=== PATIENT | male | born 1945 | race Caucasian/White ===

== ENCOUNTER 2016-12-20 14:06 | Inpatient (IN) | payer OTHER ==
[2016-12-20] MEDS ORDERED: NS 1000 ML 500 ML IV ONE (14:56)
[2016-12-20] MEDS ORDERED: LEVAQUIN PREMIX IV 750 MG 750 MG/150 ML BAG IV SCH (15:00)
[2016-12-20 15:20] VITALS: BMI 27.1
[2016-12-20] MEDS ORDERED: NS 1000 ML 1,000 ML ONE (15:37)
[2016-12-20 15:47] LABS: BASOPHILS # (AUTO) 0.1 X10^3/uL (0.0-0.1); BASOPHILS % (AUTO) 1.2 % (0.2-1.0); EOSINOPHILS # (AUTO) 0.4 x10^3/uL (0.0-0.2); EOSINOPHILS % (AUTO) 3.5 % (0.9-2.9); HEMATOCRIT 37.4 % (42.0-54.0); LYMPHOCYTES % (AUTO) 9.3 % (21.0-51.0); MEAN CORPUSCULAR HEMOGLOBIN 31.6 pg (27.0-34.0); MEAN CORPUSCULAR HGB CONC 34.8 g/dL (33.0-35.0); MEAN CORPUSCULAR VOLUME 90.6 fL (80.0-100.0); MEAN PLATELET VOLUME 9.1 fL (7.4-11.0); MONOCYTES # (AUTO) 1.1 x10^3/uL (0.3-0.8); MONOCYTES % (AUTO) 10.3 % (0.0-13.0); NEUTROPHILS # (AUTO) 7.8 x10^3/uL (2.2-4.8); NEUTROPHILS % (AUTO) 75.7 % (42.0-75.0); PLATELET COUNT 239 X10^3/uL (150.0-450.0); RED BLOOD COUNT 4.12 X10^6/uL (4.7-6.0); RED CELL DISTRIBUTION WIDTH 14.6 % (11.6-16.5); WHITE BLOOD COUNT 10.3 X10^3/uL (3.6-10.0)
[2016-12-20] MEDS: ROBITUSSIN DM PO SCH ×3 (15:47→21:38)
[2016-12-20 16:06] LABS: ALANINE AMINOTRANSFERASE 19 Units/L (12-78); ALBUMIN 3.4 g/dL (3.4-5.0); ALKALINE PHOSPHATASE 93 Units/L (46-116); ASPARTATE AMINO TRANSFERASE 15 Units/L (15-37); BLOOD UREA NITROGEN 22 mg/dL (7-18); CALCIUM 9.6 mg/dL (8.5-10.1); CARBON DIOXIDE 28.9 mmol/L (21-32); CHLORIDE 101 mmol/L (98-107); COR NA(FOR HYPERGLY) 139 mmol/L (136-145); CREATININE 1.86 mg/dL (0.70-1.30); DIGOXIN 1.02 ng/mL (0.9-2); SODIUM 139 mmol/L (136-145); eGFR BLACK RACES 47 (>60); eGFR NON BLACK RACES 38 (>60)
[2016-12-20 16:08] LABS: LACTIC ACID 1.5 mmol/L (0.4-2.0)
[2016-12-20] MEDS: DUONEB 0.5 MG/3 MG NEB SCH ×5 (16:10→21:31)
[2016-12-20] MEDS ORDERED: SALINE 3% 15 ML NEB TX ONE (16:17)
[2016-12-20] MEDS ORDERED: SALINE 3% 15 ML NEB TX NEB ONE (16:18)
--- NOTE | 2016-12-20 17:21 | RAD ---
HISTORY: Sepsis, fever Study: PA and lateral views of the chest Comparison: 11/08/2013 Findings: There is a rounded opacity measuring 3 cm in the left upper lobe. No effusion or pneumothorax identif ied. There is suggestion of additional opacities in lung bases on the lateral view. The cardiac and m ediastinal contours are within normal limits. The soft tissues are unremarkable. IMPRESSION: 1. 3 cm rounded opacity in the right upper lobe. Differential considerations would include infection versus mass. Additional opacity is suggested at the lung bases on the lateral view. CT of the chest w ith contrast is recommended for further evaluation. Reported By:
[2016-12-20] MEDS: ZOSYN VIAL 4.5 GM 4.5 GM in NS 100 ML IV + SPIKE MINIBAG* 100 ML IV SCH ×2 (17:33→22:34)
[2016-12-20] MEDS: NS 1000 ML 1,000 ML IV SCH ×2 (20:14→22:34)
[2016-12-20] MEDS: RESTORIL CAP 15 MG PO PRN (21:37)
[2016-12-20 21:53] LABS: BILIRUBIN,URINE NEGATIVE (NEGATIVE); BLOOD/HEMOGLOBIN,URINE 1+ (NEGATIVE); GLUCOSE, URINE NEGATIVE (NEGATIVE); KETONES,URINE NEGATIVE (NEGATIVE); LEUKOCYTE ESTERASE ,URINE 1+ (NEGATIVE); NITRITES,URINE NEGATIVE (NEGATIVE); PROTEIN,URINE 2+ (NEGATIVE); UROBILINOGEN,URINE NORMAL (NORMAL)
[2016-12-20 22:05] LABS: APPEARANCE,URINE CLEAR (CLEAR); BACTERIA,URINE 1+ /HPF (NEGATIVE); COLOR,URINE YELLOW (YELLOW); MUCUS,URINE FEW /HPF (NEGATIVE); RBC,URINE 0-3 /HPF (NEGATIVE); SQUAMOUS EPITHELIAL CELL,UR RARE /HPF (NEGATIVE)
[2016-12-21] MEDS: ULTRAM PO PRN ×2 (04:50→09:06)
[2016-12-21] MEDS: ZOSYN VIAL 4.5 GM 4.5 GM in NS 100 ML IV + SPIKE MINIBAG* 100 ML IV SCH ×3 (05:00→21:20)
[2016-12-21] MEDS: NS 1000 ML 1,000 ML IV SCH ×3 (05:01→21:16)
[2016-12-21 05:47] LABS: ALANINE AMINOTRANSFERASE 15 Units/L (12-78); ALBUMIN 2.5 g/dL (3.4-5.0); ALKALINE PHOSPHATASE 76 Units/L (46-116); ASPARTATE AMINO TRANSFERASE 17 Units/L (15-37); BLOOD UREA NITROGEN 20 mg/dL (7-18); CALCIUM 8.8 mg/dL (8.5-10.1); CARBON DIOXIDE 26.8 mmol/L (21-32); CHLORIDE 107 mmol/L (98-107); CREATININE 1.25 mg/dL (0.70-1.30); SODIUM 141 mmol/L (136-145); TOTAL PROTEIN 6.4 g/dL (6.4-8.2); eGFR BLACK RACES > 60 (>60); eGFR NON BLACK RACES > 60 (>60)
[2016-12-21 05:48] LABS: BASOPHILS # (AUTO) 0.1 X10^3/uL (0.0-0.1); BASOPHILS % (AUTO) 0.8 % (0.2-1.0); EOSINOPHILS # (AUTO) 0.4 x10^3/uL (0.0-0.2); EOSINOPHILS % (AUTO) 4.3 % (0.9-2.9); HEMATOCRIT 33.8 % (42.0-54.0); HEMOGLOBIN 11.6 g/dL (13.5-18.0); LYMPHOCYTES # (AUTO) 1.8 X10^3/uL (1.3-2.9); LYMPHOCYTES % (AUTO) 17.7 % (21.0-51.0); MEAN CORPUSCULAR HEMOGLOBIN 31.1 pg (27.0-34.0); MEAN CORPUSCULAR HGB CONC 34.3 g/dL (33.0-35.0); MEAN CORPUSCULAR VOLUME 90.7 fL (80.0-100.0); MEAN PLATELET VOLUME 9.3 fL (7.4-11.0); MONOCYTES % (AUTO) 9.9 % (0.0-13.0); NEUTROPHILS # (AUTO) 6.9 x10^3/uL (2.2-4.8); NEUTROPHILS % (AUTO) 67.3 % (42.0-75.0); PLATELET COUNT 187 X10^3/uL (150.0-450.0); RED BLOOD COUNT 3.72 X10^6/uL (4.7-6.0); RED CELL DISTRIBUTION WIDTH 14.5 % (11.6-16.5); WHITE BLOOD COUNT 10.2 X10^3/uL (3.6-10.0)
[2016-12-21] MEDS ORDERED: NS 100 ML IV 100 ML IV ONE (06:34)
[2016-12-21] MEDS: ROBITUSSIN DM PO SCH ×4 (09:05→21:18)
[2016-12-21] MEDS: LEVAQUIN PREMIX IV 750 MG 750 MG/150 ML BAG IV SCH (09:05)
[2016-12-21] MEDS: DUONEB 0.5 MG/3 MG NEB SCH ×4 (09:29→20:50)
[2016-12-21] MEDS ORDERED: PATIENT'S HOME MEDICATION (Meclizine Hcl [Meclizine Hcl] 12.5 MG) PO PRN (10:09)
[2016-12-21] MEDS ORDERED: NORCO 5/325 MG TAB PO PRN (10:12)
[2016-12-21] MEDS ORDERED: DHA PO SCH (10:15)
[2016-12-21] MEDS ORDERED: FISH OIL PO SCH (10:15)
[2016-12-21] MEDS ORDERED: FLECAINIDE ACETATE 100 MG PO SCH (10:15)
[2016-12-21] MEDS ORDERED: OMEGA PO SCH (10:15)
[2016-12-21] MEDS ORDERED: EPA PO SCH (10:15)
--- NOTE | 2016-12-21 10:19 | CT ---
CT CHEST WITH IV CONTRAST HISTORY: Septic shock with fever and pneumonia Comparison: Chest x-ray 12/20/2016 Technique: Multiple axial images of the chest were obtained from the thoracic inlet to the upper abdo men after the administration of IV contrast.Dose reduction techniques including Automated Exposure Co ntrol (AEC) and adjustment of mA and kV were utlized. Findings: The heart is normal in size. No pericardial effusion. multiple mediastinal and hilar lymph nodes. Fo r example AP window node measuring 1.5 cm on series 4, image 23, left posterior hilar node measuring 2.4 cm on series 4, image 28, right hilar node measuring 2.2 cm on series 4, image 27. Prevascular no de measuring 2.9 cm on series 4, image 16. Although not optimized to detect pulmonary embolism, no la rge central pulmonary emboli are seen. Spiculated mass in the right upper lobe measuring 3.5 x 3.3 cm on series 4, image 17. Moderate emphys irvin trace atelectasis at the right lung base. No suspicious pulmonary nodules or masses. Limited images of the upper abdomen are unremarkable. No aggressive osseous lesions. IMPRESSION: 1. Spiculated right upper lobe lung mass. While this may represent focal infection, malignancy cert ainly can not be excluded especially in the presence of multiple prominent mediastinal lymph nodes. R ecommend reimaging upon resolution of acute symptoms if patient is truly septic and has symptoms of p neumonia. Reported By:
[2016-12-21] MEDS ORDERED: ANTIVERT TAB 25 MG PO PRN (10:22)
--- NOTE | 2016-12-21 10:55 | DR.UPDATE ---
H&P Update History and Physical Update: PATIENT WAS SEEN IN THE OFFICE ON 12/20/16. A H&P WAS COMPLETED PRIOR TO ADMISSION. PATIENT HAS BEEN SEEN AND EXAMINED WITH NO CHANGES NOTED TO H&P. Changes noted: NO Yes with the following:
[2016-12-21] MEDS: NEURONTIN CAP 400 MG PO SCH ×3 (10:58→21:19)
[2016-12-21] MEDS: LANOXIN PO SCH (10:58)
[2016-12-21] MEDS: FERROUS SULFATE PO SCH ×2 (10:58→21:19)
[2016-12-21] MEDS: ZESTRIL TAB 40 MG PO SCH (10:58)
[2016-12-21] MEDS: NORVASC TAB 10 MG PO SCH (10:58)
[2016-12-21] MEDS: TAB-A-VITE PO SCH (10:58)
[2016-12-21] MEDS: ASPIRIN EC 81 MG PO SCH (10:59)
[2016-12-21] MEDS: LASIX PO SCH ×2 (11:00→21:19)
[2016-12-21] MEDS: COREG TAB 12.5 MG PO SCH ×2 (11:00→21:19)
[2016-12-21] MEDS ORDERED: POTASSIUM CHLORIDE PO SCH (17:00)
[2016-12-21] MEDS: K-DUR TAB 20 MEQ PO SCH (17:20)
[2016-12-21] MEDS: LIPITOR TAB 40 MG PO SCH (21:18)
[2016-12-21] MEDS: TUSSIONEX PENNKINETIC SUSP PO PRN (21:18)
[2016-12-21] MEDS: RESTORIL CAP 15 MG PO PRN (21:19)
[2016-12-21] MEDS: TAMBOCOR PO SCH (21:20)
[2016-12-22] MEDS: NS 1000 ML 1,000 ML IV SCH ×4 (05:19→22:25)
[2016-12-22] MEDS: ZOSYN VIAL 4.5 GM 4.5 GM in NS 100 ML IV + SPIKE MINIBAG* 100 ML IV SCH ×3 (05:19→21:21)
[2016-12-22] MEDS: NEURONTIN CAP 400 MG PO SCH ×3 (05:19→21:23)
[2016-12-22 06:06] LABS: BASOPHILS # (AUTO) 0.1 X10^3/uL (0.0-0.1); BASOPHILS % (AUTO) 1.4 % (0.2-1.0); EOSINOPHILS # (AUTO) 0.3 x10^3/uL (0.0-0.2); EOSINOPHILS % (AUTO) 3.8 % (0.9-2.9); HEMATOCRIT 33.2 % (42.0-54.0); HEMOGLOBIN 11.5 g/dL (13.5-18.0); LYMPHOCYTES # (AUTO) 1.5 X10^3/uL (1.3-2.9); LYMPHOCYTES % (AUTO) 18.2 % (21.0-51.0); MEAN CORPUSCULAR HEMOGLOBIN 30.7 pg (27.0-34.0); MEAN CORPUSCULAR HGB CONC 34.7 g/dL (33.0-35.0); MEAN CORPUSCULAR VOLUME 88.5 fL (80.0-100.0); MEAN PLATELET VOLUME 8.9 fL (7.4-11.0); MONOCYTES # (AUTO) 0.9 x10^3/uL (0.3-0.8); MONOCYTES % (AUTO) 10.4 % (0.0-13.0); NEUTROPHILS # (AUTO) 5.5 x10^3/uL (2.2-4.8); NEUTROPHILS % (AUTO) 66.2 % (42.0-75.0); PLATELET COUNT 205 X10^3/uL (150.0-450.0); RED BLOOD COUNT 3.76 X10^6/uL (4.7-6.0); RED CELL DISTRIBUTION WIDTH 14.4 % (11.6-16.5); WHITE BLOOD COUNT 8.3 X10^3/uL (3.6-10.0)
[2016-12-22 06:22] LABS: ALANINE AMINOTRANSFERASE 17 Units/L (12-78); ALBUMIN 2.6 g/dL (3.4-5.0); ALKALINE PHOSPHATASE 81 Units/L (46-116); ASPARTATE AMINO TRANSFERASE 18 Units/L (15-37); BLOOD UREA NITROGEN 10 mg/dL (7-18); CALCIUM 8.8 mg/dL (8.5-10.1); CARBON DIOXIDE 29.1 mmol/L (21-32); CHLORIDE 105 mmol/L (98-107); COR CA(FOR HYPOALB) 9.9 mg/dL (8.5-10.1); COR NA(FOR HYPERGLY) 142 mmol/L (136-145); CREATININE 0.89 mg/dL (0.70-1.30); SODIUM 142 mmol/L (136-145); TOTAL PROTEIN 6.7 g/dL (6.4-8.2); eGFR BLACK RACES > 60 (>60); eGFR NON BLACK RACES > 60 (>60)
--- NOTE | 2016-12-22 06:36 | RAD ---
HISTORY: Shortness of breath Study: Chest AP portable Comparison: CT chest December 21, 2016, chest x-ray December 20, 2016 Findings: The patient is status post median sternotomy. The heart is within normal limits in size. The sobia are normal. The lungs are free of acute alveolar infiltrates. Once again noted is a 3.37 centimeter righ t upper lobe nodule . Although this could represent a rounded pneumonia primary lung neoplasm is also a distinct possibility. If this does not resolve with treatment or if the patient does not have pneu monia clinically PET-CT is recommended for further evaluation. No pleural effusions are identified. T he bony thorax is unremarkable. IMPRESSION: 3.37 centimeter rounded density in the right upper lobe. See discussion and recommendations as above Reported By:
--- NOTE | 2016-12-22 08:12 | PCM.PROG ---
Progress Note - Progress Note for Day of Date: 12/21/16 - Subjective Subjective: WAS ADMITTED FOR SEPTIC SHOCK, FEVER, AND PNEUMONIA. TODAY , HE IS ALERT AND ORIENTED, LYING IN BED ON MORNING ROUNDS. PATIENT'S AND DAUGHTER ARE AT BEDSIDE. HE IS NOTED WITH COMPLAINTS OF SHORTNESS OF BREATH, COUGH, AND RIGHT UPPER CHEST PAIN. ON EXAMINATION, LUNGS ARE NOTED WITH DIFFUSE WHEEZING AND RHONCHI TO AUSCULTATION. ABDOMEN IS SOFT, ROUND, AND NON-TENDER WITH NORMAL BOWEL SOUNDS NOTED IN ALL QUADRANTS. HE IS NOTED ON NASAL CANNULA WITH OXYGEN AT 2LPM. HE IS ON TELEMETRY WITH SINUS RHYTHM, HR 84 NOTED. HIS VITAL SIGNS THIS MORNING ARE 99.1-84-22-94%-141/65. BLOOD PRESSURE HAS IMPROVED. IT WAS 77/37 IN THE OFFICE. A CBC AND CMP WERE OBTAINED THIS MORNING. ABNORMAL LAB VALUES INCLUDE THE FOLLOWING: WBC 10.2, RBC 3.72, HGB 11.6, HCT 33.8, BUN 20, GLUCOSE 101, ALBUMIN 2.5. FLU SWAB WAS OBTAINED YESTERDAY AND IS NEGATIVE. CHEST XRAY FROM ADMISSION RECOMMENDED A CHEST CT TO EVALUATE A SUSPICIOUS OPACITY. A CT WAS OBTAINED YESTERDAY AFTERNOON. RESULTS ARE STILL PENDING THIS MORNING. TODAY, WE WILL CONTINUE WITH CURRENT PLAN OF CARE. WE PLAN TO FOLLOW UP WITH AM LABS AND CONTNUE TO MONITOR PATIENT. - Past Medical Family Social History Past Med/Fam/Surg Hx: No changes since H&P Allergies: Allergies warfarin [From Coumadin] Allergy (Verified 12/20/16 14:56) - Review of Systems ROS: No change since H&P - Vital Signs and I&O's Vital Signs: Temperature 99.1 F Pulse Rate [Apical] 74 Pulse Rate 89 Respiratory Rate 20 Blood Pressure [Left Arm] 142/67 Blood Pressure [Right Arm] 136/65 Blood Pressure 127/63 O2 Sat by Pulse Oximetry 93 Intake and Output: Intake & Output 12/19/16 12/20/16 12/21/16 12/22/16 11:59 11:59 11:59 11:59 Intake Total 2141 4502 Output Total 200 4750 Balance 1941 -248 - Physical Exam Oriented: Normal Eyes: Normal Ear: Normal Nose: Normal Throat: Normal Respiratory: Generalized, Wheezes Cardiovascular: Normal : Normal Auscultation: Bowel Sounds: Normal Palpation: Normal Tenderness: Normal Skin: Normal Musculoskeletal: Normal Psychiatric: Normal Mood Description: Calm Affect: Normal Speech Pattern: Clear, Appropriate - Laboratory and Diagnostics Result Diagrams: 12/22/16 05:22 12/22/16 05:22 Labs: 12/20/16 15:35 Blood Blood Culture - Preliminary 12/20/16 15:17 Blood Blood Culture - Preliminary 12/20/16 17:10 Sputum - Expectorated Sputum Sputum Culture - Preliminary 12/20/16 17:10 Sputum - Expectorated Sputum - Final 12/20/16 21:40 Urine,Clean Catch Urine Culture - Preliminary Laboratory WBC 8.3 X10^3/uL (3.6-10.0) 12/22/16 05:22 RBC 3.76 X10^6/uL (4.7-6.0) L 12/22/16 05:22 Hgb 11.5 g/dL (13.5-18.0) L 12/22/16 05:22 Hct 33.2 % (42.0-54.0) L 12/22/16 05:22 MCV 88.5 fL (80.0-100.0) 12/22/16 05:22 MCH 30.7 pg (27.0-34.0) 12/22/16 05:22 MCHC 34.7 g/dL (33.0-35.0) 12/22/16 05:22 RDW 14.4 % (11.6-16.5) 12/22/16 05:22 Plt Count 205 X10^3/uL (150.0-450.0) 12/22/16 05:22 MPV 8.9 fL (7.4-11.0) 12/22/16 05:22 Neut % 66.2 % (42.0-75.0) 12/22/16 05:22 Lymph % 18.2 % (21.0-51.0) L 12/22/16 05:22 [place] % 10.4 % (0.0-13.0) 12/22/16 05:22 Eos % 3.8 % (0.9-2.9) H 12/22/16 05:22 Baso % 1.4 % (0.2-1.0) H 12/22/16 05:22 Neut # 5.5 x10^3/uL (2.2-4.8) H 12/22/16 05:22 Lymph # 1.5 X10^3/uL (1.3-2.9) 12/22/16 05:22 [place] # 0.9 x10^3/uL (0.3-0.8) H 12/22/16 05:22 Eos # 0.3 x10^3/uL (0.0-0.2) H 12/22/16 05:22 Baso # 0.1 X10^3/uL (0.0-0.1) 12/22/16 05:22 Absolute Nucleated RBC 0.0 /100WBC 12/22/16 05:22 Sodium 142 mmol/L (136-145) 12/22/16 05:22 Corrected Sodium 142 mmol/L (136-145) 12/22/16 05:22 Potassium 3.6 mmol/L (3.5-5.1) 12/22/16 05:22 Chloride 105 mmol/L (98-107) 12/22/16 05:22 Carbon Dioxide 29.1 mmol/L (21-32) 12/22/16 05:22 BUN 10 mg/dL (7-18) 12/22/16 05:22 Creatinine 0.89 mg/dL (0.70-1.30) 12/22/16 05:22 Est GFR (MDRD) Af Amer > 60 (>60) 12/22/16 05:22 Est GFR (MDRD) Non-Af > 60 (>60) 12/22/16 05:22 Glucose 113 mg/dL (65-99) H 12/22/16 05:22 Lactic Acid 1.5 mmol/L (0.4-2.0) 12/20/16 15:17 Calcium 8.8 mg/dL (8.5-10.1) 12/22/16 05:22 Corrected Calcium 9.9 mg/dL (8.5-10.1) 12/22/16 05:22 Total Bilirubin 0.20 mg/dL (0.2-1.0) 12/22/16 05:22 AST 18 Units/L (15-37) 12/22/16 05:22 ALT 17 Units/L (12-78) 12/22/16 05:22 Alkaline Phosphatase 81 Units/L (46-116) 12/22/16 05:22 Total Protein 6.7 g/dL (6.4-8.2) 12/22/16 05:22 Albumin 2.6 g/dL (3.4-5.0) L 12/22/16 05:22 Globulin 4.1 g/dL (2.5-4.5) 12/22/16 05:22 Albumin/Globulin Ratio 0.6 Ratio (1.1-2.1) L 12/22/16 05:22 Specimen Type Clean catch urine 12/20/16 21:40 Urine Color Yellow (YELLOW) 12/20/16 21:40 Urine Appearance Clear (CLEAR) 12/20/16 21:40 Urine pH 5.0 (5.0 - 8.0) 12/20/16 21:40 Ur Specific [place] 1.015 (1.000-1.030) 12/20/16 21:40 Urine Protein 2+ (NEGATIVE) 12/20/16 21:40 Urine Glucose (UA) Negative (NEGATIVE) 12/20/16 21:40 Urine Ketones Negative (NEGATIVE) 12/20/16 21:40 Urine Occult Blood 1+ (NEGATIVE) 12/20/16 21:40 Urine Nitrite Negative (NEGATIVE) 12/20/16 21:40 Urine Bilirubin Negative (NEGATIVE) 12/20/16 21:40 Urine Urobilinogen Normal (NORMAL) 12/20/16 21:40 Ur Leukocyte Esterase 1+ (NEGATIVE) 12/20/16 21:40 Urine RBC 0-3 /HPF (NEGATIVE) 12/20/16 21:40 Urine WBC 3-5 /HPF (NEGATIVE) 12/20/16 21:40 Ur Squamous Epith Cells Rare /HPF (NEGATIVE) 12/20/16 21:40 Urine Bacteria 1+ /HPF (NEGATIVE) 12/20/16 21:40 Urine Mucus Few /HPF (NEGATIVE) 12/20/16 21:40 Ur Culture Indicated? Yes/culture set up 12/20/16 21:40 Digoxin 1.02 ng/mL (0.9-2) 12/20/16 15:17 Influenza A (H1N1) PCR Not detected (NOT DETECT) 12/20/16 16:48 Influenza Type A (PCR) Negative (NEGATIVE) 12/20/16 16:48 Influenza Type B (PCR) Negative (NEGATIVE) 12/20/16 16:48 - Plan (1) Pneumonia Status: Acute Qualifiers: Pneumonia type: due to unspecified organism Laterality: right Lung location: upper lobe of lung Qualified Code(s): J18.1 - Lobar pneumonia, unspecified organism Plan: LEVAQUIN 750MG IV DAILY, ZOSYN 4.5GM IV TID, DUONEB QID, SUPPLEMENTAL OXYGEN, CHEST CT TO EVALUATE OPACITY, CONTINUE TO MONITOR
[2016-12-22] MEDS: LEVAQUIN PREMIX IV 750 MG 750 MG/150 ML BAG IV SCH (08:31)
[2016-12-22] MEDS: K-DUR TAB 20 MEQ PO SCH ×2 (08:32→17:29)
[2016-12-22] MEDS: ZESTRIL TAB 40 MG PO SCH (08:32)
[2016-12-22] MEDS: TAMBOCOR PO SCH ×2 (08:32→21:22)
[2016-12-22] MEDS: PriLOSEC PO SCH (08:32)
[2016-12-22] MEDS: LANOXIN PO SCH (08:33)
[2016-12-22] MEDS: ASPIRIN EC 81 MG PO SCH (08:33)
[2016-12-22] MEDS: LOVAZA PO SCH (08:33)
[2016-12-22] MEDS: TAB-A-VITE PO SCH (08:33)
[2016-12-22] MEDS: FERROUS SULFATE PO SCH ×2 (08:33→21:23)
[2016-12-22] MEDS: ROBITUSSIN DM PO SCH ×4 (08:34→21:22)
[2016-12-22] MEDS: LASIX PO SCH ×2 (08:34→21:23)
[2016-12-22] MEDS: COREG TAB 12.5 MG PO SCH ×2 (08:34→21:23)
[2016-12-22] MEDS: NORVASC TAB 10 MG PO SCH (08:34)
[2016-12-22] MEDS: DUONEB 0.5 MG/3 MG NEB SCH ×4 (09:00→20:53)
[2016-12-22] MEDS ORDERED: XANAX PO PRN (10:35)
--- NOTE | 2016-12-22 11:42 | PCM.PROG ---
Progress Note - Progress Note for Day of Date: 12/22/16 - Subjective Subjective: WAS ADMITTED FOR SEPTIC SHOCK, FEVER, AND PNEUMONIA. TODAY , HE IS ALERT AND ORIENTED, LYING IN BED ON MORNING ROUNDS. PATIENT'S IS AT BEDSIDE. HE CONTINUES WITH COMPLAINTS OF COUGH AND RIGHT UPPER CHEST PAIN. ON EXAMINATION, LUNGS CONTINUE WITH DIFFUSE WHEEZING AND RHONCHI TO AUSCULTATION. ABDOMEN IS SOFT, ROUND, AND NON-TENDER WITH NORMAL BOWEL SOUNDS NOTED IN ALL QUADRANTS. HE IS NOTED ON NASAL CANNULA WITH OXYGEN AT 2LPM. HE IS ON TELEMETRY WITH SINUS RHYTHM, HR 74 NOTED. HIS VITAL SIGNS THIS MORNING ARE 99.1-74-20-93%-142/67. BLOOD PRESSURE HAS IMPROVED. A CBc, CMP, AND CHEST XRAY WERE OBTAINED THIS MORNING. ABNORMAL LAB VALUES INCLUDE THE FOLLOWING: RBC 3.76 , HGB 11.5, HCT 33.2, GLUCOSE 113, ALBUMIN 2.6. CHEST CT RESULTS WERE BACK AND REPORTED SPICULATED RIGHT UPPER LOBE LUNG MASS, MULTIPLE MEDIASTINAL AND HILAR LYMPH NODES, MODERATE EMPHYSEMA TRACE ATELECTASIS AT THE RIGHT LLUNG BASE. CHEST XRAY FROM THIS MORNING REPORTED THE SAME MASS, WITH NO PLEURAL EFFUSIONS NOTED. TODAY, WE WILL CONTINUE TO TREAT FOR PNEUMONIA. CASE MANAGEMENT WILL OBTAIN AN APPOINTMENT FOR PATIENT WITH , CARDIOTHORACIS SURGEON IN [place], [place]. OTHERWISE, WE WILL FOLLOW UP WITH AM LABS AND CONTNUE TO MONITOR PATIENT. - Past Medical Family Social History Past Med/Fam/Surg Hx: No changes since H&P Allergies: Allergies warfarin [From Coumadin] Allergy (Verified 12/20/16 14:56) - Review of Systems ROS: No change since H&P - Vital Signs and I&O's Vital Signs: Temperature 99.2 F Pulse Rate [Apical] 83 Pulse Rate 77 Respiratory Rate 20 Blood Pressure [Left Arm] 126/59 Blood Pressure [Right Arm] 136/65 Blood Pressure 127/63 O2 Sat by Pulse Oximetry 95 Intake and Output: Intake & Output 12/19/16 12/20/16 12/21/16 12/22/16 11:59 11:59 11:59 11:59 Intake Total 2141 4502 Output Total 200 4750 Balance 1941 -248 - Physical Exam Oriented: Normal Eyes: Normal Ear: Normal Nose: Normal Throat: Normal Respiratory: Generalized, Wheezes Cardiovascular: Normal : Normal Auscultation: Bowel Sounds: Normal Palpation: Normal Tenderness: Normal Skin: Normal Musculoskeletal: Normal Psychiatric: Normal Mood Description: Calm Affect: Normal Speech Pattern: Clear, Appropriate - Laboratory and Diagnostics Result Diagrams: 12/22/16 05:22 12/22/16 05:22 Labs: 12/20/16 17:10 Sputum - Expectorated Sputum Sputum Culture - Preliminary 12/20/16 17:10 Sputum - Expectorated Sputum - Final 12/20/16 21:40 Urine,Clean Catch Urine Culture - Final 12/20/16 15:35 Blood Blood Culture - Preliminary 12/20/16 15:17 Blood Blood Culture - Preliminary Laboratory WBC 8.3 X10^3/uL (3.6-10.0) 12/22/16 05:22 RBC 3.76 X10^6/uL (4.7-6.0) L 12/22/16 05:22 Hgb 11.5 g/dL (13.5-18.0) L 12/22/16 05:22 Hct 33.2 % (42.0-54.0) L 12/22/16 05:22 MCV 88.5 fL (80.0-100.0) 12/22/16 05:22 MCH 30.7 pg (27.0-34.0) 12/22/16 05:22 MCHC 34.7 g/dL (33.0-35.0) 12/22/16 05:22 RDW 14.4 % (11.6-16.5) 12/22/16 05:22 Plt Count 205 X10^3/uL (150.0-450.0) 12/22/16 05:22 MPV 8.9 fL (7.4-11.0) 12/22/16 05:22 Neut % 66.2 % (42.0-75.0) 12/22/16 05:22 Lymph % 18.2 % (21.0-51.0) L 12/22/16 05:22 [place] % 10.4 % (0.0-13.0) 12/22/16 05:22 Eos % 3.8 % (0.9-2.9) H 12/22/16 05:22 Baso % 1.4 % (0.2-1.0) H 12/22/16 05:22 Neut # 5.5 x10^3/uL (2.2-4.8) H 12/22/16 05:22 Lymph # 1.5 X10^3/uL (1.3-2.9) 12/22/16 05:22 [place] # 0.9 x10^3/uL (0.3-0.8) H 12/22/16 05:22 Eos # 0.3 x10^3/uL (0.0-0.2) H 12/22/16 05:22 Baso # 0.1 X10^3/uL (0.0-0.1) 12/22/16 05:22 Absolute Nucleated RBC 0.0 /100WBC 12/22/16 05:22 Sodium 142 mmol/L (136-145) 12/22/16 05:22 Corrected Sodium 142 mmol/L (136-145) 12/22/16 05:22 Potassium 3.6 mmol/L (3.5-5.1) 12/22/16 05:22 Chloride 105 mmol/L (98-107) 12/22/16 05:22 Carbon Dioxide 29.1 mmol/L (21-32) 12/22/16 05:22 BUN 10 mg/dL (7-18) 12/22/16 05:22 Creatinine 0.89 mg/dL (0.70-1.30) 12/22/16 05:22 Est GFR (MDRD) Af Amer > 60 (>60) 12/22/16 05:22 Est GFR (MDRD) Non-Af > 60 (>60) 12/22/16 05:22 Glucose 113 mg/dL (65-99) H 12/22/16 05:22 Lactic Acid 1.5 mmol/L (0.4-2.0) 12/20/16 15:17 Calcium 8.8 mg/dL (8.5-10.1) 12/22/16 05:22 Corrected Calcium 9.9 mg/dL (8.5-10.1) 12/22/16 05:22 Total Bilirubin 0.20 mg/dL (0.2-1.0) 12/22/16 05:22 AST 18 Units/L (15-37) 12/22/16 05:22 ALT 17 Units/L (12-78) 12/22/16 05:22 Alkaline Phosphatase 81 Units/L (46-116) 12/22/16 05:22 Total Protein 6.7 g/dL (6.4-8.2) 12/22/16 05:22 Albumin 2.6 g/dL (3.4-5.0) L 12/22/16 05:22 Globulin 4.1 g/dL (2.5-4.5) 12/22/16 05:22 Albumin/Globulin Ratio 0.6 Ratio (1.1-2.1) L 12/22/16 05:22 Specimen Type Clean catch urine 12/20/16 21:40 Urine Color Yellow (YELLOW) 12/20/16 21:40 Urine Appearance Clear (CLEAR) 12/20/16 21:40 Urine pH 5.0 (5.0 - 8.0) 12/20/16 21:40 Ur Specific [place] 1.015 (1.000-1.030) 12/20/16 21:40 Urine Protein 2+ (NEGATIVE) 12/20/16 21:40 Urine Glucose (UA) Negative (NEGATIVE) 12/20/16 21:40 Urine Ketones Negative (NEGATIVE) 12/20/16 21:40 Urine Occult Blood 1+ (NEGATIVE) 12/20/16 21:40 Urine Nitrite Negative (NEGATIVE) 12/20/16 21:40 Urine Bilirubin Negative (NEGATIVE) 12/20/16 21:40 Urine Urobilinogen Normal (NORMAL) 12/20/16 21:40 Ur Leukocyte Esterase 1+ (NEGATIVE) 12/20/16 21:40 Urine RBC 0-3 /HPF (NEGATIVE) 12/20/16 21:40 Urine WBC 3-5 /HPF (NEGATIVE) 12/20/16 21:40 Ur Squamous Epith Cells Rare /HPF (NEGATIVE) 12/20/16 21:40 Urine Bacteria 1+ /HPF (NEGATIVE) 12/20/16 21:40 Urine Mucus Few /HPF (NEGATIVE) 12/20/16 21:40 Ur Culture Indicated? Yes/culture set up 12/20/16 21:40 Digoxin 1.02 ng/mL (0.9-2) 12/20/16 15:17 Influenza A (H1N1) PCR Not detected (NOT DETECT) 12/20/16 16:48 Influenza Type A (PCR) Negative (NEGATIVE) 12/20/16 16:48 Influenza Type B (PCR) Negative (NEGATIVE) 12/20/16 16:48 - Plan (1) Pneumonia Status: Acute Qualifiers: Pneumonia type: due to unspecified organism Laterality: right Lung location: upper lobe of lung Qualified Code(s): J18.1 - Lobar pneumonia, unspecified organism Plan: LEVAQUIN 750MG IV DAILY, ZOSYN 4.5GM IV TID, DUONEB QID, SUPPLEMENTAL OXYGEN, CHEST CT TO EVALUATE OPACITY, CONTINUE TO MONITOR (2) Anxiety Status: Acute Plan: XANAX 0.25MG PO BID, CONTINUE TO MONITOR (3) Hypertension Status: Chronic Qualifiers: Hypertension type: essential hypertension Qualified Code(s): I10 - Essential (primary) hypertension Plan: CONTINUE NORVASC 10MG PO DAILY, CONTINUE COREG 12.5MG PO BID, CONTINUE LISINOPRIL 40MG PO DAILY, CONTINUE TO MONITOR (4) Hyperlipidemia Status: Acute Qualifiers: Hyperlipidemia type: mixed hyperlipidemia Qualified Code(s): E78.2 - Mixed hyperlipidemia Plan: CONTINUE LIPITOR, CONTINUE TO MONITOR (5) Irregular heart rhythm Status: Chronic Plan: CONTINUE TAMBOCOR, CONTINUE DIGOXIN, CONTINUE TO MONITOR (6) Insomnia Status: Acute Qualifiers: Insomnia type: unspecified Qualified Code(s): G47.00 - Insomnia, unspecified Plan: CONTINUE RESTORIL 15MG PO HS PRN, CONTINUE TO MONITOR (7) Congestive heart failure Status: Chronic Qualifiers: Congestive heart failure type: unspecified congestive heart failure type Congestive heart failure chronicity: chronic Qualified Code(s): I50.9 - Heart failure, unspecified Plan: CONTINUE LASIX 40MG PO BID, CONTINUE COREG 12.5MG PO BID, CONTINUE TO MONITOR (8) Vertigo Status: Chronic Plan: CONTINUE MECLIZINE, CONTINUE TO MONITOR (9) GERD (gastroesophageal reflux disease) Status: Chronic Qualifiers: Esophagitis presence: esophagitis presence not specified Qualified Code(s) : K21.9 - Gastro-esophageal reflux disease without esophagitis Plan: CONTINUE PRILOSEC, CONTINUE TO MONITOR
[2016-12-22] MEDS: LIPITOR TAB 40 MG PO SCH (21:22)
[2016-12-22] MEDS: TUSSIONEX PENNKINETIC SUSP PO PRN (21:22)
[2016-12-22] MEDS: RESTORIL CAP 15 MG PO PRN (21:23)
[2016-12-23 06:13] LABS: BASOPHILS # (AUTO) 0.1 X10^3/uL (0.0-0.1); BASOPHILS % (AUTO) 1.1 % (0.2-1.0); EOSINOPHILS # (AUTO) 0.4 x10^3/uL (0.0-0.2); EOSINOPHILS % (AUTO) 5.2 % (0.9-2.9); HEMATOCRIT 33.7 % (42.0-54.0); HEMOGLOBIN 11.8 g/dL (13.5-18.0); LYMPHOCYTES # (AUTO) 1.6 X10^3/uL (1.3-2.9); LYMPHOCYTES % (AUTO) 19.6 % (21.0-51.0); MEAN CORPUSCULAR HEMOGLOBIN 30.7 pg (27.0-34.0); MEAN CORPUSCULAR VOLUME 87.8 fL (80.0-100.0); MONOCYTES # (AUTO) 0.7 x10^3/uL (0.3-0.8); MONOCYTES % (AUTO) 9.3 % (0.0-13.0); NEUTROPHILS # (AUTO) 5.2 x10^3/uL (2.2-4.8); NEUTROPHILS % (AUTO) 64.8 % (42.0-75.0); PLATELET COUNT 227 X10^3/uL (150.0-450.0); RED BLOOD COUNT 3.84 X10^6/uL (4.7-6.0); RED CELL DISTRIBUTION WIDTH 14.4 % (11.6-16.5)
[2016-12-23] MEDS: NEURONTIN CAP 400 MG PO SCH (06:16)
[2016-12-23] MEDS: ZOSYN VIAL 4.5 GM 4.5 GM in NS 100 ML IV + SPIKE MINIBAG* 100 ML IV SCH (06:16)
[2016-12-23] MEDS: K-DUR TAB 20 MEQ PO SCH (06:17)
[2016-12-23 06:26] LABS: ALANINE AMINOTRANSFERASE 16 Units/L (12-78); ALBUMIN 2.6 g/dL (3.4-5.0); ALKALINE PHOSPHATASE 78 Units/L (46-116); ASPARTATE AMINO TRANSFERASE 15 Units/L (15-37); BLOOD UREA NITROGEN 9 mg/dL (7-18); CARBON DIOXIDE 28.4 mmol/L (21-32); CHLORIDE 106 mmol/L (98-107); COR CA(FOR HYPOALB) 10.1 mg/dL (8.5-10.1); COR NA(FOR HYPERGLY) 143 mmol/L (136-145); CREATININE 0.92 mg/dL (0.70-1.30); SODIUM 142 mmol/L (136-145); TOTAL PROTEIN 6.7 g/dL (6.4-8.2); eGFR BLACK RACES > 60 (>60); eGFR NON BLACK RACES > 60 (>60)
--- NOTE | 2016-12-23 06:39 | RAD ---
Chest, one view Indication: Shortness of breath Comparison: December 22, 2016 Findings: Heart size is normal with prior median sternotomy again noted. Given differences in techniq ue, the right upper lobe nodular opacity appears grossly unchanged. No focal consolidation, effusion or pneumothorax is identified. Osseous thorax is unremarkable. Impression: Stable rounded opacity within the right upper lobe. Again, further characterization with PET-CT shoul d be considered, if clinically warranted. Reported By:
[2016-12-23] MEDS: DUONEB 0.5 MG/3 MG NEB SCH (09:28)
[2016-12-23] MEDS: LEVAQUIN PREMIX IV 750 MG 750 MG/150 ML BAG IV SCH (09:39)
[2016-12-23] MEDS: ROBITUSSIN DM PO SCH (09:39)
[2016-12-23] MEDS: COREG TAB 12.5 MG PO SCH (09:40)
[2016-12-23] MEDS: PriLOSEC PO SCH (09:40)
[2016-12-23] MEDS: LANOXIN PO SCH (09:41)
[2016-12-23] MEDS: FERROUS SULFATE PO SCH (09:41)
[2016-12-23] MEDS: ZESTRIL TAB 40 MG PO SCH (09:41)
[2016-12-23] MEDS: LOVAZA PO SCH (09:41)
[2016-12-23] MEDS: LASIX PO SCH (09:41)
[2016-12-23] MEDS: NORVASC TAB 10 MG PO SCH (09:41)
[2016-12-23] MEDS: ASPIRIN EC 81 MG PO SCH (09:42)
[2016-12-23] MEDS: TAB-A-VITE PO SCH (09:42)
[2016-12-23] MEDS: TAMBOCOR PO SCH (09:42)
[2016-12-23] MEDS ORDERED: K-DUR TAB 20 MEQ PO PRN (11:52)
[2016-12-23] MEDS ORDERED: K-RIDER 10 MEQ/NS 100 ML 10 MEQ/100 ML BAG IV PRN (11:52)
[2016-12-23] MEDS ORDERED: K-LYTE EFFERVESCENT PO PRN (11:52)
[2016-12-23] MEDS ORDERED: POTASSIUM CHLORIDE LIQ 20 MEQ UDC PO PRN (11:52)
[2016-12-23 14:08] VITALS: BP 149/74
== END 2016-12-23 12:00 | disposition home or self-care (01) | DRG 871 ==
LOC: ICU 14:06 → UNDOADMIN 14:06 → ICU 14:40
PROVIDERS: ADMIT Internal Medicine; ATTEND Internal Medicine
DX: A41.89 Other specified sepsis (principal); J15.0 Pneumonia due to Klebsiella pneumoniae; I95.89 Other hypotension; R91.8 Other nonspecific abnormal finding of lung field; F41.8 Other specified anxiety disorders; I10 Essential (primary) hypertension; E78.2 Mixed hyperlipidemia; G47.00 Insomnia, unspecified; I50.9 Heart failure, unspecified; K21.9 Gastro-esophageal reflux disease without esophagitis; R42 Dizziness and giddiness; I49.8 Other specified cardiac arrhythmias
CPT/HCPCS: 36415; 71010; 71020; 71260; 80053; 80162; 81001; 83605; 85025; 87040; 87070; 87077; 87086; 87186; 87205; 87502; 87503; 93005; 94640; A4222; J1956; J2543; J7620

== ENCOUNTER 2017-01-18 00:09 | Emergency (ER) | payer OTHER ==
[2017-01-18 00:27] VITALS: BP 175/70; BMI 27.5
--- NOTE | 2017-01-18 00:32 | DR.GENAD ---
HPI - HPI Comment HPI Comment: HOME MED DID NOT HELP. NEGATIVE TRAUMA. HISTORY LOW BACK PAIN WITH SCIATICA. - Complaint/Symptoms Chief Complaint Doctors Comments: LOWER BACK PAIN RADIATING TO RIGHT LEG WORSE TONIGHT. Chief Complaint:: PT STATES THAT HE "HAS A BAD NERVE" IN HIS RT LEG. C/O PAIN CONSTANTLY SHOOTING FROM HIS LOWER BACK TO HIS RT HIP DOWN HIS LEG. Self Treatment fo Chief Complaint: PT STATES HE TOO 2 OXYCODONE ABOUT 1.5 HOURS AGO AND HAS GOTTEN NO RELIEF - Nurses notes reviewed Nurses Notes Review: Yes - Source History Provided: Patient - Mode of Arrival Mode of Arrival: Ambulatory - Timing Onset of Chief Complaint: 10/13/16 Came on: Suddenly - Duration Duration: Constant Duration: Days - Severity Severity: Moderate PMH - PMH Past Medical History: Yes Past Medical History: Hypertension Past Surgical History: Yes Surgical History: Appendectomy, CABG/Valve Surgery, Ortho Surgery - Family History History of Family Medical Conditions: Yes Family Medical History: Diabetes Mellitus, Cancer, [place], Sudden Cardiac , Hypertension - Social History Do you use any recreational Drugs:: No - infectious screening Have you traveled outside the country in the last 6 months?: No ROS - Review of Systems Constitutional: No Symptoms Reported Eyes: No Symptoms Reported ENTM: No Symptoms Reported Respiratoy: No Symptoms Reported Cardiovascular: No Symptoms Reported Gastrointestinal/Abdominal: No Symptoms Reported Genitourinary: No Symptoms Reported Neurological: No Symptoms Reported Musculoskeletal: Back Pain, Muscle Pain, Back Integumentary: No Symptoms Reported Hematologic/Lymphatic: No Symptoms Reported Endocrine: No Symptoms Reported All Other Systems: Reviewed and Negative PE - Vital Signs Vitals: Temperature 97.4 F Pulse Rate 73 Respiratory Rate 18 Blood Pressure [Left Arm] 149/74 Blood Pressure [Right Arm] 136/65 Blood Pressure 175/70 O2 Sat by Pulse Oximetry 98 - General Limitations: No Limitations General Appearance: Alert - Head Head Exam: Normal Inspection - Eyes Eye exam: Normal Appearance - ENT ENT Exam: Normal External Ear Exam External Ear Exam: Normal External Inspection TM/Canal Exam: Bilateral Normal Nose Exam: Normal Nose Exam Mouth Exam: Normal Inspection Throat Exam: Normal Inspection - Neck Neck Exam: Trachea Midline - Chest Chest Inspection: Symmetric Chest Wall Rise - Respiratory Respiratory Exam: Normal Lung Sounds Bilat Respiratory Exam: Bilateral Clear to Auscultation - Cardiovascular Cardiovascular Exam: Regular Rate, Normal Rhythm, Normal Heart Sounds - Abdominal Exam Abdominal Exam: Normal Bowel Sounds, Soft. negative: Tenderness - Back Back Exam: Paraspinal Tenderness - Neurologic Neurological Exam: Alert, Oriented X3 - Psychiatric Psychiatric Exam: Normal Affect, Normal Mood - Skin Skin Exam: Normal Color [facility] - Additional Information Additional Information Obtained From: Family - Differential Diagnosis Differential Diagnosis: BACK PAIN, SCIATICA Course - Treatment Treatment: SEE ORDERS. IM PAIN MED IN ED. - Education/Counseling Education/Counseling: Patient, Family, Education Educated On: Diagnosis, Needs for Follow Up - Diagnosis Discharge Problem: Back pain Qualifiers: Back pain location: low back pain Chronicity: acute Back pain laterality: right Sciatica presence: with sciatica Sciatica laterality: sciatica of right side Qualified Code(s): M54.41 - Lumbago with sciatica, right side - Discharge Plan Disposition: 01 HOME, SELF-CARE Condition: Stable Prescriptions: Cyclobenzaprine HCl [FLEXERIL 10 MG *] 10 mg PO BID PRN #10 tab PRN Reason: Ibuprofen [MOTRIN TAB 600 MG *] 600 mg PO TID PRN #20 tab PRN Reason: Pain/Inflammation - Follow ups/Referrals Follow ups/Referrals: Tc Abdi [Primary Care Provider] - 3 days - Instructions Instructions: Back Pain, Adult, [id number] Additional Instructions: RETURB TO ED IF WORSE.
[2017-01-18] MEDS ORDERED: NORFLEX INJ IM ONE (00:44)
[2017-01-18] MEDS ORDERED: TORADOL 60 MG VIAL ONE (00:44)
[2017-01-18] MEDS ORDERED: NORFLEX INJ ONE (00:44)
[2017-01-18] MEDS ORDERED: TORADOL 60 MG VIAL IM ONE (00:44)
== END 2017-01-18 01:53 | disposition home or self-care (01) ==
LOC: ER 00:09
DX: M54.41 Lumbago with sciatica, right side (principal)
CPT/HCPCS: 96372; 99282; J1885; J2360

== ENCOUNTER 2024-02-06 22:11 | Inpatient (IN) ==
--- NOTE | 2024-02-06 22:23 | DR.SOBA ---
HPI Time Seen Time Seen by Provider: 02/06/24 22:22 HPI Comment HPI Comment: 78 y/o with hx cad s/p stent x 1, avr followed by tavr and afib in with at least several days of worsening sob and le edema; he says it started a couple of days ago and his says it started a week ago; he is weak and "can hardly get out of bed"; he uses oxygen at 2lpm / but doesn't feel he's getting enough air; he denies cough, fever, chills, cp, abd pain, n/v/d. PMH PMH Past Medical History: Arthritis, Hypertension and Sleep Apnea Past Surgical History: Yes Surgical History: Angioplasty/Stents, Appendectomy and Ortho Surgery Family History Family Medical History: Diabetes Mellitus and Cancer Social History Do you use any recreational Drugs:: No ROS Review of Systems Constitutional: No Symptoms Reported Eyes: No Symptoms Reported ENTM: No Symptoms Reported Respiratoy: See HPI Cardiovascular: No Symptoms Reported Gastrointestinal/Abdominal: No Symptoms Reported Genitourinary: No Symptoms Reported Neurological: No Symptoms Reported Integumentary: No Symptoms Reported Hematologic/Lymphatic: No Symptoms Reported Endocrine: No Symptoms Reported Psychiatric: No Symptoms Reported PE Vital Signs Vitals: Vital Signs Temperature 97.9 F Pulse Rate 142 Pulse Rate 147 Pulse Rate 146 Pulse Rate 148 Pulse Rate 153 Pulse Rate 151 Pulse Rate 153 Pulse Rate 147 Pulse Rate 145 Pulse Rate 143 Pulse Rate 149 Pulse Rate 141 Pulse Rate 136 Pulse Rate 122 Respiratory Rate 28 Respiratory Rate 28 Respiratory Rate 27 Respiratory Rate 32 Respiratory Rate 32 Respiratory Rate 33 Respiratory Rate 30 Respiratory Rate 31 Respiratory Rate 32 Respiratory Rate 33 Respiratory Rate 29 Respiratory Rate 26 Blood Pressure 152/74 Blood Pressure 148/78 Blood Pressure 130/84 Blood Pressure 139/94 Blood Pressure 140/65 Blood Pressure 135/97 O2 Sat by Pulse Oximetry 99 O2 Sat by Pulse Oximetry 100 O2 Sat by Pulse Oximetry 100 O2 Sat by Pulse Oximetry 100 O2 Sat by Pulse Oximetry 99 O2 Sat by Pulse Oximetry 98 O2 Sat by Pulse Oximetry 97 O2 Sat by Pulse Oximetry 98 O2 Sat by Pulse Oximetry 99 O2 Sat by Pulse Oximetry 98 O2 Sat by Pulse Oximetry 99 O2 Sat by Pulse Oximetry 99 O2 Sat by Pulse Oximetry 96 General Limitations: No Limitations General Appearance: Alert and In No Apparent Distress Head Head Exam: Normal Inspection Eyes Eye exam: Normal Appearance ENT ENT Exam: Normal Exam Neck Neck Exam: Normal Inspection Chest Chest Inspection: Normal Inspection Respiratory Respiratory Exam: Normal Lung Sounds Bilat Respiratory Exam: Bilateral: Clear to Auscultation Cardiovascular Cardiovascular Exam: Regular Rate and Normal Rhythm Abdominal Exam Abdominal Exam: Normal Inspection, Normal Bowel Sounds and Soft Extremities Extremities Exam: Normal Inspection Back Back Exam: Normal Inspection Neurologic Neurological Exam: Alert and Oriented X3 Psychiatric Psychiatric Exam: Normal Affect and Normal Mood Skin Skin Exam: Warm, Dry, Intact and Normal Color Other Exam Other Exam: 3+ pedal edema bilaterally COURSE Reevaluation 1st: Improved Consultation Call Returned: 01:20 Consultation Comments: Dr Mcclure accepts admission. ROR Labs Reviewed Laboratory Results Reviewed?: Yes 02/06/24 22:34 02/06/24 22:34 Laboratory: WBC 8.8 X10^3/uL (3.6-10.0) 02/06/24 22:34 RBC 3.06 X10^6/uL (4.7-6.0) L 02/06/24 22:34 Hgb 9.2 g/dL (13.5-18.0) L 02/06/24 22:34 Hct 26.8 % (42.0-54.0) L 02/06/24 22:34 MCV 87.4 fL (80.0-100.0) 02/06/24 22:34 MCH 30.2 pg (27.0-34.0) 02/06/24 22:34 MCHC 34.6 g/dL (33.0-35.0) 02/06/24 22:34 RDW 17.0 % (11.6-16.5) H 02/06/24 22:34 Plt Count 135 X10^3/uL (150.0-450.0) L 02/06/24 22:34 MPV 8.8 fL (7.4-11.0) 02/06/24 22:34 Neut % (Auto) 77.4 % (42.0-75.0) H 02/06/24 22:34 Lymph % (Auto) 10.5 % (21.0-51.0) L 02/06/24 22:34 [place] % (Auto) 7.4 % (0.0-13.0) 02/06/24 22:34 Eos % (Auto) 4.0 % (0.9-2.9) H 02/06/24 22:34 Baso % (Auto) 0.7 % (0.2-1.0) 02/06/24 22:34 Neut # (Auto) 6.8 x10^3/uL (2.2-4.8) H 02/06/24 22:34 Lymph # (Auto) 0.9 X10^3/uL (1.3-2.9) L 02/06/24 22:34 [place] # (Auto) 0.7 x10^3/uL (0.3-0.8) 02/06/24 22:34 Eos # (Auto) 0.4 x10^3/uL (0.0-0.2) H 02/06/24 22:34 Baso # (Auto) 0.1 X10^3/uL (0.0-0.1) 02/06/24 22:34 Absolute Nucleated RBC 0.0 /100WBC 02/06/24 22:34 PT 15.3 SECONDS (11.8-14.3) 02/06/24 22:34 INR Target Range - 02/06/24 22:34 INR 1.23 (0.8-1.3) 02/06/24 22:34 APTT 32.5 SECONDS (22.9-36.5) 02/06/24 22:34 PTT Comment - 02/06/24 22:34 D-Dimer 1.25 ug/ml (0.0-0.57) H 02/06/24 22:34 Sample Site R bra 02/07/24 00:18 ABG pH 7.450 (7.35-7.45) 02/07/24 00:18 ABG pCO2 59.0 mmHg (35.0-45.0) H* 02/07/24 00:18 ABG pO2 52.0 mmHg (80.0-100.0) L 02/07/24 00:18 ABG HCO3 41.0 mmol/L (22-26) H* 02/07/24 00:18 ABG O2 Saturation 88.0 % (90-100) L 02/07/24 00:18 ABG Base Excess 14.4 mmol/L (-2.0-2.0) H 02/07/24 00:18 Rodriguez Test N/a 02/07/24 00:18 A-a Gradient 102.0 mmHg 02/07/24 00:18 FiO2 32.0 02/07/24 00:18 Blood 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 02/07/24 00:18 Sodium 149 mmol/L (136-145) H 02/06/24 22:34 Corrected Sodium TNP 02/06/24 22:34 Potassium 3.8 mmol/L (3.5-5.1) 02/06/24 22:34 Chloride 107 mmol/L (98-107) 02/06/24 22:34 Carbon Dioxide 39.1 mmol/L (21-32) H 02/06/24 22:34 BUN 22 mg/dL (7-18) H 02/06/24 22:34 Creatinine 0.94 mg/dL (0.70-1.30) 02/06/24 22:34 Est GFR (MDRD) Af Amer > 60 (>60) 02/06/24 22:34 Est GFR (MDRD) Non-Af > 60 (>60) 02/06/24 22:34 Glucose 91 mg/dL (65-99) 02/06/24 22:34 Calcium 7.6 mg/dL (8.5-10.1) L 02/06/24 22:34 Corrected Calcium TNP 02/06/24 22:34 Total Bilirubin 0.50 mg/dL (0.2-1.0) 02/06/24 22:34 AST 24 Units/L (15-37) 02/06/24 22:34 ALT 33 Units/L (12-78) 02/06/24 22:34 Alkaline Phosphatase 111 Units/L (46-116) 02/06/24 22:34 Creatine Kinase 67 Units/L (39-308) 02/06/24 22:34 Troponin I High Sens 17.3 ng/L (4.0-60.0) 02/06/24 22:34 B-Natriuretic Peptide 798 pg/mL (0-79) H 02/06/24 22:34 Total Protein 7.4 g/dL (6.4-8.2) 02/06/24 22:34 Albumin 3.4 g/dL (3.4-5.0) 02/06/24 22:34 Globulin 4.0 g/dL (2.5-4.5) 02/06/24 22:34 Albumin/Globulin Ratio 0.9 Ratio (1.1-2.1) L 02/06/24 22:34 Digoxin 0.48 ng/mL (0.9-2) L 02/06/24 22:34 SARS CoV-2 RNA Rapid SANAM Negative (NEGATIVE) 02/06/24 22:34 XRAY XRAY Interpreted by: Radiologist X-ray Results: CTA: 1. THERE IS A 31 X 51 X 49 MM SOFT TISSUE MASS ALONG THE SUBPLEURAL SURFACE OF THE RIGHT LOWER LOBE THAT IS HIGHLY WORRISOME FOR MALIGNANCY. THERE IS SCAR- LIKE FORMATION AND RETRACTION OF THE RIGHT LOWER LOBE. THE MASS APPEARS TO EXTE ND BEYOND THE FISSURE AND INTO THE REGION OF THE RIGHT MIDDLE LOBE ALTHOUGH THIS IS NOT DEFINITIVELY CLEAR. 2. THERE ARE NO FILLING DEFECTS SEEN IN THE VISUALIZED PULMONARY ARTERIES TO SUGGEST A PULMONARY EMBOLISM. 3. THERE APPEARS TO BE AN AORTIC VALVE STENT IN THE PROXIMAL ASCENDING AORTA ALTHOUGH THIS ISN'T DEFINITIVELY CLEAR. PLEASE CORRELATE WITH PATIENT'S PAST SURGICAL HISTORY. 4. THERE IS FUSIFORM ANEURYSMAL DILATION OF THE ASCENDING AORTA MEASURING 42 X 42 MM. 5. THERE IS MEDIASTINAL LYMPHADENOPATHY WITH THE LARGEST LYMPH NODES IN THE SUBCARINAL REGION MEASURING 26 MM IN SHORT AXIS. 6. THE TRACHEA AND MAINSTEM BRONCHI ARE PATENT. HOWEVER THERE IS IRREGULARITY INVOLVING THE RIGHT MAINSTEM BRONCHUS AND DISTAL AIRWAYS. THE 3RD ORDER VESSELS AND BRONCHI ARE NOT CLEARLY DISCERNIBLE IN THE RIGHT LOWER LOBE. THIS COULD BE DUE TO ASSOCIATED MASS. 7. THERE IS A 31 X 51 X 49 MM SOFT TISSUE MASS ALONG THE SUBPLEURAL SURFACE OF THE RIGHT LOWER LOBE THAT IS HIGHLY WORRISOME FOR MALIGNANCY. 8. THERE IS A MODERATE SIZE RIGHT-SIDED PLEURAL EFFUSION. Opioid Opioid Risk Tool Age (Noel box if 16-45): No History of Preadolescent Sexual Abuse: No Total: 0 Total Score Risk Category: Low Risk Copyright: [facility] predicting aberrant behaviors Discharge Plan Diagnosis Discharge Problem: Congestive heart failure, Right lower lobe lung mass, Pleural effusion, right, AAA (abdominal aortic aneurysm), Atrial fibrillation with RVR Discharge Plan Patient Disposition: 09 ADMITTED INPATIENT Condition: Stable Prescriptions: No Action albuterol sulfate 90 mcg/actuation HFA aerosol inhaler 1 inh inhalation ONCE PRN (Reason: shortness of breath or wheezing) Qty: 6.7 0RF amlodipine 10 mg tablet 10 mg PO QDAY 30 Days Qty: 30 0RF aspirin 81 mg tablet,delayed release (DR/EC) 81 mg PO QDAY 30 Days Qty: 30 0RF calcium carbonate [Calcium 600] 600 mg calcium (1,500 mg) tablet 600 mg PO QDAY 30 Days Qty: 30 0RF Artificial Tears (cmc) 1 % drops 1 drp ophthalmic (eye) QID PRN (Reason: dry eye(s)) Qty: 15 0RF carvedilol 12.5 mg tablet 12.5 mg PO Q12H 30 Days Qty: 60 0RF Rx Instructions: must administer with a meal/food cholecalciferol (vitamin D3) 50 mcg (2,000 unit) capsule 50 mcg PO QDAY 30 Days Qty: 30 0RF clopidogrel 75 mg tablet 75 mg PO QDAY 30 Days Qty: 30 0RF digoxin 125 mcg (0.125 mg) tablet 125 mcg PO QDAY 30 Days Qty: 30 0RF furosemide [Lasix] 40 mg tablet 40 mg PO QDAY 30 Days Qty: 30 0RF gabapentin 300 mg capsule 300 mg PO QDAY 30 Days Qty: 30 0RF lisinopril 40 mg tablet 40 mg PO QDAY 30 Days Qty: 30 0RF magnesium oxide 400 mg magnesium capsule 400 mg PO QDAY 30 Days Qty: 30 0RF meclizine 25 mg tablet 25 mg PO QDAY PRN (Reason: motion sickness) 30 Days Qty: 30 0RF multivitamin Tablet 1 tab PO QDAY 30 Days Qty: 30 0RF omeprazole 40 mg capsule,delayed release(DR/EC) 40 mg PO QDAY 30 Days Qty: 30 0RF potassium chloride 20 mEq tablet extended release 20 meq PO QDAY 30 Days Qty: 30 0RF Rx Instructions: 1/2 in the AM and 1/2 PM. rosuvastatin 40 mg tablet 40 mg PO QDAY 30 Days Qty: 30 0RF vitamin B complex [Vitamins B Complex] Capsule 1 cap PO QDAY 30 Days Qty: 30 0RF Stiolto Respimat 2.5-2.5 mcg/actuation mist 2 puff inhalation QDAY Qty: 4 0RF Health Concerns: Post Hospitalization: new medications and changes needed to prevent readmission or further decline. Pt educated and given instructions on all concerns. Plan of Treatment: Continue with present treatment and follow up plan. Pt is to keep follow up appointment as instructed and take medications as ordered. Follow ups/Referrals Follow ups/Referrals: ,Misc [Primary Care Provider] - 3 days
--- NOTE | 2024-02-06 22:38 | EKG ---
Test Reason : sob Blood Pressure : */* mmHG Vent. Rate : 127 BPM Atrial Rate : * BPM P-R Int : * ms QRS Dur : 108 ms QT Int : 274 ms P-R-T Axes : * -68 73 degrees QTc Int : 398 ms Atrial fibrillation with rapid ventricular response Left axis deviation Incomplete right bundle branch block Inferior infarct , age undetermined Anterior infarct , age undetermined Abnormal ECG No previous ECGs available Confirmed by Joshua Andujar MD ([id number]) on 02/07/2024 7:38:23 AM Referred By: Confirmed By: Joshua Andujar MD
[2024-02-06] MEDS: LASIX IVP ONE (22:47)
[2024-02-06 22:52] LABS: PLATELET COUNT 135 X10^3/uL (150.0-450.0)
[2024-02-06 23:01] LABS: ALANINE AMINOTRANSFERASE 33 Units/L (12-78); ALBUMIN 3.4 g/dL (3.4-5.0); ALKALINE PHOSPHATASE 111 Units/L (46-116); ASPARTATE AMINO TRANSFERASE 24 Units/L (15-37); BLOOD UREA NITROGEN 22 mg/dL (7-18); CALCIUM 7.6 mg/dL (8.5-10.1); CARBON DIOXIDE 39.1 mmol/L (21-32); CHLORIDE 107 mmol/L (98-107); CREATINE KINASE 67 Units/L (39-308); CREATININE 0.94 mg/dL (0.70-1.30); GLUCOSE 91 mg/dL (65-99); POTASSIUM 3.8 mmol/L (3.5-5.1); SODIUM 149 mmol/L (136-145); TOTAL PROTEIN 7.4 g/dL (6.4-8.2); eGFR NON BLACK RACES > 60 (>60)
[2024-02-06 23:05] LABS: BASOPHILS # (AUTO) 0.1 X10^3/uL (0.0-0.1); BASOPHILS % (AUTO) 0.7 % (0.2-1.0); EOSINOPHILS # (AUTO) 0.4 x10^3/uL (0.0-0.2); HEMATOCRIT 26.8 % (42.0-54.0); HEMOGLOBIN 9.2 g/dL (13.5-18.0); LYMPHOCYTES # (AUTO) 0.9 X10^3/uL (1.3-2.9); LYMPHOCYTES % (AUTO) 10.5 % (21.0-51.0); MEAN CORPUSCULAR HEMOGLOBIN 30.2 pg (27.0-34.0); MEAN CORPUSCULAR HGB CONC 34.6 g/dL (33.0-35.0); MEAN CORPUSCULAR VOLUME 87.4 fL (80.0-100.0); MEAN PLATELET VOLUME 8.8 fL (7.4-11.0); MONOCYTES # (AUTO) 0.7 x10^3/uL (0.3-0.8); MONOCYTES % (AUTO) 7.4 % (0.0-13.0); NEUTROPHILS # (AUTO) 6.8 x10^3/uL (2.2-4.8); NEUTROPHILS % (AUTO) 77.4 % (42.0-75.0); RED BLOOD COUNT 3.06 X10^6/uL (4.7-6.0); WHITE BLOOD COUNT 8.8 X10^3/uL (3.6-10.0)
[2024-02-06 23:08] LABS: INR 1.23 (0.8-1.3)
[2024-02-06] MEDS ORDERED: OMNIPAQUE 350 mg/mL 100 mL BTL 100 ML ONE (23:16)
[2024-02-06] MEDS ORDERED: NS 100 ML IV 100 ML ONE (23:16)
[2024-02-07] MEDS: LANOXIN INJ IVP STA (00:15)
[2024-02-07 00:24] LABS: ABG BASE EXCESS 14.4 mmol/L (-2.0-2.0)
--- NOTE | 2024-02-07 00:46 | CT ---
EXAM:CTA CHEST WITH CONTRASTHISTORY:Elevated D-dimerCOMPARISON:None.TECHNIQUE:Axial images were acquired of the chest with IV contrast for a CT angiogram. Coronal and sagittal images were provided. All images were reviewed in a variety of windows and levels. 3D 8 mm thick MIPS images were provided.RADIATION REDUCTION TECHNIQUE: Automated exposure control, Adjustment of the mA and/or kV according to patient size, or iterative reconstruction techniques were used. 8 mm thick axial MIPS images were provided.FINDINGS:CHEST:THYROID GLAND: The thyroid gland is unremarkable.HEART AND VESSELS: There appears to be an aortic valve stent in the proximal ascending aorta although this isn't definitively clear. Please correlate with patient's past surgical history. There is fusiform aneurysmal dilation of the ascending aorta measuring 42 x 42 mm. Heavy calcified plaque burden is noted. The heart size is within normal limits. There is no evidence of a pericardial effusion. The main pulmonary artery size is within normal limits. There are no filling defects seen in the visualized pulmonary arteries to suggest a pulmonary embolism.LYMPHNODES: There is mediastinal lymphadenopathy with the largest lymph nodes in the subcarinal region measuring 26 mm in short axis. There is no evidence of axillary lymphadenopathy. There is no evidence of left hilar lymphadenopathy. Prominent soft tissues in the region of the right hilum are seen which may be right hilar lymphadenopathy although this isn't definitively clear as the right hilum has irregular contour.AIRWAY: The trachea and mainstem bronchi are patent. However there is irregularity involving the right mainstem bronchus and distal airways. The 3rd order vessels and bronchi are not clearly discernible in the right lower lobe.LUNGS: There is a 31 x 51 x 49 mm soft tissue mass along the subpleural surface of the right lower lobe that is highly worrisome for malignancy. There is scar-like formation and retraction of the right lower lobe. The mass appears to extend beyond the fissure and into the region of the right middle lobe although this is not definitively clear. There is no left-sided pleural effusion. There is a moderate size right-sided pleural effusion. There is no evidence of pneumothorax.ESOPHAGUS: The esophagus is grossly unremarkable.BONES: The visualized bones demonstrate degenerative changes. There are no concerning lytic or blastic lesions identified.UPPER ABDOMINAL STRUCTURES: The visualized portions of the upper abdominal structures are unremarkable.IMPRESSION:1. THERE IS A 31 X 51 X 49 MM SOFT TISSUE MASS ALONG THE SUBPLEURAL SURFACE OF THE RIGHT LOWER LOBE THAT IS HIGHLY WORRISOME FOR MALIGNANCY. THERE IS SCAR-LIKE FORMATION AND RETRACTION OF THE RIGHT LOWER LOBE. THE MASS APPEARS TO EXTEND BEYOND THE FISSURE AND INTO THE REGION OF THE RIGHT MIDDLE LOBE ALTHOUGH THIS IS NOT DEFINITIVELY CLEAR.2. THERE ARE NO FILLING DEFECTS SEEN IN THE VISUALIZED PULMONARY ARTERIES TO SUGGEST A PULMONARY EMBOLISM.3. THERE APPEARS TO BE AN AORTIC VALVE STENT IN THE PROXIMAL ASCENDING AORTA ALTHOUGH THIS ISN'T DEFINITIVELY CLEAR. PLEASE CORRELATE WITH PATIENT'S PAST SURGICAL HISTORY.4. THERE IS FUSIFORM ANEURYSMAL DILATION OF THE ASCENDING AORTA MEASURING 42 X 42 MM.5. THERE IS MEDIASTINAL LYMPHADENOPATHY WITH THE LARGEST LYMPH NODES IN THE SUBCARINAL REGION MEASURING 26 MM IN SHORT AXIS.6. THE TRACHEA AND MAINSTEM BRONCHI ARE PATENT. HOWEVER THERE IS IRREGULARITY INVOLVING THE RIGHT MAINSTEM BRONCHUS AND DISTAL AIRWAYS. THE 3RD ORDER VESSELS AND BRONCHI ARE NOT CLEARLY DISCERNIBLE IN THE RIGHT LOWER LOBE. THIS COULD BE DUE TO ASSOCIATED MASS.7. THERE IS A 31 X 51 X 49 MM SOFT TISSUE MASS ALONG THE SUBPLEURAL SURFACE OF THE RIGHT LOWER LOBE THAT IS HIGHLY WORRISOME FOR MALIGNANCY.8. THERE IS A MODERATE SIZE RIGHT-SIDED PLEURAL EFFUSION.THIS IS AN ELECTRONICALLY VERIFIED FINAL [id number]/07/2024 12:42 AM - Electronically signed by Hernando Juarez MD
[2024-02-07] MEDS: LOPRESSOR INJ 5 MG AMP IVP ONE (01:15)
[2024-02-07] MEDS ORDERED: CONSULT PHARMACY - POTASSIUM & MAGNESIUM XX SCH ×2 (02:00→06:00)
[2024-02-07 04:36] LABS: BASOPHILS # (AUTO) 0.1 X10^3/uL (0.0-0.1); EOSINOPHILS # (AUTO) 0.3 x10^3/uL (0.0-0.2); EOSINOPHILS % (AUTO) 4.2 % (0.9-2.9); HEMATOCRIT 27.4 % (42.0-54.0); HEMOGLOBIN 9.5 g/dL (13.5-18.0); LYMPHOCYTES # (AUTO) 0.7 X10^3/uL (1.3-2.9); LYMPHOCYTES % (AUTO) 8.5 % (21.0-51.0); MEAN CORPUSCULAR HEMOGLOBIN 30.4 pg (27.0-34.0); MEAN CORPUSCULAR HGB CONC 34.5 g/dL (33.0-35.0); MEAN CORPUSCULAR VOLUME 88.1 fL (80.0-100.0); MEAN PLATELET VOLUME 8.5 fL (7.4-11.0); MONOCYTES # (AUTO) 0.6 x10^3/uL (0.3-0.8); MONOCYTES % (AUTO) 6.9 % (0.0-13.0); NEUTROPHILS # (AUTO) 6.4 x10^3/uL (2.2-4.8); NEUTROPHILS % (AUTO) 79.4 % (42.0-75.0); PLATELET COUNT 131 X10^3/uL (150.0-450.0); RED BLOOD COUNT 3.12 X10^6/uL (4.7-6.0); RED CELL DISTRIBUTION WIDTH 16.8 % (11.6-16.5); WHITE BLOOD COUNT 8.1 X10^3/uL (3.6-10.0)
[2024-02-07 04:42] LABS: ALANINE AMINOTRANSFERASE 32 Units/L (12-78); ALBUMIN 3.5 g/dL (3.4-5.0); ALKALINE PHOSPHATASE 109 Units/L (46-116); ASPARTATE AMINO TRANSFERASE 23 Units/L (15-37); BLOOD UREA NITROGEN 19 mg/dL (7-18); CALCIUM 7.7 mg/dL (8.5-10.1); CARBON DIOXIDE 40.7 mmol/L (21-32); CHLORIDE 104 mmol/L (98-107); CREATININE 0.91 mg/dL (0.70-1.30); GLUCOSE 109 mg/dL (65-99); POTASSIUM 3.6 mmol/L (3.5-5.1); SODIUM 148 mmol/L (136-145); TOTAL PROTEIN 7.6 g/dL (6.4-8.2); eGFR NON BLACK RACES > 60 (>60)
[2024-02-07] MEDS ORDERED: NS 250 ML IV 250 ML IV ONE (06:18)
[2024-02-07] MEDS: MAGNESIUM SULFATE 1 GRAM/100 mL PREMIX 1 G/100 ML BAG IV SCH (06:20)
[2024-02-07] MEDS: NS 250 ML IV 250 ML IV PRN (06:29)
--- NOTE | 2024-02-07 06:30 | RAD ---
EXAM:Two-view chestHISTORY:Shortness of breath, weaknessCOMPARISON:01/23/2024FINDINGS:Yonathan flowers is status post median sternotomy and valve replacement. Heart size is within normal limits. Janelle are normal. There is a right pleural effusion present along with some haziness in the right lung base which could represent infiltrate or fluid. Follow-up until complete resolution is recommended. Remainder of the lung bro are clear. No left pleural effusion identified. Bony thorax is unremarkable with the exception of bilateral glenohumeral joint degenerative joint disease.IMPRESSION:Small right pleural effusionHaziness at the right lung base could represent infiltrate or fluid. Follow-up until complete resolution is recommended.Remainder of the lung bro appear clearTHIS IS AN ELECTRONICALLY VERIFIED FINAL [id number]/07/2024 6:27 AM - Electronically signed by Zev Murray MD
[2024-02-07] MEDS: MAGNESIUM SULFATE 1 GRAM/100 mL PREMIX 1 G/100 ML BAG IV ONE ×2 (06:50→07:34)
[2024-02-07] MEDS: LANOXIN INJ IVP SCH (08:30)
[2024-02-07] MEDS: PULMICORT NEB TX 0.5 MG NEB SCH (08:59)
[2024-02-07] MEDS: XOPENEX 1.25 MG/3 ML NEBULE NEB SCH (08:59)
[2024-02-07] MEDS ORDERED: K-RIDER 10 MEQ/100 ML WATER 10 MEQ/100 ML BAG IV SCH (09:00)
[2024-02-07] MEDS: NS IV ONE (10:11)
[2024-02-07] MEDS: POTASSIUM CHLORIDE IV ONE (10:11)
[2024-02-07] MEDS: [UNRECOGNIZED DRUG - OTHER] IV ONE (10:11)
[2024-02-07] MEDS: MAG-OX TAB PO SCH (10:14)
[2024-02-07] MEDS: LASIX IVP SCH (10:14)
[2024-02-07] MEDS: LOVENOX INJ 40 MG SYR SC SCH (10:15)
[2024-02-07] MEDS: COREG TAB 12.5 MG PO SCH (10:15)
[2024-02-07] MEDS ORDERED: PATIENT'S HOME MEDICATION (Omeprazole 40 mg capsule,delayed release(DR/EC)) PO SCH (10:15)
--- NOTE | 2024-02-07 10:19 | DR.H&P ---
H&P History & Physical for Day of: H&P Date: 02/07/24 Chief Complaint Chief Complaint: sob, weakness History of Present Illness History of Present Illness: Mr Gage is a 78y/o male with a PMH of lung cancer s/p resection, HTN, CHF, CAD, Atrial fibrillation presented with worsening dyspnea. He does use 3L NC at home. He is currently being treated for lung cancer recurrence with radiation and chemo. He was supposed to start chemo treatment today. ER work up showed elevated HR concerning for Afib with RVR. He was given metoprolol IV. D-dimer and BNP were elevated, trop (-). CTA showed RLL lung mass, no PE. Moderate pleural effusion. He was given IV lasix and admitted to the ICU for further monitoring. He is currently on 3L NC. His HR has been between 100-120s. Labs/imaging reviewed: -WBC 8.1 Hgb 9.5 K 3.6 Mag 0.3 BUN/Cr 19/0.91 -AB.45/59/52/41 Plan: continue ICU monitoring and telemetry. Wean O2 as tolerated. Continue IV lasix, monitor I&Os, daily weight. Resume home medications. Consult cardiology. Replace Mag IV and PO. Repeat Mag level at 12 pm. Replace electrolytes as per protocol. Lovenox ppx. Continue nebs. Monitor AM labs/imaging. Past Medical History Past Medical History: Arthritis, Hypertension and Sleep Apnea Past Surgical History Surgical History: Angioplasty/Stents, Appendectomy, CABG/Valve Surgery, Ortho Surgery and Other Family History Family Medical History: Diabetes Mellitus, Cancer, Coronary Artery Disease and Hypertension Social History Does patient currently use any type of tobacco product: No Have you used tobacco products in the last 12 months: No Type of Tobacco Use: None Does any household member use tobacco: No Alcohol Use: None Drug Use: None Allergies Allergies Allergy/AdvReac Type Severity Reaction Status Date / Time warfarin [From Coumadin] AdvReac Intermediate gastric Verified 09/04/23 11:40 bleeding Labs 02/07/24 04:18 02/07/24 04:18 Labs: Laboratory WBC 8.1 X10^3/uL (3.6-10.0) 02/07/24 04:18 RBC 3.12 X10^6/uL (4.7-6.0) L 02/07/24 04:18 Hgb 9.5 g/dL (13.5-18.0) L 02/07/24 04:18 Hct 27.4 % (42.0-54.0) L 02/07/24 04:18 MCV 88.1 fL (80.0-100.0) 02/07/24 04:18 MCH 30.4 pg (27.0-34.0) 02/07/24 04:18 MCHC 34.5 g/dL (33.0-35.0) 02/07/24 04:18 RDW 16.8 % (11.6-16.5) H 02/07/24 04:18 Plt Count 131 X10^3/uL (150.0-450.0) L 02/07/24 04:18 MPV 8.5 fL (7.4-11.0) 02/07/24 04:18 Neut % (Auto) 79.4 % (42.0-75.0) H 02/07/24 04:18 Lymph % (Auto) 8.5 % (21.0-51.0) L 02/07/24 04:18 [place] % (Auto) 6.9 % (0.0-13.0) 02/07/24 04:18 Eos % (Auto) 4.2 % (0.9-2.9) H 02/07/24 04:18 Baso % (Auto) 1.0 % (0.2-1.0) 02/07/24 04:18 Neut # (Auto) 6.4 x10^3/uL (2.2-4.8) H 02/07/24 04:18 Lymph # (Auto) 0.7 X10^3/uL (1.3-2.9) L 02/07/24 04:18 [place] # (Auto) 0.6 x10^3/uL (0.3-0.8) 02/07/24 04:18 Eos # (Auto) 0.3 x10^3/uL (0.0-0.2) H 02/07/24 04:18 Baso # (Auto) 0.1 X10^3/uL (0.0-0.1) 02/07/24 04:18 Absolute Nucleated RBC 0.1 /100WBC 02/07/24 04:18 PT 15.3 SECONDS (11.8-14.3) 02/06/24 22:34 INR Target Range - 02/06/24 22:34 INR 1.23 (0.8-1.3) 02/06/24 22:34 APTT 32.5 SECONDS (22.9-36.5) 02/06/24 22:34 PTT Comment - 02/06/24 22:34 D-Dimer 1.25 ug/ml (0.0-0.57) H 02/06/24 22:34 Sample Site R bra 02/07/24 00:18 ABG pH 7.450 (7.35-7.45) 02/07/24 00:18 ABG pCO2 59.0 mmHg (35.0-45.0) H* 02/07/24 00:18 ABG pO2 52.0 mmHg (80.0-100.0) L 02/07/24 00:18 ABG HCO3 41.0 mmol/L (22-26) H* 02/07/24 00:18 ABG O2 Saturation 88.0 % (90-100) L 02/07/24 00:18 ABG Base Excess 14.4 mmol/L (-2.0-2.0) H 02/07/24 00:18 Rodriguez Test N/a 02/07/24 00:18 A-a Gradient 102.0 mmHg 02/07/24 00:18 FiO2 32.0 02/07/24 00:18 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 Sodium 148 mmol/L (136-145) H 02/07/24 04:18 Corrected Sodium TNP 02/07/24 04:18 Potassium 3.6 mmol/L (3.5-5.1) 02/07/24 04:18 Chloride 104 mmol/L (98-107) 02/07/24 04:18 Carbon Dioxide 40.7 mmol/L (21-32) H 02/07/24 04:18 BUN 19 mg/dL (7-18) H 02/07/24 04:18 Creatinine 0.91 mg/dL (0.70-1.30) 02/07/24 04:18 Est GFR (MDRD) Af Amer > 60 (>60) 02/07/24 04:18 Est GFR (MDRD) Non-Af > 60 (>60) 02/07/24 04:18 Glucose 109 mg/dL (65-99) H 02/07/24 04:18 Calcium 7.7 mg/dL (8.5-10.1) L 02/07/24 04:18 Corrected Calcium TNP 02/07/24 04:18 Magnesium 0.3 mg/dL (2.0-2.9) L 02/07/24 04:18 Total Bilirubin 0.50 mg/dL (0.2-1.0) 02/07/24 04:18 AST 23 Units/L (15-37) 02/07/24 04:18 ALT 32 Units/L (12-78) 02/07/24 04:18 Alkaline Phosphatase 109 Units/L (46-116) 02/07/24 04:18 Creatine Kinase 67 Units/L (39-308) 02/06/24 22:34 Troponin I High Sens 17.3 ng/L (4.0-60.0) 02/06/24 22:34 B-Natriuretic Peptide 798 pg/mL (0-79) H 02/06/24 22:34 Total Protein 7.6 g/dL (6.4-8.2) 02/07/24 04:18 Albumin 3.5 g/dL (3.4-5.0) 02/07/24 04:18 Globulin 4.1 g/dL (2.5-4.5) 02/07/24 04:18 Albumin/Globulin Ratio 0.9 Ratio (1.1-2.1) L 02/07/24 04:18 Digoxin 0.48 ng/mL (0.9-2) L 02/06/24 22:34 SARS CoV-2 RNA Rapid SANAM Negative (NEGATIVE) 02/06/24 22:34 Review of Systems Constitutional: Weakness Eyes: No Symptoms Reported ENT: No Symptoms Reported Respiratory: SOB with Excertion Cardiovascular: Palpitations and Edema Gastrointestinal: No Symptoms Reported Genitourinary: No Symptoms Reported Musculoskeletal: No Symptoms Reported Skin: No Symptoms Reported Neurological: No Symptoms Reported Physical Exam Vital Signs: Vital Signs Temperature 98.7 F Temperature 98.7 F Temperature 98.4 F Pulse Rate 99 Pulse Rate 94 Pulse Rate 136 Pulse Rate 94 Pulse Rate 102 Pulse Rate 108 Pulse Rate 106 Respiratory Rate 18 Respiratory Rate 24 Respiratory Rate 20 Respiratory Rate 22 Respiratory Rate 23 Respiratory Rate 23 Blood Pressure 102/57 Blood Pressure 160/59 Blood Pressure 134/76 Blood Pressure 133/79 Blood Pressure 146/77 Blood Pressure 146/85 O2 Sat by Pulse Oximetry 100 O2 Sat by Pulse Oximetry 100 O2 Sat by Pulse Oximetry 97 O2 Sat by Pulse Oximetry 100 O2 Sat by Pulse Oximetry 100 O2 Sat by Pulse Oximetry 100 O2 Sat by Pulse Oximetry 100 Oriented: Unable to test Eyes: Normal Nose: Normal Throat: Normal Respiratory: Diminished Throughout, RLL Rales and LLL Rales Cardiovascular: Tachycardia, Irregular and Edema Auscultation: Bowel Sounds: Normal Palpation: Normal Tenderness: Normal Skin: Normal Musculoskeletal: Leg Psychiatric: Normal Mood Description: Calm Affect: Normal Assessment/Plan (1) CHF exacerbation: Qualifiers: Heart failure type: unspecified Qualified Code(s): I50.9 - Heart failure, unspecified Status: Acute (2) Atrial fibrillation with RVR: Status: Acute (3) Pleural effusion, right: Status: Acute (4) Hypomagnesemia: Status: Acute (5) Hypokalemia: Status: Acute (6) Right lower lobe lung mass: Status: Chronic (7) CAD (coronary artery disease): Qualifiers: Associated angina: without angina Coronary Disease-Associated Artery/Lesion type: [place] artery [place] vs. transplanted heart: [place] heart Qualified Code(s): I25.10 - Atherosclerotic heart disease of [place] coronary artery without angina pectoris Status: Chronic (8) S/P TAVR (transcatheter aortic valve replacement): Status: Chronic (9) Chronic respiratory failure: Qualifiers: Respiratory failure complication: hypoxia Qualified Code(s): J96.11 - Chronic respiratory failure with hypoxia Status: Chronic Review H&P Reviewed: Yes Patient was examined?: Yes
[2024-02-07] MEDS: PLAVIX PO SCH (12:19)
[2024-02-07] MEDS: ASPIRIN EC 81 MG PO SCH (12:19)
--- NOTE | 2024-02-07 13:23 | DR.CONSULT ---
CONSULT Consultation for Day of: Date: 02/07/24 Chief Complaint Chief Complaint: sob/edema Allergies Allergies Allergy/AdvReac Type Severity Reaction Status Date / Time warfarin [From Coumadin] AdvReac Intermediate gastric Verified 09/04/23 11:40 bleeding History of Present Illness History of Present Illness: 78 yo male- just had third recurrence of small ceel lung cancer- ungergoing xrt- no chemo yet- been sob 2 weeks or so- unaware of fast hr- in er: felt to be in chf- rafib- cta negative for PE but lung mass noted- has cad w stents before tavr few years ago- recent echo: good lv, aoV good- original avr/maze 2009- no afib since until now- had issues with coumadin so cant use it Past Medical History Past Medical History: Arthritis, Hypertension and Sleep Apnea Past Surgical History Surgical History: Angioplasty/Stents, Appendectomy, CABG/Valve Surgery, Ortho Surgery and Other Family History Family Medical History: Diabetes Mellitus, Cancer, Coronary Artery Disease and Hypertension Social History Does patient currently use any type of tobacco product: No Have you used tobacco products in the last 12 months: No Type of Tobacco Use: None Does any household member use tobacco: No Alcohol Use: None Drug Use: None Medications Home Medications: warfarin [From Coumadin] Adverse Reaction (Intermediate, Verified 09/04/23 11:40) gastric bleeding CONTINUE taking the following medications aspirin 81 mg tablet 81 mg PO DAILY 02/07/24 [History] clonazepam 1 mg tablet 1 mg PO HS 02/07/24 [History] duloxetine 30 mg capsule,delayed release (Cymbalta) 30 mg PO DAILY 02/07/24 [History] hydroxychloroquine 200 mg tablet 200 mg PO BID 02/07/24 [History] meclizine 25 mg tablet 25 mg PO BID 02/07/24 [History] omeprazole 40 mg capsule,delayed release 40 mg PO BID 02/07/24 [History] Physical Exam Vital Signs: Vital Signs Temperature 98.7 F Temperature 98.7 F Pulse Rate 90 Pulse Rate 91 Pulse Rate 99 Pulse Rate 97 Pulse Rate 94 Pulse Rate 136 Pulse Rate 94 Respiratory Rate 20 Respiratory Rate 20 Respiratory Rate 20 Respiratory Rate 18 Respiratory Rate 24 Respiratory Rate 20 Blood Pressure 123/60 Blood Pressure 132/58 Blood Pressure 126/59 Blood Pressure 102/57 Blood Pressure 160/59 Blood Pressure 134/76 O2 Sat by Pulse Oximetry 100 O2 Sat by Pulse Oximetry 100 O2 Sat by Pulse Oximetry 100 O2 Sat by Pulse Oximetry 100 O2 Sat by Pulse Oximetry 100 O2 Sat by Pulse Oximetry 97 O2 Sat by Pulse Oximetry 100 alert ox3 irreg irreg osman decraesed bs bases mild edema Labs: wbc 8k, hct 27, plt 131 k 3.6 ddimer 1.25 but cta negative for PE cr 0.9 bun 19 alb 3.5 tsh 1.9 tele: afib Plan (1) CHF exacerbation: Status: Acute Qualifiers: Heart failure type: unspecified Qualified Code(s): I50.9 - Heart failure, unspecified Narrative Support Text: due to afib/rvr Plan: rate control/diuresis (2) Atrial fibrillation with RVR: Status: Acute Plan: eliquis ok to use w tavr valves- amio load - will do po- consider yolis/cv if not in nsr in several days/week (3) Pleural effusion, right: Status: Acute (4) Right lower lobe lung mass: Status: Chronic Narrative Support Text: metastatic lung cancer- small cell per family (5) CAD (coronary artery disease): Status: Chronic Qualifiers: Coronary Disease-Associated Artery/Lesion type: [place] artery [place] vs. transplanted heart: [place] heart Associated angina: without angina Qualified Code(s): I25.10 - Atherosclerotic heart disease of [place] coronary artery without angina pectoris Narrative Support Text: s/p stents before tavr (6) S/P TAVR (transcatheter aortic valve replacement): Status: Chronic
[2024-02-07] MEDS: ELIQUIS PO SCH (14:31)
[2024-02-07] MEDS: CORDARONE TAB 200 MG PO SCH (17:15)
[2024-02-07] MEDS: CRESTOR TAB 10 MG PO SCH (21:04)
[2024-02-08 04:58] LABS: BASOPHILS # (AUTO) 0.1 X10^3/uL (0.0-0.1); BASOPHILS % (AUTO) 0.8 % (0.2-1.0); EOSINOPHILS # (AUTO) 0.3 x10^3/uL (0.0-0.2); EOSINOPHILS % (AUTO) 3.5 % (0.9-2.9); HEMATOCRIT 26.7 % (42.0-54.0); HEMOGLOBIN 9.1 g/dL (13.5-18.0); LYMPHOCYTES # (AUTO) 0.6 X10^3/uL (1.3-2.9); LYMPHOCYTES % (AUTO) 8.2 % (21.0-51.0); MEAN CORPUSCULAR HEMOGLOBIN 30.1 pg (27.0-34.0); MEAN CORPUSCULAR HGB CONC 33.9 g/dL (33.0-35.0); MEAN CORPUSCULAR VOLUME 88.6 fL (80.0-100.0); MEAN PLATELET VOLUME 8.8 fL (7.4-11.0); MONOCYTES # (AUTO) 0.5 x10^3/uL (0.3-0.8); NEUTROPHILS # (AUTO) 5.9 x10^3/uL (2.2-4.8); NEUTROPHILS % (AUTO) 80.5 % (42.0-75.0); PLATELET COUNT 109 X10^3/uL (150.0-450.0); RED BLOOD COUNT 3.01 X10^6/uL (4.7-6.0); RED CELL DISTRIBUTION WIDTH 16.4 % (11.6-16.5); WHITE BLOOD COUNT 7.3 X10^3/uL (3.6-10.0)
[2024-02-08 05:07] LABS: ALANINE AMINOTRANSFERASE 34 Units/L (12-78); ALKALINE PHOSPHATASE 106 Units/L (46-116); ASPARTATE AMINO TRANSFERASE 28 Units/L (15-37); BLOOD UREA NITROGEN 17 mg/dL (7-18); CALCIUM 8.3 mg/dL (8.5-10.1); CARBON DIOXIDE 42.9 mmol/L (21-32); CHLORIDE 103 mmol/L (98-107); COR CA(FOR HYPOALB) 9.1 mg/dL (8.5-10.1); COR NA(FOR HYPERGLY) 146 mmol/L (136-145); CREATININE 0.87 mg/dL (0.70-1.30); GLUCOSE 111 mg/dL (65-99); MAGNESIUM 1.9 mg/dL (2.0-2.9); POTASSIUM 3.9 mmol/L (3.5-5.1); SODIUM 146 mmol/L (136-145); TOTAL PROTEIN 6.7 g/dL (6.4-8.2); eGFR NON BLACK RACES > 60 (>60)
[2024-02-08] MEDS ORDERED: CONSULT PHARMACY - POTASSIUM & MAGNESIUM XX SCH (06:00)
[2024-02-08 07:50] VITALS: BMI 24.4
[2024-02-08] MEDS ORDERED: MAG-OX TAB PO SCH (08:00)
--- NOTE | 2024-02-08 09:46 | PCM.PROG ---
Progress Note Progress Note for Day of Date of Exam: 02/08/24 Subjective Subjective: Mr Gage is a 78y/o male with a PMH of lung cancer s/p resection, HTN, CHF, CAD, Atrial fibrillation admitted for A-fib with RVR, CHF exacerbation right pleural effusion. This morning he is resting comfortably in bed. No acute events overnight. He does report that his breathing has significantly improved compared to yesterday. Labs/imaging: WBC 7.3, hemoglobin 9.1, platelets 109, sodium 146, potassium 3.9, creatinine 0.87, glucose 111, magnesium 1.9,. Chest x-ray ordered and is pending. Will continue with amiodarone and restart home digoxin. Heart rate appears to be better cont rolled. Continue IV Lasix 40 mg daily. Patient is currently on his home oxygen. Home medications have been resumed. Otherwise continue with current treatment plan. Continue closely monitor and follow-up labs/imaging. Time spent for clinical assessment, reviewing labs/imaging, physical exam, dec ision making and documentation greater than 45 mins. Past Medical Family Social History Allergies: Allergies warfarin [From Coumadin] Adverse Reaction (Intermediate, Verified 09/04/23 11:40) gastric bleeding Review of Systems ROS changes noted: see HPI Vital Signs and I&O's Vital Signs: Vital Signs Temperature 97.9 F Temperature 98.8 F Pulse Rate 96 Pulse Rate 92 Pulse Rate 91 Pulse Rate 118 Pulse Rate 112 Pulse Rate 102 Pulse Rate 87 Pulse Rate 86 Pulse Rate 84 Pulse Rate 82 Pulse Rate 83 Pulse Rate 87 Pulse Rate 87 Pulse Rate 85 Pulse Rate 84 Pulse Rate 86 Pulse Rate 86 Pulse Rate 121 Pulse Rate 87 Pulse Rate 86 Pulse Rate 91 Pulse Rate 86 Pulse Rate 88 Pulse Rate 85 Pulse Rate 85 Pulse Rate 83 Respiratory Rate 21 Respiratory Rate 23 Respiratory Rate 24 Respiratory Rate 29 Respiratory Rate 24 Respiratory Rate 26 Respiratory Rate 20 Respiratory Rate 19 Respiratory Rate 18 Respiratory Rate 18 Respiratory Rate 19 Respiratory Rate 20 Respiratory Rate 18 Respiratory Rate 18 Respiratory Rate 20 Respiratory Rate 20 Respiratory Rate 25 Respiratory Rate 25 Respiratory Rate 21 Respiratory Rate 24 Respiratory Rate 22 Respiratory Rate 21 Respiratory Rate 24 Respiratory Rate 22 Respiratory Rate 21 Respiratory Rate 20 Blood Pressure 132/65 Blood Pressure 117/62 Blood Pressure 157/65 Blood Pressure 144/62 Blood Pressure 127/64 Blood Pressure 136/62 Blood Pressure 130/70 O2 Sat by Pulse Oximetry 98 O2 Sat by Pulse Oximetry 98 O2 Sat by Pulse Oximetry 97 O2 Sat by Pulse Oximetry 95 O2 Sat by Pulse Oximetry 100 O2 Sat by Pulse Oximetry 99 O2 Sat by Pulse Oximetry 100 O2 Sat by Pulse Oximetry 99 O2 Sat by Pulse Oximetry 99 O2 Sat by Pulse Oximetry 98 O2 Sat by Pulse Oximetry 98 O2 Sat by Pulse Oximetry 99 O2 Sat by Pulse Oximetry 98 O2 Sat by Pulse Oximetry 99 O2 Sat by Pulse Oximetry 100 O2 Sat by Pulse Oximetry 100 O2 Sat by Pulse Oximetry 100 O2 Sat by Pulse Oximetry 98 O2 Sat by Pulse Oximetry 100 O2 Sat by Pulse Oximetry 99 O2 Sat by Pulse Oximetry 97 O2 Sat by Pulse Oximetry 99 O2 Sat by Pulse Oximetry 98 O2 Sat by Pulse Oximetry 100 O2 Sat by Pulse Oximetry 100 O2 Sat by Pulse Oximetry 100 Intake and Output: Intake & Output 02/05/24 02/06/24 02/07/24 02/08/24 23:59 23:59 23:59 23:59 Intake Total 543 / 543 558 / 558 Output Total 800 / 800 4050 / 4050 200 / 200 Balance -800 / -800 -3507 / -3507 358 / 358 Physical Exam Oriented: Normal Eyes: Normal Nose: Normal Throat: Normal Respiratory: Normal Cardiovascular: Irregular and Edema Auscultation: Bowel Sounds: Normal Tenderness: Normal Skin: Normal Musculoskeletal: Normal Psychiatric: Normal Mood Description: Calm Affect: Normal Speech Pattern: Clear and Appropriate Laboratory and Diagnostics 02/08/24 04:23 02/08/24 04:23 Labs: Laboratory WBC 7.3 X10^3/uL (3.6-10.0) 02/08/24 04:23 RBC 3.01 X10^6/uL (4.7-6.0) L 02/08/24 04:23 Hgb 9.1 g/dL (13.5-18.0) L 02/08/24 04:23 Hct 26.7 % (42.0-54.0) L 02/08/24 04:23 MCV 88.6 fL (80.0-100.0) 02/08/24 04:23 MCH 30.1 pg (27.0-34.0) 02/08/24 04:23 MCHC 33.9 g/dL (33.0-35.0) 02/08/24 04:23 RDW 16.4 % (11.6-16.5) 02/08/24 04:23 Plt Count 109 X10^3/uL (150.0-450.0) L 02/08/24 04:23 MPV 8.8 fL (7.4-11.0) 02/08/24 04:23 Neut % (Auto) 80.5 % (42.0-75.0) H 02/08/24 04:23 Lymph % (Auto) 8.2 % (21.0-51.0) L 02/08/24 04:23 [place] % (Auto) 7.0 % (0.0-13.0) 02/08/24 04:23 Eos % (Auto) 3.5 % (0.9-2.9) H 02/08/24 04:23 Baso % (Auto) 0.8 % (0.2-1.0) 02/08/24 04:23 Neut # (Auto) 5.9 x10^3/uL (2.2-4.8) H 02/08/24 04:23 Lymph # (Auto) 0.6 X10^3/uL (1.3-2.9) L 02/08/24 04:23 [place] # (Auto) 0.5 x10^3/uL (0.3-0.8) 02/08/24 04:23 Eos # (Auto) 0.3 x10^3/uL (0.0-0.2) H 02/08/24 04:23 Baso # (Auto) 0.1 X10^3/uL (0.0-0.1) 02/08/24 04:23 Absolute Nucleated RBC 0.0 /100WBC 02/08/24 04:23 PT 15.3 SECONDS (11.8-14.3) 02/06/24 22:34 INR Target Range - 02/06/24 22:34 INR 1.23 (0.8-1.3) 02/06/24 22:34 APTT 32.5 SECONDS (22.9-36.5) 02/06/24 22:34 PTT Comment - 02/06/24 22:34 D-Dimer 1.25 ug/ml (0.0-0.57) H 02/06/24 22:34 Sample Site R bra 02/07/24 00:18 ABG pH 7.450 (7.35-7.45) 02/07/24 00:18 ABG pCO2 59.0 mmHg (35.0-45.0) H* 02/07/24 00:18 ABG pO2 52.0 mmHg (80.0-100.0) L 02/07/24 00:18 ABG HCO3 41.0 mmol/L (22-26) H* 02/07/24 00:18 ABG O2 Saturation 88.0 % (90-100) L 02/07/24 00:18 ABG Base Excess 14.4 mmol/L (-2.0-2.0) H 02/07/24 00:18 [place] Test N/a 02/07/24 00:18 A-a Gradient 102.0 mmHg 02/07/24 00:18 FiO2 32.0 02/07/24 00:18 Blood Gas Comments Pt amairani well. prosecuting attorney 02/07/24 00:18 Sodium 146 mmol/L (136-145) H 02/08/24 04:23 Corrected Sodium 146 mmol/L (136-145) H 02/08/24 04:23 Potassium 3.9 mmol/L (3.5-5.1) 02/08/24 04:23 Chloride 103 mmol/L (98-107) 02/08/24 04:23 Carbon Dioxide 42.9 mmol/L (21-32) H 02/08/24 04:23 BUN 17 mg/dL (7-18) 02/08/24 04:23 Creatinine 0.87 mg/dL (0.70-1.30) 02/08/24 04:23 Est GFR (MDRD) Af Amer > 60 (>60) 02/08/24 04:23 Est GFR (MDRD) Non-Af > 60 (>60) 02/08/24 04:23 Glucose 111 mg/dL (65-99) H 02/08/24 04:23 Calcium 8.3 mg/dL (8.5-10.1) L 02/08/24 04:23 Corrected Calcium 9.1 mg/dL (8.5-10.1) 02/08/24 04:23 Magnesium 1.9 mg/dL (2.0-2.9) L 02/08/24 04:23 Total Bilirubin 0.50 mg/dL (0.2-1.0) 02/08/24 04:23 AST 28 Units/L (15-37) 02/08/24 04:23 ALT 34 Units/L (12-78) 02/08/24 04:23 Alkaline Phosphatase 106 Units/L (46-116) 02/08/24 04:23 Creatine Kinase 67 Units/L (39-308) 02/06/24 22:34 Troponin I High Sens 17.3 ng/L (4.0-60.0) 02/06/24 22:34 B-Natriuretic Peptide 798 pg/mL (0-79) H 02/06/24 22:34 Total Protein 6.7 g/dL (6.4-8.2) 02/08/24 04:23 Albumin 3.0 g/dL (3.4-5.0) L 02/08/24 04:23 Globulin 3.7 g/dL (2.5-4.5) 02/08/24 04:23 Albumin/Globulin Ratio 0.8 Ratio (1.1-2.1) L 02/08/24 04:23 TSH 3rd Generation 1.942 uIU/mL (0.358-3.74) 02/07/24 04:18 Digoxin 0.48 ng/mL (0.9-2) L 02/06/24 22:34 SARS CoV-2 RNA Rapid SANAM Negative (NEGATIVE) 02/06/24 22:34 Plan (1) CHF exacerbation: Status: Acute Qualifiers: Heart failure type: unspecified Qualified Code(s): I50.9 - Heart failure, unspecified (2) Atrial fibrillation with RVR: Status: Acute (3) Pleural effusion, right: Status: Acute (4) Right lower lobe lung mass: Status: Chronic (5) CAD (coronary artery disease): Status: Chronic Qualifiers: Coronary Disease-Associated Artery/Lesion type: [place] artery [place] vs. transplanted heart: [place] heart Associated angina: without angina Qualified Code(s): I25.10 - Atherosclerotic heart disease of [place] coronary artery without angina pectoris (6) S/P TAVR (transcatheter aortic valve replacement): Status: Chronic
[2024-02-08] MEDS: LANOXIN or DIGITEK PO SCH (10:35)
[2024-02-08] MEDS: MAG-OX TAB PO SCH (11:43)
--- NOTE | 2024-02-08 13:38 | NOTE.SOAP ---
Soap Note Note for Day of Date of Exam: 02/08/24 Subjective Data Subjective Data: sob better, edema better- doesnt feel his heart rate Objective Data Objective Data: tele: afib 90-100, bp 108-124 lungs : clear ant cor osman irreg irreg edema: minimal labs: hct 27 k 3.9 na 146 cr 0.87 echo:01/11 24: normal lv, aov good, mild ms 1.9 cm2- PA 80!!! Assessment Assessment: lung cancer, cad, valvular heart disease, afib, chf, pulm htn Plan Plan: dig added for short term to better rate control- on bb/amio load- on doac- needs few more days to let amio get in body- tentatively yolis/cv monday - must be very careful with sedation due to pulm htn-discussed w anesthesia
[2024-02-08] MEDS: RESTORIL CAP 15 MG PO PRN (21:31)
--- NOTE | 2024-02-08 21:58 | RAD ---
EXAM: CHEST X-RAYHISTORY: Follow-up evaluation. Right lung upper and middle lobectomy.TECHNIQUE: AP chest x-ray dated February 08, 2024 at 10:11 AM.COMPARISON: CXR dated February 06, 2024.FINDINGS:There is severe aortic atherosclerosis. The patient status post median sternotomy, presumably for CABG.There is evidence for cardiomegaly. The pulmonary vascularity and interstitial markings are diffusely prominent, consistent with mild CHF or volume overload in the appropriate clinical setting; differential diagnosis includes (but is not limited to) bronchitis and interstitial pneumonia in the appropriate clinical setting.There is significant interval progression of increased bronchopulmonary markings of the right lower lobe, with stable asymmetrical elevation of the right hemidiaphragm by approximately 6 cm, in keeping with postpneumonectomy volume loss and/or atelectatic change and/or acute right lower lobe bronchopneumonia in the appropriate clinical setting. Recommend clinical correlation and appropriate follow-up evaluation to complete clearance.There is no gross pleural effusion, or pneumothorax seen. Diffuse osteopenia is noted. There is severe osteoarthritis of the glenohumeral joints, left greater than right. The visualized bony structures are otherwise within normal limits.IMPRESSION:1. Significant interval progression of increased bronchopulmonary markings of the right lower lobe, with stable asymmetrical elevation of the right hemidiaphragm by approximately 6 cm, in keeping with postpneumonectomy volume loss and/or atelectatic change and/or acute right lower lobe bronchopneumonia in the appropriate clinical setting.2. Findings consistent with mild CHF or volume overload in the appropriate clinical setting (improved appearance); DDX includes (but is not limited to) bronchitis and interstitial pneumonia in the appropriate clinical setting.3. Recommend clinical correlation and appropriate follow-up CXR evaluation to ensure interval clearance as clinically warranted.4. Consider follow-up noncontrast chest CT for further characterization as clinically warranted.THIS IS AN ELECTRONICALLY VERIFIED FINAL [id number]/2024 9:55 PM - Electronically signed by Compa Mcdonnell MD
[2024-02-09 05:29] LABS: BASOPHILS # (AUTO) 0.1 X10^3/uL (0.0-0.1); BASOPHILS % (AUTO) 0.8 % (0.2-1.0); EOSINOPHILS # (AUTO) 0.4 x10^3/uL (0.0-0.2); EOSINOPHILS % (AUTO) 5.3 % (0.9-2.9); HEMATOCRIT 27.5 % (42.0-54.0); HEMOGLOBIN 9.4 g/dL (13.5-18.0); LYMPHOCYTES # (AUTO) 0.8 X10^3/uL (1.3-2.9); LYMPHOCYTES % (AUTO) 11.1 % (21.0-51.0); MEAN CORPUSCULAR HEMOGLOBIN 30.3 pg (27.0-34.0); MEAN CORPUSCULAR HGB CONC 34.2 g/dL (33.0-35.0); MEAN CORPUSCULAR VOLUME 88.4 fL (80.0-100.0); MEAN PLATELET VOLUME 8.9 fL (7.4-11.0); MONOCYTES # (AUTO) 0.5 x10^3/uL (0.3-0.8); NEUTROPHILS # (AUTO) 5.2 x10^3/uL (2.2-4.8); NEUTROPHILS % (AUTO) 75.8 % (42.0-75.0); PLATELET COUNT 125 X10^3/uL (150.0-450.0); RED BLOOD COUNT 3.11 X10^6/uL (4.7-6.0); RED CELL DISTRIBUTION WIDTH 16.4 % (11.6-16.5); WHITE BLOOD COUNT 6.8 X10^3/uL (3.6-10.0)
[2024-02-09 05:36] LABS: ALANINE AMINOTRANSFERASE 57 Units/L (12-78); ALBUMIN 3.2 g/dL (3.4-5.0); ALKALINE PHOSPHATASE 116 Units/L (46-116); ASPARTATE AMINO TRANSFERASE 50 Units/L (15-37); BLOOD UREA NITROGEN 14 mg/dL (7-18); CALCIUM 9.3 mg/dL (8.5-10.1); CHLORIDE 102 mmol/L (98-107); COR CA(FOR HYPOALB) 9.9 mg/dL (8.5-10.1); COR NA(FOR HYPERGLY) 144 mmol/L (136-145); CREATININE 0.92 mg/dL (0.70-1.30); GLUCOSE 112 mg/dL (65-99); MAGNESIUM 2.1 mg/dL (2.0-2.9); POTASSIUM 4.4 mmol/L (3.5-5.1); SODIUM 144 mmol/L (136-145); TOTAL PROTEIN 7.3 g/dL (6.4-8.2); eGFR NON BLACK RACES > 60 (>60)
--- NOTE | 2024-02-09 08:32 | NOTE.SOAP ---
Soap Note Note for Day of Date of Exam: 02/09/24 Subjective Data Subjective Data: sob/edema improved- sat in chair for few hours- walked alittle around the room Objective Data Objective Data: tele: afib rate 90-100 p 120-160 labs: hct 27 k 4.4 Assessment Assessment: lung mets,cad,tavr, afib/chf-better Plan Plan: yolis/cv monday after few more days to load amio
[2024-02-09] MEDS ORDERED: NS 250 ML IV 250 ML IV ONE (14:38)
[2024-02-09] MEDS: ROCEPHIN VIAL 1 GRAM 1 G in NS 100 ML IV 100 ML IV SCH (14:55)
[2024-02-09] MEDS: MAG-OX TAB PO SCH (21:00)
--- NOTE | 2024-02-09 21:13 | PCM.PROG ---
Progress Note Progress Note for Day of Date of Exam: 02/09/24 Subjective Subjective: Mr Gage is a 78y/o male with a PMH of lung cancer s/p resection, HTN, CHF, CAD, Atrial fibrillation admitted for A-fib with RVR, CHF exacerbation right pleural effusion. This morning he was examined at bedside. No acute events overnight. He reports feeling better compared to yesterday. Labs/imaging: WBC 6.8, Hemoglobin 9.4, platelets 125, sodium 144, potassium 4.4, creatinine 0.92, glucose 112, Chest x-ray ordered yesterday revealed significant interval progression of increased bronchopulmonary markings of the right lower lobe. Chest x-ray this morning pending. Oral prophylaxis Rocephin daily. Will continue with amiodarone and home digoxin. Continue IV Lasix 40 mg daily. Patient is currently on his home oxygen. Home medications have been resumed. Cardiology planning on loading amiodarone over the weekend and then performing a CIRILO/cardioversion on Monday. Otherwise continue with current treatment plan. Continue closely monitor and follow-up labs/imaging. Time spent for clinical assessment, reviewing labs/imaging, physical exam, decision making and documentation greater than 45 mins. Past Medical Family Social History Allergies: Allergies warfarin [From Coumadin] Adverse Reaction (Intermediate, Verified 09/04/23 11:40) gastric bleeding Review of Systems ROS changes noted: see HPI Vital Signs and I&O's Vital Signs: Vital Signs Temperature 98.2 F Temperature 98.2 F Pulse Rate 92 Pulse Rate 99 Pulse Rate 109 Pulse Rate 96 Pulse Rate 92 Pulse Rate 95 Respiratory Rate 28 Respiratory Rate 18 Respiratory Rate 24 Respiratory Rate 24 Respiratory Rate 19 Respiratory Rate 23 Blood Pressure 144/77 Blood Pressure 157/77 Blood Pressure 149/67 Blood Pressure 139/72 Blood Pressure 142/64 Blood Pressure 129/64 O2 Sat by Pulse Oximetry 99 O2 Sat by Pulse Oximetry 99 O2 Sat by Pulse Oximetry 100 O2 Sat by Pulse Oximetry 100 O2 Sat by Pulse Oximetry 95 O2 Sat by Pulse Oximetry 100 Intake and Output: Intake & Output 02/06/24 02/07/24 02/08/24 02/09/24 23:59 23:59 23:59 23:59 Intake Total 543 / 543 2128 / 2128 2250 / 2250 Output Total 800 / 800 4050 / 4050 1700 / 1700 1600 / 1600 Balance -800 / -800 -3507 / -3507 428 / 428 650 / 650 Physical Exam Oriented: Normal Eyes: Normal Nose: Normal Throat: Normal Respiratory: Normal Cardiovascular: Irregular and Edema Auscultation: Bowel Sounds: Normal Tenderness: Normal Skin: Normal Musculoskeletal: Normal Psychiatric: Normal Mood Description: Calm Affect: Normal Speech Pattern: Clear and Appropriate Laboratory and Diagnostics 02/09/24 04:49 02/09/24 04:49 Labs: Laboratory WBC 6.8 X10^3/uL (3.6-10.0) 02/09/24 04:49 RBC 3.11 X10^6/uL (4.7-6.0) L 02/09/24 04:49 Hgb 9.4 g/dL (13.5-18.0) L 02/09/24 04:49 Hct 27.5 % (42.0-54.0) L 02/09/24 04:49 MCV 88.4 fL (80.0-100.0) 02/09/24 04:49 MCH 30.3 pg (27.0-34.0) 02/09/24 04:49 MCHC 34.2 g/dL (33.0-35.0) 02/09/24 04:49 RDW 16.4 % (11.6-16.5) 02/09/24 04:49 Plt Count 125 X10^3/uL (150.0-450.0) L 02/09/24 04:49 MPV 8.9 fL (7.4-11.0) 02/09/24 04:49 Neut % (Auto) 75.8 % (42.0-75.0) H 02/09/24 04:49 Lymph % (Auto) 11.1 % (21.0-51.0) L 02/09/24 04:49 [place] % (Auto) 7.0 % (0.0-13.0) 02/09/24 04:49 Eos % (Auto) 5.3 % (0.9-2.9) H 02/09/24 04:49 Baso % (Auto) 0.8 % (0.2-1.0) 02/09/24 04:49 Neut # (Auto) 5.2 x10^3/uL (2.2-4.8) H 02/09/24 04:49 Lymph # (Auto) 0.8 X10^3/uL (1.3-2.9) L 02/09/24 04:49 [place] # (Auto) 0.5 x10^3/uL (0.3-0.8) 02/09/24 04:49 Eos # (Auto) 0.4 x10^3/uL (0.0-0.2) H 02/09/24 04:49 Baso # (Auto) 0.1 X10^3/uL (0.0-0.1) 02/09/24 04:49 Absolute Nucleated RBC 0.0 /100WBC 02/09/24 04:49 PT 15.3 SECONDS (11.8-14.3) 02/06/24 22:34 INR Target Range - 02/06/24 22:34 INR 1.23 (0.8-1.3) 02/06/24 22:34 APTT 32.5 SECONDS (22.9-36.5) 02/06/24 22:34 PTT Comment - 02/06/24 22:34 D-Dimer 1.25 ug/ml (0.0-0.57) H 02/06/24 22:34 Sample Site R bra 02/07/24 00:18 ABG pH 7.450 (7.35-7.45) 02/07/24 00:18 ABG pCO2 59.0 mmHg (35.0-45.0) H* 02/07/24 00:18 ABG pO2 52.0 mmHg (80.0-100.0) L 02/07/24 00:18 ABG HCO3 41.0 mmol/L (22-26) H* 02/07/24 00:18 ABG O2 Saturation 88.0 % (90-100) L 02/07/24 00:18 ABG Base Excess 14.4 mmol/L (-2.0-2.0) H 02/07/24 00:18 Rodriguez Test N/a 02/07/24 00:18 A-a Gradient 102.0 mmHg 02/07/24 00:18 FiO2 32.0 02/07/24 00:18 Blood 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 02/07/24 00:18 Sodium 144 mmol/L (136-145) 02/09/24 04:49 Corrected Sodium 144 mmol/L (136-145) 02/09/24 04:49 Potassium 4.4 mmol/L (3.5-5.1) 02/09/24 04:49 Chloride 102 mmol/L (98-107) 02/09/24 04:49 Carbon Dioxide 41.0 mmol/L (21-32) H 02/09/24 04:49 BUN 14 mg/dL (7-18) 02/09/24 04:49 Creatinine 0.92 mg/dL (0.70-1.30) 02/09/24 04:49 Est GFR (MDRD) Af Amer > 60 (>60) 02/09/24 04:49 Est GFR (MDRD) Non-Af > 60 (>60) 02/09/24 04:49 Glucose 112 mg/dL (65-99) H 02/09/24 04:49 Calcium 9.3 mg/dL (8.5-10.1) 02/09/24 04:49 Corrected Calcium 9.9 mg/dL (8.5-10.1) 02/09/24 04:49 Magnesium 2.1 mg/dL (2.0-2.9) 02/09/24 04:49 Total Bilirubin 0.50 mg/dL (0.2-1.0) 02/09/24 04:49 AST 50 Units/L (15-37) H 02/09/24 04:49 ALT 57 Units/L (12-78) 02/09/24 04:49 Alkaline Phosphatase 116 Units/L (46-116) 02/09/24 04:49 Creatine Kinase 67 Units/L (39-308) 02/06/24 22:34 Troponin I High Sens 17.3 ng/L (4.0-60.0) 02/06/24 22:34 B-Natriuretic Peptide 798 pg/mL (0-79) H 02/06/24 22:34 Total Protein 7.3 g/dL (6.4-8.2) 02/09/24 04:49 Albumin 3.2 g/dL (3.4-5.0) L 02/09/24 04:49 Globulin 4.1 g/dL (2.5-4.5) 02/09/24 04:49 Albumin/Globulin Ratio 0.8 Ratio (1.1-2.1) L 02/09/24 04:49 TSH 3rd Generation 1.942 uIU/mL (0.358-3.74) 02/07/24 04:18 Digoxin 0.48 ng/mL (0.9-2) L 02/06/24 22:34 SARS CoV-2 RNA Rapid SANAM Negative (NEGATIVE) 02/06/24 22:34 Plan (1) CHF exacerbation: Status: Acute Qualifiers: Heart failure type: unspecified Qualified Code(s): I50.9 - Heart failure, unspecified (2) Atrial fibrillation with RVR: Status: Acute (3) Pleural effusion, right: Status: Acute (4) Right lower lobe lung mass: Status: Chronic (5) CAD (coronary artery disease): Status: Chronic Qualifiers: Coronary Disease-Associated Artery/Lesion type: [place] artery [place] vs. transplanted heart: [place] heart Associated angina: without angina Qualified Code(s): I25.10 - Atherosclerotic heart disease of [place] coronary artery without angina pectoris (6) S/P TAVR (transcatheter aortic valve replacement): Status: Chronic
[2024-02-10] MEDS ORDERED: XOPENEX 1.25 MG/3 ML NEBULE NEB ONE (02:54)
[2024-02-10 05:40] LABS: BASOPHILS % (AUTO) 0.8 % (0.2-1.0); EOSINOPHILS # (AUTO) 0.4 x10^3/uL (0.0-0.2); EOSINOPHILS % (AUTO) 6.1 % (0.9-2.9); HEMATOCRIT 25.8 % (42.0-54.0); LYMPHOCYTES # (AUTO) 0.7 X10^3/uL (1.3-2.9); LYMPHOCYTES % (AUTO) 11.1 % (21.0-51.0); MEAN CORPUSCULAR HEMOGLOBIN 30.8 pg (27.0-34.0); MEAN CORPUSCULAR HGB CONC 35.1 g/dL (33.0-35.0); MEAN CORPUSCULAR VOLUME 87.8 fL (80.0-100.0); MEAN PLATELET VOLUME 8.4 fL (7.4-11.0); MONOCYTES # (AUTO) 0.5 x10^3/uL (0.3-0.8); MONOCYTES % (AUTO) 8.3 % (0.0-13.0); NEUTROPHILS # (AUTO) 4.8 x10^3/uL (2.2-4.8); NEUTROPHILS % (AUTO) 73.7 % (42.0-75.0); PLATELET COUNT 124 X10^3/uL (150.0-450.0); RED BLOOD COUNT 2.93 X10^6/uL (4.7-6.0); RED CELL DISTRIBUTION WIDTH 16.4 % (11.6-16.5); WHITE BLOOD COUNT 6.5 X10^3/uL (3.6-10.0)
[2024-02-10 05:56] LABS: ALANINE AMINOTRANSFERASE 69 Units/L (12-78); ALKALINE PHOSPHATASE 117 Units/L (46-116); ASPARTATE AMINO TRANSFERASE 53 Units/L (15-37); BLOOD UREA NITROGEN 13 mg/dL (7-18); CALCIUM 9.4 mg/dL (8.5-10.1); CARBON DIOXIDE 38.6 mmol/L (21-32); CHLORIDE 102 mmol/L (98-107); COR CA(FOR HYPOALB) 10.2 mg/dL (8.5-10.1); CREATININE 0.88 mg/dL (0.70-1.30); GLUCOSE 99 mg/dL (65-99); POTASSIUM 4.4 mmol/L (3.5-5.1); SODIUM 142 mmol/L (136-145); TOTAL PROTEIN 7.2 g/dL (6.4-8.2); eGFR NON BLACK RACES > 60 (>60)
--- NOTE | 2024-02-10 06:46 | RAD ---
EXAM: Portable AP chest HISTORY: CHF right pleural effusion COMPARISON: 02/08/2024 FINDINGS: Stable cardiomegaly. Persistent pleural-parenchymal opacity at the right base with elevated diaphra gm as before. The left lung remains clear. IMPRESSION: Similar extent and distribution of findings at the right base consistent with pleural effusion and i nflammatory infiltrate/atelectasis. THIS IS AN ELECTRONICALLY VERIFIED FINAL REPORT 02/10/2024 6:43 AM - Electronically signed by Sandro Wilder MD
[2024-02-10] MEDS: COREG TAB 12.5 MG PO SCH (08:14)
[2024-02-10] MEDS ORDERED: XOPENEX 1.25 MG/3 ML NEBULE NEB PRN (15:31)
[2024-02-10] MEDS ORDERED: XOPENEX 1.25 MG/3 ML NEBULE NEB SCH ×2 (17:00→18:00)
[2024-02-11 05:40] LABS: BASOPHILS # (AUTO) 0.1 X10^3/uL (0.0-0.1); BASOPHILS % (AUTO) 0.9 % (0.2-1.0); EOSINOPHILS # (AUTO) 0.4 x10^3/uL (0.0-0.2); EOSINOPHILS % (AUTO) 5.5 % (0.9-2.9); HEMATOCRIT 26.4 % (42.0-54.0); HEMOGLOBIN 9.1 g/dL (13.5-18.0); LYMPHOCYTES # (AUTO) 0.7 X10^3/uL (1.3-2.9); LYMPHOCYTES % (AUTO) 10.5 % (21.0-51.0); MEAN CORPUSCULAR HEMOGLOBIN 30.3 pg (27.0-34.0); MEAN CORPUSCULAR HGB CONC 34.4 g/dL (33.0-35.0); MEAN CORPUSCULAR VOLUME 87.9 fL (80.0-100.0); MEAN PLATELET VOLUME 8.7 fL (7.4-11.0); MONOCYTES # (AUTO) 0.7 x10^3/uL (0.3-0.8); MONOCYTES % (AUTO) 10.6 % (0.0-13.0); NEUTROPHILS # (AUTO) 4.7 x10^3/uL (2.2-4.8); NEUTROPHILS % (AUTO) 72.5 % (42.0-75.0); PLATELET COUNT 113 X10^3/uL (150.0-450.0); RED CELL DISTRIBUTION WIDTH 16.4 % (11.6-16.5); WHITE BLOOD COUNT 6.5 X10^3/uL (3.6-10.0)
[2024-02-11 05:43] LABS: ALANINE AMINOTRANSFERASE 73 Units/L (12-78); ALKALINE PHOSPHATASE 116 Units/L (46-116); ASPARTATE AMINO TRANSFERASE 56 Units/L (15-37); BLOOD UREA NITROGEN 15 mg/dL (7-18); CALCIUM 9.4 mg/dL (8.5-10.1); CARBON DIOXIDE 37.6 mmol/L (21-32); CHLORIDE 102 mmol/L (98-107); COR CA(FOR HYPOALB) 10.2 mg/dL (8.5-10.1); CREATININE 0.89 mg/dL (0.70-1.30); GLUCOSE 92 mg/dL (65-99); POTASSIUM 4.2 mmol/L (3.5-5.1); SODIUM 142 mmol/L (136-145); TOTAL PROTEIN 7.1 g/dL (6.4-8.2); eGFR NON BLACK RACES > 60 (>60)
[2024-02-11] MEDS: NS 250 ML IV 250 ML IV ONE (09:23)
[2024-02-12 04:13] VITALS: TEMP 98
[2024-02-12 04:58] LABS: BASOPHILS # (AUTO) 0.1 X10^3/uL (0.0-0.1); BASOPHILS % (AUTO) 0.9 % (0.2-1.0); EOSINOPHILS # (AUTO) 0.3 x10^3/uL (0.0-0.2); EOSINOPHILS % (AUTO) 5.5 % (0.9-2.9); HEMOGLOBIN 8.8 g/dL (13.5-18.0); LYMPHOCYTES # (AUTO) 0.8 X10^3/uL (1.3-2.9); LYMPHOCYTES % (AUTO) 13.1 % (21.0-51.0); MEAN CORPUSCULAR HEMOGLOBIN 30.4 pg (27.0-34.0); MEAN CORPUSCULAR HGB CONC 35.1 g/dL (33.0-35.0); MEAN CORPUSCULAR VOLUME 86.7 fL (80.0-100.0); MEAN PLATELET VOLUME 8.5 fL (7.4-11.0); MONOCYTES # (AUTO) 0.6 x10^3/uL (0.3-0.8); MONOCYTES % (AUTO) 10.6 % (0.0-13.0); NEUTROPHILS # (AUTO) 4.2 x10^3/uL (2.2-4.8); NEUTROPHILS % (AUTO) 69.9 % (42.0-75.0); PLATELET COUNT 111 X10^3/uL (150.0-450.0); RED BLOOD COUNT 2.89 X10^6/uL (4.7-6.0); RED CELL DISTRIBUTION WIDTH 16.5 % (11.6-16.5)
[2024-02-12 05:13] LABS: ALANINE AMINOTRANSFERASE 76 Units/L (12-78); ALBUMIN 2.9 g/dL (3.4-5.0); ALKALINE PHOSPHATASE 120 Units/L (46-116); ASPARTATE AMINO TRANSFERASE 52 Units/L (15-37); BLOOD UREA NITROGEN 17 mg/dL (7-18); CALCIUM 9.2 mg/dL (8.5-10.1); CARBON DIOXIDE 39.6 mmol/L (21-32); CHLORIDE 102 mmol/L (98-107); COR CA(FOR HYPOALB) 10.1 mg/dL (8.5-10.1); CREATININE 0.95 mg/dL (0.70-1.30); DIGOXIN 0.62 ng/mL (0.9-2); GLUCOSE 84 mg/dL (65-99); SODIUM 141 mmol/L (136-145); TOTAL PROTEIN 6.9 g/dL (6.4-8.2); eGFR NON BLACK RACES > 60 (>60)
[2024-02-12 05:23] VITALS: O2SAT 100
[2024-02-12] MEDS: BYFAVO INJ IVP ONE (08:32)
[2024-02-12 09:06] VITALS: PULSE 74
[2024-02-12] MEDS: CORDARONE TAB 200 MG PO SCH (09:55)
--- NOTE | 2024-02-12 10:08 | CARDIOVERT ---
Cardioversion Note Date of Procedure: Date: 02/12/24 Note Cardioversion note: precardioversion dx: atrial fib post cardioversion dx: nsr anesthesia: per anesthesia procedure: consent obtained. anesthesia per anesthesia. patient has been on amiodorone and Doac for 5 days now- atrial fib was no doubt contributing to chf thus we proceeded with cardioversion after CIRILO showed no contraindication. 300J of synchronous electricity wa sgiven converting to NSR. patient tolerated procedure well- talking , moving all 4 post. Impression: successful CV to nsr paaln: cont doac, amio load at 200 bid for 3 weeks then qd- stop digoxin as on amio- cont bb/change to po meghna Mckeon Md is his normal metals analyst to f/u with.
[2024-02-12] MEDS ORDERED: LASIX ONE (10:10)
[2024-02-12] MEDS: LASIX PO SCH (10:20)
[2024-02-12 12:33] VITALS: BP 131/57; RESP 23
== END 2024-02-12 13:25 | disposition home or self-care (01) | DRG 292 ==
LOC: ER 22:11 → ICU 02-07 01:07
PROVIDERS: ADMIT Family Medicine; ATTEND Family Medicine
DX: I50.9 Heart failure, unspecified; R79.1 Abnormal coagulation profile; R91.8 Other nonspecific abnormal finding of lung field; R53.1 Weakness; I48.91 Unspecified atrial fibrillation; E83.42 Hypomagnesemia; C79.89 Secondary malignant neoplasm of other specified sites; C34.90 Malignant neoplasm of unspecified part of unspecified bronchus or lung; R06.02 Shortness of breath; Z65.8 Other specified problems related to psychosocial circumstances; Z95.2 Presence of prosthetic heart valve; Z20.822 Contact with and (suspected) exposure to COVID-19; J90 Pleural effusion, not elsewhere classified; R26.89 Other abnormalities of gait and mobility; J96.11 Chronic respiratory failure with hypoxia; Z99.81 Dependence on supplemental oxygen; I25.10 Atherosclerotic heart disease of native coronary artery without angina pectoris; R94.31 Abnormal electrocardiogram [ECG] [EKG]; E87.6 Hypokalemia; E87.0 Hyperosmolality and hypernatremia; I11.0 Hypertensive heart disease with heart failure

== ENCOUNTER 2024-03-25 11:05 | Inpatient (IN) ==
[2024-03-25] MEDS: DUONEB 0.5 MG/3 MG (3 mL) NEB ONE (11:45)
[2024-03-25 11:49] LABS: ABG BASE EXCESS 19.7 mmol/L (-2.0-2.0)
[2024-03-25 11:50] LABS: ABG ALLEN TEST POS; ABG HCO3 49.7 mmol/L (22-26)
--- NOTE | 2024-03-25 11:50 | EKG ---
Test Reason : weakness, hypoxia Blood Pressure : */* mmHG Vent. Rate : 72 BPM Atrial Rate : * BPM P-R Int : * ms QRS Dur : 138 ms QT Int : 464 ms P-R-T Axes : * -62 56 degrees QTc Int : 508 ms Atrial fibrillation Right bundle branch block Left anterior fascicular block Bifascicular block Inferior infarct (cited on or before 06-FEB-2024) Abnormal ECG When compared with ECG of 10-MAR-2024 23:37, Left anterior fascicular block is now present Confirmed by Joshua Andujar MD ([id number]) on 03/25/2024 12:10:09 PM Referred By: Confirmed By: Joshua Andujar MD
[2024-03-25 12:04] LABS: BASOPHILS % (AUTO) 0.8 % (0.2-1.0); EOSINOPHILS % (AUTO) 0.1 % (0.9-2.9); HEMATOCRIT 23.1 % (42.0-54.0); HEMOGLOBIN 7.8 g/dL (13.5-18.0); LYMPHOCYTES # (AUTO) 0.1 X10^3/uL (1.3-2.9); LYMPHOCYTES % (AUTO) 2.2 % (21.0-51.0); MEAN CORPUSCULAR HEMOGLOBIN 30.7 pg (27.0-34.0); MEAN CORPUSCULAR HGB CONC 33.8 g/dL (33.0-35.0); MEAN CORPUSCULAR VOLUME 90.7 fL (80.0-100.0); MONOCYTES # (AUTO) 0.2 x10^3/uL (0.3-0.8); MONOCYTES % (AUTO) 3.2 % (0.0-13.0); NEUTROPHILS # (AUTO) 5.1 x10^3/uL (2.2-4.8); NEUTROPHILS % (AUTO) 93.7 % (42.0-75.0); PLATELET COUNT 149 X10^3/uL (150.0-450.0); RED BLOOD COUNT 2.54 X10^6/uL (4.7-6.0); RED CELL DISTRIBUTION WIDTH 15.9 % (11.6-16.5); WHITE BLOOD COUNT 5.4 X10^3/uL (3.6-10.0)
[2024-03-25 12:10] LABS: ALANINE AMINOTRANSFERASE 28 Units/L (12-78); ALKALINE PHOSPHATASE 105 Units/L (46-116); ASPARTATE AMINO TRANSFERASE 22 Units/L (15-37); BLOOD UREA NITROGEN 22 mg/dL (7-18); CALCIUM 9.2 mg/dL (8.5-10.1); CHLORIDE 100 mmol/L (98-107); COR NA(FOR HYPERGLY) 148 mmol/L (136-145); CREATININE 1.44 mg/dL (0.70-1.30); GLUCOSE 174 mg/dL (65-99); POTASSIUM 3.6 mmol/L (3.5-5.1); SODIUM 146 mmol/L (136-145); TOTAL PROTEIN 6.9 g/dL (6.4-8.2); eGFR NON BLACK RACES 51 (>60)
[2024-03-25 12:13] LABS: CARBON DIOXIDE > 45.0 mmol/L (21-32)
[2024-03-25 12:18] LABS: PLATELET MORPHOLOGY COMMENT NORMAL (NORMAL)
[2024-03-25 12:23] LABS: BILIRUBIN,URINE NEGATIVE (NEGATIVE); BLOOD/HEMOGLOBIN,URINE 2+ (NEGATIVE); GLUCOSE, URINE NEGATIVE (NEGATIVE); KETONES,URINE NEGATIVE (NEGATIVE); LEUKOCYTE ESTERASE ,URINE NEGATIVE (NEGATIVE); NITRITES,URINE NEGATIVE (NEGATIVE); PROTEIN,URINE 3+ (NEGATIVE); UROBILINOGEN,URINE 1+ (NORMAL)
[2024-03-25 12:33] LABS: APPEARANCE,URINE SLIGHTLY HAZY (CLEAR); COLOR,URINE YELLOW (YELLOW)
[2024-03-25 12:34] LABS: BACTERIA,URINE TRACE /HPF (NEGATIVE); HYALINE CASTS, URINE MANY /LPF (NEGATIVE); SQUAMOUS EPITHELIAL CELL,UR FEW /HPF (NEGATIVE); TRANSITIONAL EPI CELLS,URINE FEW /HPF (NEGATIVE)
--- NOTE | 2024-03-25 13:14 | RAD ---
EXAM: CHEST, 1 VIEW HISTORY: SOB; COMPARISON: 03/11/2024 FINDINGS: Elevated right hemidiaphragm is present. Abnormal opacity in the lower right lung correlates with th e abnormal findings on CTA chest 02/29/2024. There may be minimal opacity in the left lung which was not present previously. This could be pneumo nathaly Heart size is magnified because of technique. Atherosclerotic calcifications are present in the aorta . The bones are unremarkable. Median sternotomy fixation hardware is present. EKG leads are noted. IMPRESSION: 1. Possible new left lung pneumonia THIS IS AN ELECTRONICALLY VERIFIED FINAL REPORT 03/25/2024 1:11 PM - Electronically signed by Pepe Lawrence MD
[2024-03-25 13:26] LABS: ABG BASE EXCESS 23.4 mmol/L (-2.0-2.0)
[2024-03-25 13:27] LABS: ABG ALLEN TEST POS; ABG HCO3 52.4 mmol/L (22-26)
--- NOTE | 2024-03-25 15:30 | DR.UPM ---
HPI Time Seen Time Seen by Provider: 03/25/24 15:30 PCP Primary Care Physician: Jni HPI Comment HPI Comment: Patient with history of lung cancer, CHF, coronary disease recent GI bleed and pneumonia few weeks ago comes into the ER with worsening shortness of breath for the last couple of days. Complaint Chief Complaint:: states that for the past couple of days the patient has been short of breath and states that he is unable to void. She states that when he does go that it is very little. Patient is on home o2 and usually wears 3 liters. In triage he is on 4 liters and his oxygen saturation is 77%. states that the patient has been weak and out of energy since . He was seen in this ER around that time and discharged. She states that he has just gotten worse since then. also reports that the patient has had some congestion and has been coughing. She denies any fever. COVID-19 Coronavirus risk:travel/contact w/high risk person: No Has patient experienced Coronavirus symptoms: No Coronavirus symptoms experienced: Shortness of Breath Source History Provided: Patient Mode of Arrival Mode of Arrival: Wheelchair Timing Onset of Chief Complaint: 03/22/24 PMH PMH Past Medical History: Yes Past Medical History: Diabetes, Hypertension and Cancer Past Medical History Comment: Lung cancer Past Surgical History: Yes Surgical History: AAA Repair, Angioplasty/Stents, Appendectomy and CABG/Valve Surgery Family History History of Family Medical Conditions: Yes Family Medical History: Diabetes Mellitus and Cancer Social History Does patient currently use any type of tobacco product: No Have you used tobacco products in the last 12 months: No Type of Tobacco Use: None Does any household member use tobacco: No Alcohol Use: None Do you use any recreational Drugs:: No Lives With: Family Lives Where: Home Travel Risk Coronavirus risk:travel/contact w/high risk person: No Has patient experienced Coronavirus symptoms: No Coronavirus symptoms experienced: Shortness of Breath Infectious screening In the last 2 months have you had wt loss of >10#?: NO Have you had fever, night sweats or hemotysis?: No Have you traveled outside the country in the last 6 months?: No Isolation: Standard ROS Review of Systems Constitutional: See HPI, Weakness and Fatigue Eyes: No Symptoms Reported ENTM: No Symptoms Reported Respiratoy: See HPI, Non-Productive Cough and Short of Breath Cardiovascular: No Symptoms Reported Gastrointestinal/Abdominal: No Symptoms Reported Genitourinary: No Symptoms Reported Neurological: No Symptoms Reported Musculoskeletal: No Symptoms Reported Integumentary: No Symptoms Reported Hematologic/Lymphatic: No Symptoms Reported Endocrine: No Symptoms Reported Psychiatric: No Symptoms Reported All Other Systems: Reviewed and Negative PE Vital Signs Vitals: Vital Signs Temperature 95.5 F Pulse Rate 82 Pulse Rate 88 Pulse Rate 87 Pulse Rate 75 Pulse Rate 78 Pulse Rate 81 Pulse Rate 76 Pulse Rate 86 Pulse Rate 75 Pulse Rate 76 Pulse Rate 69 Pulse Rate 76 Pulse Rate 75 Pulse Rate 77 Pulse Rate 67 Pulse Rate 70 Pulse Rate 72 Pulse Rate 92 Pulse Rate 102 Pulse Rate 97 Pulse Rate 60 Respiratory Rate 32 Respiratory Rate 29 Respiratory Rate 27 Respiratory Rate 38 Respiratory Rate 20 Respiratory Rate 18 Respiratory Rate 19 Respiratory Rate 21 Respiratory Rate 21 Respiratory Rate 19 Respiratory Rate 20 Respiratory Rate 20 Respiratory Rate 22 Respiratory Rate 17 Respiratory Rate 20 Respiratory Rate 25 Respiratory Rate 26 Respiratory Rate 30 Respiratory Rate 32 Respiratory Rate 23 Blood Pressure 103/54 Blood Pressure 99/60 Blood Pressure 107/58 O2 Sat by Pulse Oximetry 99 O2 Sat by Pulse Oximetry 99 O2 Sat by Pulse Oximetry 99 O2 Sat by Pulse Oximetry 100 O2 Sat by Pulse Oximetry 99 O2 Sat by Pulse Oximetry 100 O2 Sat by Pulse Oximetry 100 O2 Sat by Pulse Oximetry 99 O2 Sat by Pulse Oximetry 99 O2 Sat by Pulse Oximetry 100 O2 Sat by Pulse Oximetry 100 O2 Sat by Pulse Oximetry 100 O2 Sat by Pulse Oximetry 100 O2 Sat by Pulse Oximetry 100 O2 Sat by Pulse Oximetry 100 O2 Sat by Pulse Oximetry 100 O2 Sat by Pulse Oximetry 97 O2 Sat by Pulse Oximetry 94 O2 Sat by Pulse Oximetry 96 O2 Sat by Pulse Oximetry 77 General Limitations: No Limitations General Appearance: Lethargic Head Head Exam: Normal Inspection Eyes Eye exam: Normal Appearance ENT ENT Exam: Normal Exam Neck Neck Exam: Normal Inspection Chest Chest Inspection: Normal Inspection Respiratory Respiratory Exam: Other (Diminished breath sounds in the bases.) Respiratory Exam: Bilateral: Wheezing, Bilateral: Crackles and Bilateral: Decreased Breath Sounds Cardiovascular Cardiovascular Exam: Regular Rate and Normal Rhythm Abdominal Exam Abdominal Exam: Normal Inspection, Normal Bowel Sounds and Soft Rectal Rectal Exam: Deferred Genitourinary Exam: Male: Deferred Extremities Extremities Exam: Normal Inspection Back Back Exam: Normal Inspection Neurologic Neurological Exam: Alert and Oriented X3 Psychiatric Psychiatric Exam: Normal Affect and Normal Mood Skin Skin Exam: Warm, Dry, Intact and Normal Color COURSE Treatment Treatment: Had extensive discussion with patient and family regarding patient's condition, labs and imaging finding. Patient has a little confused and lethargic, however him and family are agreeable to make patient DNR since his prognosis is not very good at this time given his condition and advanced age. They state they will discuss with hospitalist or primary care different options for possible hospice. The patient's son states that oncology is not very opti mistic and may not continue treatment for lung cancer at this point. Consultation Called: 16:35 Consultation Comments: Discussed case with Dr. Ramsay. She is agreeable to admission. Discussed labs and imaging findings. [facility] Labs Reviewed 03/25/24 11:40 03/25/24 11:40 Laboratory: WBC 5.4 X10^3/uL (3.6-10.0) 03/25/24 11:40 RBC 2.54 X10^6/uL (4.7-6.0) L 03/25/24 11:40 Hgb 7.8 g/dL (13.5-18.0) L 03/25/24 11:40 Hct 23.1 % (42.0-54.0) L 03/25/24 11:40 MCV 90.7 fL (80.0-100.0) 03/25/24 11:40 MCH 30.7 pg (27.0-34.0) 03/25/24 11:40 MCHC 33.8 g/dL (33.0-35.0) 03/25/24 11:40 RDW 15.9 % (11.6-16.5) 03/25/24 11:40 Plt Count 149 X10^3/uL (150.0-450.0) L 03/25/24 11:40 Plt Count Comment Adequate (ADEQUATE) 03/25/24 11:40 MPV 8.0 fL (7.4-11.0) 03/25/24 11:40 Neut % (Auto) 93.7 % (42.0-75.0) H 03/25/24 11:40 Lymph % (Auto) 2.2 % (21.0-51.0) L 03/25/24 11:40 [place] % (Auto) 3.2 % (0.0-13.0) 03/25/24 11:40 Eos % (Auto) 0.1 % (0.9-2.9) L 03/25/24 11:40 Baso % (Auto) 0.8 % (0.2-1.0) 03/25/24 11:40 Neut # (Auto) 5.1 x10^3/uL (2.2-4.8) H 03/25/24 11:40 Lymph # (Auto) 0.1 X10^3/uL (1.3-2.9) L 03/25/24 11:40 [place] # (Auto) 0.2 x10^3/uL (0.3-0.8) L 03/25/24 11:40 Eos # (Auto) 0.0 x10^3/uL (0.0-0.2) 03/25/24 11:40 Baso # (Auto) 0.0 X10^3/uL (0.0-0.1) 03/25/24 11:40 Absolute Nucleated RBC 0.0 /100WBC 03/25/24 11:40 Total Counted 100 03/25/24 11:40 Neutrophils % (Manual) 96 % (39-76) H 03/25/24 11:40 Lymphocytes % (Manual) 4 % (13-43) L 03/25/24 11:40 Plt Morphology Comment Normal (NORMAL) 03/25/24 11:40 RBC Morphology Normal (NORMAL) 03/25/24 11:40 Sample Site Lrad 03/25/24 13:20 ABG pH 7.430 (7.35-7.45) 03/25/24 13:20 ABG pCO2 79.0 mmHg (35.0-45.0) H* 03/25/24 13:20 ABG pO2 82.0 mmHg (80.0-100.0) 03/25/24 13:20 ABG HCO3 52.4 mmol/L (22-26) H* 03/25/24 13:20 ABG O2 Saturation 96.0 % (90-100) 03/25/24 13:20 ABG Base Excess 23.4 mmol/L (-2.0-2.0) H 03/25/24 13:20 Rodriguez Test Pos 03/25/24 13:20 A-a Gradient 104.0 mmHg 03/25/24 13:20 FiO2 40.0 03/25/24 13:20 Blood Gas Comments Pt amairani well elj kg 03/25/24 13:20 Sodium 146 mmol/L (136-145) H 03/25/24 11:40 Corrected Sodium 148 mmol/L (136-145) H 03/25/24 11:40 Potassium 3.6 mmol/L (3.5-5.1) 03/25/24 11:40 Chloride 100 mmol/L (98-107) 03/25/24 11:40 Carbon Dioxide > 45.0 mmol/L (21-32) H* 03/25/24 11:40 BUN 22 mg/dL (7-18) H 03/25/24 11:40 Creatinine 1.44 mg/dL (0.70-1.30) H 03/25/24 11:40 Est GFR (MDRD) Af Amer > 60 (>60) 03/25/24 11:40 Est GFR (MDRD) Non-Af 51 (>60) L 03/25/24 11:40 Glucose 174 mg/dL (65-99) H 03/25/24 11:40 Lactic Acid 1.8 mmol/L (0.4-2.0) 03/25/24 11:40 Calcium 9.2 mg/dL (8.5-10.1) 03/25/24 11:40 Corrected Calcium 10.0 mg/dL (8.5-10.1) 03/25/24 11:40 Total Bilirubin 0.50 mg/dL (0.2-1.0) 03/25/24 11:40 AST 22 Units/L (15-37) 03/25/24 11:40 ALT 28 Units/L (12-78) 03/25/24 11:40 Alkaline Phosphatase 105 Units/L (46-116) 03/25/24 11:40 Troponin I High Sens 43.2 ng/L (4.0-60.0) 03/25/24 11:40 B-Natriuretic Peptide 675 pg/mL (0-79) H 03/25/24 11:40 Total Protein 6.9 g/dL (6.4-8.2) 03/25/24 11:40 Albumin 3.0 g/dL (3.4-5.0) L 03/25/24 11:40 Globulin 3.9 g/dL (2.5-4.5) 03/25/24 11:40 Albumin/Globulin Ratio 0.8 Ratio (1.1-2.1) L 03/25/24 11:40 Specimen Type Catherized urine 03/25/24 12:16 Urine Color Yellow (YELLOW) 03/25/24 12:16 Urine Appearance Slightly hazy (CLEAR) 03/25/24 12:16 Urine pH 5.0 (5.0 - 8.0) 03/25/24 12:16 Ur Specific [place] 1.025 (1.000-1.030) 03/25/24 12:16 Urine Protein 3+ (NEGATIVE) 03/25/24 12:16 Urine Glucose (UA) Negative (NEGATIVE) 03/25/24 12:16 Urine Ketones Negative (NEGATIVE) 03/25/24 12:16 Urine Blood 2+ (NEGATIVE) 03/25/24 12:16 Urine Nitrite Negative (NEGATIVE) 03/25/24 12:16 Urine Bilirubin Negative (NEGATIVE) 03/25/24 12:16 Urine Urobilinogen 1+ (NORMAL) 03/25/24 12:16 Ur Leukocyte Esterase Negative (NEGATIVE) 03/25/24 12:16 Urine RBC 3-5 /HPF (0-3) A 03/25/24 12:16 Urine WBC 0-2 /HPF (0-5) 03/25/24 12:16 Ur Squamous Epith Cells Few /HPF (NEGATIVE) 03/25/24 12:16 Ur Transition Epith Cell Few /HPF (NEGATIVE) 03/25/24 12:16 Urine Bacteria Trace /HPF (NEGATIVE) 03/25/24 12:16 Hyaline Casts Many /LPF (NEGATIVE) 03/25/24 12:16 Ur Culture Indicated? No/not indicated 03/25/24 12:16 SARS-CoV-2 (PCR) Negative (NEGATIVE) 03/25/24 11:37 Influenza Type A (PCR) Negative (NEGATIVE) 03/25/24 11:37 Influenza Type B (PCR) Negative (NEGATIVE) 03/25/24 11:37 RSV (PCR) Negative (NEGATIVE) 03/25/24 11:37 Opioid Opioid Risk Tool Age (Noel box if 16-45): No History of Preadolescent Sexual Abuse: No Total: 0 Total Score Risk Category: Low Risk Copyright: [facility] predicting aberrant behaviors Discharge Plan Diagnosis Discharge Problem: CHF exacerbation, Lung cancer, Respiratory failure with hypoxia, Anemia Pneumonia involving left lung Qualifiers: Lung location: lower lobe of lung Discharge Plan Patient Disposition: 09 ADMITTED INPATIENT Condition: Stable Prescriptions: No Action ipratropium-albuterol 0.5 mg-3 mg(2.5 mg base)/3 mL solution for nebulization 3 ml inhalation Q4-6H PRN (Reason: wheezing) Qty: 180 3RF carvedilol 25 mg tablet 25 mg PO BID 30 Days Qty: 60 1RF Rx Instructions: must administer with a meal/food gabapentin 300 mg capsule 300 mg PO QDAY 30 Days Qty: 30 0RF lisinopril 40 mg tablet 40 mg PO QDAY 30 Days Qty: 30 0RF magnesium oxide 400 mg magnesium capsule 400 mg PO QDAY 30 Days Qty: 30 0RF rosuvastatin 40 mg tablet 40 mg PO QDAY 30 Days Qty: 30 0RF albuterol sulfate 90 mcg/actuation HFA aerosol inhaler 1 inh inhalation ONCE PRN (Reason: shortness of breath or wheezing) Qty: 6.7 0RF amlodipine 10 mg tablet 10 mg PO QDAY 30 Days Qty: 30 0RF calcium carbonate [Calcium 600] 600 mg calcium (1,500 mg) tablet 600 mg PO QDAY 30 Days Qty: 30 0RF Artificial Tears (cmc) 1 % drops 1 drp ophthalmic (eye) QID PRN (Reason: dry eye(s)) Qty: 15 0RF cholecalciferol (vitamin D3) 50 mcg (2,000 unit) capsule 50 mcg PO QDAY 30 Days Qty: 30 0RF clopidogrel 75 mg tablet 75 mg PO QDAY 30 Days Qty: 30 0RF multivitamin Tablet 1 tab PO QDAY 30 Days Qty: 30 0RF potassium chloride 20 mEq tablet extended release 20 meq PO QDAY 30 Days Qty: 30 0RF Rx Instructions: 1/2 in the AM and 1/2 PM. vitamin B complex [Vitamins B Complex] Capsule 1 cap PO QDAY 30 Days Qty: 30 0RF Stiolto Respimat 2.5-2.5 mcg/actuation mist 2 puff inhalation QDAY Qty: 4 0RF omeprazole 40 mg Capsule,Delayed Release(Dr/Ec) 40 mg PO BID meclizine 25 mg Tablet 25 mg PO BID aspirin 81 mg Tablet 81 mg PO DAILY furosemide 40 mg Tablet 40 mg PO QDAY digoxin 125 mcg (0.125 mg) Tablet 125 mcg PO HS docusate sodium [Stool Softener] 100 mg capsule 100 mg PO BID MDD 2 Qty: 20 0RF magnesium hydroxide [Milk of Magnesia] 400 mg/5 mL suspension 15 ml PO BID PRNQty: 200 0RF Health Concerns: Post Hospitalization: new medications and changes needed to prevent readmission or further decline. Pt educated and given instructions on all concerns. Plan of Treatment: Continue with present treatment and follow up plan. Pt is to keep follow up appointment as instructed and take medications as ordered. Orders to Discharge Patient Discharge Orders: Transfer (Routine); Ordered 03/25/24 Ordered By: Franco Engel Follow ups/Referrals Follow ups/Referrals: MDMisc [Primary Care Provider] - 3 days Instructions Stand Alone Forms: Find Help Web Site, Post Hospital Follow Up Care
[2024-03-25] MEDS: ZOSYN VIAL 3.375 GRAMS 3.375 G in NS 100 ML IV 100 ML IV SCH (15:55)
[2024-03-25] MEDS ORDERED: ZOSYN VIAL 3.375 GRAMS 3.375 G in NS 100 ML IV 100 ML IV SCH (17:38)
[2024-03-25] MEDS ORDERED: PHARMACY CONSULT - VANCOMYCIN XX SCH (17:38)
[2024-03-25] MEDS ORDERED: ARTIFICIAL TEARS DROPS OP PRN (18:05)
[2024-03-25] MEDS ORDERED: NS 250 ML IV 250 ML IV ONE (18:26)
[2024-03-25] MEDS: VANCOMYCIN HCL 1 G in D5W 250 ML IV 250 ML IV ONE (18:32)
[2024-03-25] MEDS ORDERED: PULMICORT NEB TX 0.5 MG NEB ONE (19:58)
[2024-03-25] MEDS: DUONEB 0.5 MG/3 MG (3 mL) NEB SCH (20:14)
[2024-03-25] MEDS: PULMICORT NEB TX 0.5 MG NEB SCH (20:14)
[2024-03-25] MEDS ORDERED: ULTRAM PO PRN (21:14)
[2024-03-25] MEDS ORDERED: DILAUDID INJ IVP PRN (21:14)
[2024-03-25] MEDS: NORCO 5/325 MG TAB PO PRN (22:12)
[2024-03-25] MEDS: COLACE CAP 100 MG PO SCH (22:12)
[2024-03-25] MEDS: PriLOSEC PO SCH (22:12)
[2024-03-25] MEDS: HALDOL INJ IM ONE (22:14)
[2024-03-25] MEDS: LANOXIN or DIGITEK PO SCH (22:14)
[2024-03-26] MEDS: HALDOL INJ IM ONE ×3 (00:01→07:17)
[2024-03-26 05:10] LABS: BASOPHILS % (AUTO) 0.5 % (0.2-1.0); EOSINOPHILS # (AUTO) 0.1 x10^3/uL (0.0-0.2); EOSINOPHILS % (AUTO) 1.9 % (0.9-2.9); HEMOGLOBIN 7.5 g/dL (13.5-18.0); LYMPHOCYTES # (AUTO) 0.4 X10^3/uL (1.3-2.9); LYMPHOCYTES % (AUTO) 7.1 % (21.0-51.0); MEAN CORPUSCULAR HEMOGLOBIN 30.6 pg (27.0-34.0); MEAN CORPUSCULAR VOLUME 89.9 fL (80.0-100.0); MEAN PLATELET VOLUME 8.2 fL (7.4-11.0); MONOCYTES # (AUTO) 0.6 x10^3/uL (0.3-0.8); MONOCYTES % (AUTO) 10.3 % (0.0-13.0); NEUTROPHILS # (AUTO) 4.8 x10^3/uL (2.2-4.8); NEUTROPHILS % (AUTO) 80.2 % (42.0-75.0); PLATELET COUNT 127 X10^3/uL (150.0-450.0); RED BLOOD COUNT 2.45 X10^6/uL (4.7-6.0); RED CELL DISTRIBUTION WIDTH 15.9 % (11.6-16.5)
[2024-03-26 05:19] LABS: ALANINE AMINOTRANSFERASE 17 Units/L (12-78); ALBUMIN 2.4 g/dL (3.4-5.0); ALKALINE PHOSPHATASE 83 Units/L (46-116); ASPARTATE AMINO TRANSFERASE 19 Units/L (15-37); BLOOD UREA NITROGEN 21 mg/dL (7-18); CALCIUM 8.9 mg/dL (8.5-10.1); CHLORIDE 103 mmol/L (98-107); COR CA(FOR HYPOALB) 10.2 mg/dL (8.5-10.1); CREATININE 1.25 mg/dL (0.70-1.30); GLUCOSE 102 mg/dL (65-99); MAGNESIUM 1.3 mg/dL (2.0-2.9); SODIUM 147 mmol/L (136-145); TOTAL PROTEIN 5.6 g/dL (6.4-8.2); eGFR NON BLACK RACES 60 (>60)
[2024-03-26 05:25] LABS: CARBON DIOXIDE 44.1 mmol/L (21-32)
[2024-03-26] MEDS ORDERED: CONSULT PHARMACY - POTASSIUM & MAGNESIUM XX SCH (08:00)
[2024-03-26] MEDS: VANCOMYCIN HCL 1 G in D5W 250 ML IV 250 ML IV SCH (08:38)
[2024-03-26] MEDS ORDERED: NS 250 ML IV 250 ML IV ONE (08:40)
--- NOTE | 2024-03-26 09:01 | RAD ---
EXAM: CHEST, 1 VIEW HISTORY: PNEUMONIA ; COMPARISON: 03/25/2024 FINDINGS: The cardiomediastinal silhouette is stable. Similar post sternotomy changes. Similar bilateral airspace opacities. No pneumothorax or effusion. No acute osseous abnormality. IMPRESSION: Similar bilateral opacities without significant change. THIS IS AN ELECTRONICALLY VERIFIED FINAL REPORT 03/26/2024 8:58 AM - Electronically signed by Zev Murray MD
[2024-03-26] MEDS: CRESTOR TAB 10 MG PO SCH (09:24)
[2024-03-26] MEDS: NORVASC TAB 10 MG PO SCH (09:24)
[2024-03-26] MEDS: MAG-OX TAB PO SCH ×2 (09:24→14:11)
[2024-03-26] MEDS: NEURONTIN CAP 300 MG PO SCH (09:24)
[2024-03-26] MEDS: PLAVIX PO SCH (09:24)
--- NOTE | 2024-03-26 09:53 | DR.H&P ---
H&P History & Physical for Day of: H&P Date: 03/26/24 Chief Complaint Chief Complaint: sob, weakness History of Present Illness History of Present Illness: Mr Gage is a 78y/o male with a PMH of lung cancer s/p lobectomy, CAD s/p CABG, CHF, HTN, HLD, atrial fibrillation and anemia presented with worsening SOB and weakness. He was recently admitted in [place] for GI bleed, underwent EGD which showed ulcers. He has had recurrent admissions in the past 6 weeks. Denies any bleeding. He does wear 3L O2 at home. ER work up showed Hgb 7.8, Cr 1.44. CXR showed left pneumonia. He was started on IV antibiotics and bronchodilators. He was initially placed on the bipap due to hypercapnia and hypoxia. Overnight, he was more agitated and restless, given Haldol twice. He is more calm this morning. He is currently on 3L NC. Labs/imaging reviewed: -WBC 6 Hgb 7.5 Plt 127 K 3.0 BUN/Cr 21/1.25 Mag 1.3 BNP 675 Trop (-) -ABG 7.43/79/82/52.4 -CXR: left sided pneumonia Plan: Continue ICU care for closer monitoring, wean O2 as tolerated. BiPAP prn. Transfuse 2 units PRBCs. Monitor H&H. Continue IV antibiotics and broncho dilators. Follow pending cultures. Hold lasix and lisinopril, resume other home medications. Monitor BP. Replace K and mag as per protocol. Patient has had recurrent admission and seems to be declining in health due to malignancy. Family member present at bedside, updated treatment plan. Family is considering hospice as patient is not a candidate for any aggressive chemo/radiation. He was not able to tolerate chemo and did receive palliative radiation for a lesion in the trachea. Consult hospice to discuss further options. Patient is a DNR. Monitor AM labs/imaging. Time spent for clinical assessment, reviewing labs/imaging, physical exam, decision making and documentation greater than 45 mins. Past Medical History Past Medical History: Diabetes, Hypertension and Cancer Past Surgical History Surgical History: Angioplasty/Stents, Appendectomy, CABG/Valve Surgery, Ortho Surgery and Other Family History Family Medical History: Diabetes Mellitus, Cancer and Hypertension Social History Does patient currently use any type of tobacco product: No Have you used tobacco products in the last 12 months: No Type of Tobacco Use: None Does any household member use tobacco: No Alcohol Use: None Drug Use: None Medications Home Medications: Home Medications Medication Instructions Recorded Confirmed Type digoxin 125 mcg (0.125 mg) tablet 125 mcg PO HS 02/29/24 03/25/24 History furosemide 40 mg tablet 40 mg PO QDAY 02/29/24 03/25/24 History albuterol sulfate 90 mcg/actuation 2 puff inhalation PRN PRN 03/25/24 03/25/24 History aerosol inhaler amiodarone 200 mg tablet 200 mg PO BID 03/25/24 03/25/24 History apixaban 2.5 mg tablet (Eliquis) 2.5 mg PO BID 03/25/24 03/25/24 History metoprolol tartrate 50 mg tablet 50 mg PO BID 03/25/24 03/25/24 History pantoprazole 40 mg tablet,delayed 40 mg PO BID 03/25/24 03/25/24 History release Allergies Allergies Allergy/AdvReac Type Severity Reaction Status Date / Time warfarin [From Coumadin] AdvReac Intermediate gastric Verified 02/29/24 08:15 bleeding Labs 03/26/24 04:25 03/26/24 04:25 Labs: Laboratory WBC 6.0 X10^3/uL (3.6-10.0) 03/26/24 04:25 RBC 2.45 X10^6/uL (4.7-6.0) L 03/26/24 04:25 Hgb 7.5 g/dL (13.5-18.0) L 03/26/24 04:25 Hct 22.0 % (42.0-54.0) L 03/26/24 04:25 MCV 89.9 fL (80.0-100.0) 03/26/24 04:25 MCH 30.6 pg (27.0-34.0) 03/26/24 04:25 MCHC 34.0 g/dL (33.0-35.0) 03/26/24 04:25 RDW 15.9 % (11.6-16.5) 03/26/24 04:25 Plt Count 127 X10^3/uL (150.0-450.0) L 03/26/24 04:25 Plt Count Comment Adequate (ADEQUATE) 03/25/24 11:40 MPV 8.2 fL (7.4-11.0) 03/26/24 04:25 Neut % (Auto) 80.2 % (42.0-75.0) H 03/26/24 04:25 Lymph % (Auto) 7.1 % (21.0-51.0) L 03/26/24 04:25 [place] % (Auto) 10.3 % (0.0-13.0) 03/26/24 04:25 Eos % (Auto) 1.9 % (0.9-2.9) 03/26/24 04:25 Baso % (Auto) 0.5 % (0.2-1.0) 03/26/24 04:25 Neut # (Auto) 4.8 x10^3/uL (2.2-4.8) 03/26/24 04:25 Lymph # (Auto) 0.4 X10^3/uL (1.3-2.9) L 03/26/24 04:25 [place] # (Auto) 0.6 x10^3/uL (0.3-0.8) 03/26/24 04:25 Eos # (Auto) 0.1 x10^3/uL (0.0-0.2) 03/26/24 04:25 Baso # (Auto) 0.0 X10^3/uL (0.0-0.1) 03/26/24 04:25 Absolute Nucleated RBC 0.1 /100WBC 03/26/24 04:25 Total Counted 100 03/25/24 11:40 Neutrophils % (Manual) 96 % (39-76) H 03/25/24 11:40 Lymphocytes % (Manual) 4 % (13-43) L 03/25/24 11:40 Plt Morphology Comment Normal (NORMAL) 03/25/24 11:40 RBC Morphology Normal (NORMAL) 03/25/24 11:40 Sample Site Lrad 03/25/24 13:20 ABG pH 7.430 (7.35-7.45) 03/25/24 13:20 ABG pCO2 79.0 mmHg (35.0-45.0) H* 03/25/24 13:20 ABG pO2 82.0 mmHg (80.0-100.0) 03/25/24 13:20 ABG HCO3 52.4 mmol/L (22-26) H* 03/25/24 13:20 ABG O2 Saturation 96.0 % (90-100) 03/25/24 13:20 ABG Base Excess 23.4 mmol/L (-2.0-2.0) H 03/25/24 13:20 Rodriguez Test Pos 03/25/24 13:20 A-a Gradient 104.0 mmHg 03/25/24 13:20 FiO2 40.0 03/25/24 13:20 Blood Gas Comments Pt amairani well elj kg 03/25/24 13:20 Sodium 147 mmol/L (136-145) H 03/26/24 04:25 Corrected Sodium TNP 03/26/24 04:25 Potassium 3.0 mmol/L (3.5-5.1) L 03/26/24 04:25 Chloride 103 mmol/L (98-107) 03/26/24 04:25 Carbon Dioxide 44.1 mmol/L (21-32) H 03/26/24 04:25 BUN 21 mg/dL (7-18) H 03/26/24 04:25 Creatinine 1.25 mg/dL (0.70-1.30) 03/26/24 04:25 Est GFR (MDRD) Af Amer > 60 (>60) 03/26/24 04:25 Est GFR (MDRD) Non-Af 60 (>60) 03/26/24 04:25 Glucose 102 mg/dL (65-99) H 03/26/24 04:25 Lactic Acid 1.8 mmol/L (0.4-2.0) 03/25/24 11:40 Calcium 8.9 mg/dL (8.5-10.1) 03/26/24 04:25 Corrected Calcium 10.2 mg/dL (8.5-10.1) H 03/26/24 04:25 Magnesium 1.3 mg/dL (2.0-2.9) L 03/26/24 04:25 Total Bilirubin 0.50 mg/dL (0.2-1.0) 03/26/24 04:25 AST 19 Units/L (15-37) 03/26/24 04:25 ALT 17 Units/L (12-78) 03/26/24 04:25 Alkaline Phosphatase 83 Units/L (46-116) 03/26/24 04:25 Troponin I High Sens 43.2 ng/L (4.0-60.0) 03/25/24 11:40 B-Natriuretic Peptide 675 pg/mL (0-79) H 03/25/24 11:40 Total Protein 5.6 g/dL (6.4-8.2) L 03/26/24 04:25 Albumin 2.4 g/dL (3.4-5.0) L 03/26/24 04:25 Globulin 3.2 g/dL (2.5-4.5) 03/26/24 04:25 Albumin/Globulin Ratio 0.8 Ratio (1.1-2.1) L 03/26/24 04:25 Specimen Type Catherized urine 03/25/24 12:16 Urine Color Yellow (YELLOW) 03/25/24 12:16 Urine Appearance Slightly hazy (CLEAR) 03/25/24 12:16 Urine pH 5.0 (5.0 - 8.0) 03/25/24 12:16 Ur Specific [place] 1.025 (1.000-1.030) 03/25/24 12:16 Urine Protein 3+ (NEGATIVE) 03/25/24 12:16 Urine Glucose (UA) Negative (NEGATIVE) 03/25/24 12:16 Urine Ketones Negative (NEGATIVE) 03/25/24 12:16 Urine Blood 2+ (NEGATIVE) 03/25/24 12:16 Urine Nitrite Negative (NEGATIVE) 03/25/24 12:16 Urine Bilirubin Negative (NEGATIVE) 03/25/24 12:16 Urine Urobilinogen 1+ (NORMAL) 03/25/24 12:16 Ur Leukocyte Esterase Negative (NEGATIVE) 03/25/24 12:16 Urine RBC 3-5 /HPF (0-3) A 03/25/24 12:16 Urine WBC 0-2 /HPF (0-5) 03/25/24 12:16 Ur Squamous Epith Cells Few /HPF (NEGATIVE) 03/25/24 12:16 Ur Transition Epith Cell Few /HPF (NEGATIVE) 03/25/24 12:16 Urine Bacteria Trace /HPF (NEGATIVE) 03/25/24 12:16 Hyaline Casts Many /LPF (NEGATIVE) 03/25/24 12:16 Ur Culture Indicated? No/not indicated 03/25/24 12:16 SARS-CoV-2 (PCR) Negative (NEGATIVE) 03/25/24 11:37 Influenza Type A (PCR) Negative (NEGATIVE) 03/25/24 11:37 Influenza Type B (PCR) Negative (NEGATIVE) 03/25/24 11:37 RSV (PCR) Negative (NEGATIVE) 03/25/24 11:37 Blood Type O POSITIVE 03/25/24 22:04 Antibody Screen Negative 03/25/24 22:04 Crossmatch See Detail 03/25/24 22:04 Review of Systems Constitutional: Weakness and Malaise Eyes: No Symptoms Reported ENT: No Symptoms Reported Respiratory: Cough, Shortness of Breath, SOB with Excertion and Sputum Cardiovascular: Edema Gastrointestinal: No Symptoms Reported Genitourinary: No Symptoms Reported Musculoskeletal: No Symptoms Reported Skin: No Symptoms Reported Neurological: Confusion Physical Exam Vital Signs: Vital Signs Temperature 97.6 F Temperature 98.5 F Pulse Rate 100 Pulse Rate 102 Pulse Rate 94 Pulse Rate 80 Pulse Rate 85 Pulse Rate 85 Respiratory Rate 31 Respiratory Rate 30 Respiratory Rate 29 Respiratory Rate 19 Respiratory Rate 25 Blood Pressure 126/67 Blood Pressure 110/61 Blood Pressure 107/66 Blood Pressure 99/50 Blood Pressure 98/57 O2 Sat by Pulse Oximetry 98 O2 Sat by Pulse Oximetry 97 O2 Sat by Pulse Oximetry 93 O2 Sat by Pulse Oximetry 100 O2 Sat by Pulse Oximetry 100 O2 Sat by Pulse Oximetry 100 Oriented: Normal Eyes: Normal Throat: Normal Respiratory: Rhonchi Throughout Cardiovascular: Tachycardia and Edema Auscultation: Bowel Sounds: Normal Palpation: Normal Tenderness: Normal Skin: Decreased [place] Musculoskeletal: Motor Deficit Psychiatric: Normal Mood Description: Calm Affect: Normal Speech Pattern: Clear and Appropriate Assessment/Plan (1) Pneumonia: Qualifiers: Laterality: left Lung location: upper lobe of lung Pneumonia type: due to unspecified organism Qualified Code(s): J18.9 - Pneumonia, unspecified organism Status: Acute (2) Severe anemia: Status: Chronic (3) Acute kidney failure: Qualifiers: Acute renal failure type: unspecified Qualified Code(s): N17.9 - Acute kidney failure, unspecified Status: Acute (4) Hypokalemia: Status: Acute (5) Hypomagnesemia: Status: Acute (6) Lung cancer: Qualifiers: Laterality: right Lung location: unspecified part of lung Qualified Code(s): C34.91 - Malignant neoplasm of unspecified part of right bronchus or lung Status: Chronic (7) Respiratory failure with hypoxia: Qualifiers: Chronicity: acute on chronic Qualified Code(s): J96.21 - Acute and chronic respiratory failure with hypoxia Status: Chronic (8) Atrial fibrillation: Qualifiers: Atrial fibrillation type: unspecified chronic Qualified Code(s): I48.20 - Chronic atrial fibrillation, unspecified Status: Chronic (9) Chronic respiratory failure: Qualifiers: Respiratory failure complication: hypoxia Qualified Code(s): J96.11 - Chronic respiratory failure with hypoxia Status: Chronic Review H&P Reviewed: Yes Patient was examined?: Yes
[2024-03-26] MEDS: LASIX PO SCH (10:01)
[2024-03-26] MEDS: ZESTRIL TAB 40 MG PO SCH (10:01)
[2024-03-26] MEDS: LOPRESSOR TAB 50 MG PO SCH (11:22)
[2024-03-26] MEDS: ELIQUIS PO SCH (11:22)
[2024-03-26] MEDS: CORDARONE TAB 200 MG PO SCH (11:22)
[2024-03-26] MEDS: K-DUR TAB 20 MEQ PO SCH (11:22)
[2024-03-26] MEDS: TIOTROPIUM OLODATEROL IN SCH (13:45)
[2024-03-26] MEDS: [UNRECOGNIZED DRUG - OTHER] IN SCH (13:45)
[2024-03-26] MEDS ORDERED: VANCOMYCIN IV *PREMIX 1.25 G/250 ML BAG 1.25 G/250 ML PIGGYBACK IV SCH (18:00)
[2024-03-26] MEDS ORDERED: DUONEB 0.5 MG/3 MG (3 mL) NEB ONE (20:01)
[2024-03-26 20:18] LABS: HEMOGLOBIN 10.6 g/dL (13.5-18.0)
[2024-03-26] MEDS ORDERED: LOPRESSOR TAB 50 MG PO SCH (21:00)
[2024-03-26] MEDS: MILK OF MAGNESIA PO PRN (21:00)
[2024-03-26] MEDS: RESTORIL CAP 15 MG PO PRN (21:33)
[2024-03-27] MEDS: MORPHINE SULFATE INJ 2 MG INJ IVP PRN (00:22)
[2024-03-27 05:24] LABS: BASOPHILS # (AUTO) 0.1 X10^3/uL (0.0-0.1); EOSINOPHILS # (AUTO) 0.2 x10^3/uL (0.0-0.2); HEMOGLOBIN 10.9 g/dL (13.5-18.0); LYMPHOCYTES # (AUTO) 0.5 X10^3/uL (1.3-2.9); MONOCYTES # (AUTO) 0.7 x10^3/uL (0.3-0.8); WHITE BLOOD COUNT 6.9 X10^3/uL (3.6-10.0)
[2024-03-27 05:36] LABS: ALANINE AMINOTRANSFERASE 20 Units/L (12-78); ALBUMIN 2.8 g/dL (3.4-5.0); ALKALINE PHOSPHATASE 95 Units/L (46-116); ASPARTATE AMINO TRANSFERASE 22 Units/L (15-37); BLOOD UREA NITROGEN 13 mg/dL (7-18); CALCIUM 9.2 mg/dL (8.5-10.1); CARBON DIOXIDE 41.9 mmol/L (21-32); CHLORIDE 104 mmol/L (98-107); COR CA(FOR HYPOALB) 10.2 mg/dL (8.5-10.1); COR NA(FOR HYPERGLY) 147 mmol/L (136-145); CREATININE 1.09 mg/dL (0.70-1.30); GLUCOSE 125 mg/dL (65-99); MAGNESIUM 1.5 mg/dL (2.0-2.9); POTASSIUM 3.9 mmol/L (3.5-5.1); SODIUM 146 mmol/L (136-145); TOTAL PROTEIN 6.5 g/dL (6.4-8.2); eGFR NON BLACK RACES > 60 (>60)
[2024-03-27 05:39] LABS: BASOPHILS % (AUTO) 0.8 % (0.2-1.0); EOSINOPHILS % (AUTO) 2.3 % (0.9-2.9); HEMATOCRIT 31.9 % (42.0-54.0); LYMPHOCYTES % (AUTO) 7.7 % (21.0-51.0); MEAN CORPUSCULAR HEMOGLOBIN 30.9 pg (27.0-34.0); MEAN CORPUSCULAR HGB CONC 34.2 g/dL (33.0-35.0); MEAN CORPUSCULAR VOLUME 90.4 fL (80.0-100.0); MEAN PLATELET VOLUME 8.2 fL (7.4-11.0); MONOCYTES % (AUTO) 10.8 % (0.0-13.0); NEUTROPHILS # (AUTO) 5.4 x10^3/uL (2.2-4.8); NEUTROPHILS % (AUTO) 78.4 % (42.0-75.0); PLATELET COUNT 153 X10^3/uL (150.0-450.0); RED BLOOD COUNT 3.53 X10^6/uL (4.7-6.0); RED CELL DISTRIBUTION WIDTH 15.3 % (11.6-16.5)
[2024-03-27] MEDS ORDERED: CONSULT PHARMACY - POTASSIUM & MAGNESIUM XX SCH (06:00)
[2024-03-27] MEDS ORDERED: ATIVAN INJ 2 MG VIAL ONE (06:10)
[2024-03-27] MEDS: ATIVAN INJ 2 MG VIAL IVP PRN (06:11)
[2024-03-27] MEDS: PHARMACY COMMENT IV ONE (09:19)
[2024-03-27] MEDS: K-DUR TAB 20 MEQ PO SCH (09:26)
--- NOTE | 2024-03-27 09:44 | PCM.PROG ---
Progress Note Progress Note for Day of Date of Exam: 03/27/24 Subjective Subjective: Patient is a 78y/o male with a PMH of lung cancer s/p lobectomy, CAD s/p CABG, CHF, HTN, HLD, atrial fibrillation and anemia admitted for pneumonia, acute on chronic respiratory failure, and anemia. He was started on IV antibiotics and bronchodilators. He is currently on bipap support due to hypercapnia and hypoxia. Overnight, he was more agitated and restless, he was started on IV ativan as needed. He is more calm this morning. Labs/imaging reviewed: -WBC 6.9, hemoglobin 10.9, platelets 153, sodium 146, potassium 3.9, creatinine 1.09, glucose 125 -CXR: left sided pneumonia Plan: Continue ICU care for closer monitoring, wean O2 as tolerated. BiPAP prn. Hemoglobin stabilized s/p 2 units packed red blood cells. Monitor H&H. Continue IV antibiotics and bronchodilators. Follow pending cultures. Hold lasix and lisinopril, other home medications have been resumed. Monitor BP. Replace K and mag as per protocol. Patient has had recurrent admission and seems to be declini ng in health due to malignancy. Family member present at bedside, updated treatment plan. Family is awaiting hospice as patient is not a candidate for any aggressive chemo/radiation. He was not able to tolerate chemo and did receive palliative radiation for a lesion in the trachea. Hospice has been contacted to discuss further options. Patient is a DNR. Monitor AM labs/imaging. Time spent for clinical assessment, reviewing labs/imaging, physical exam, decision making and documentation greater than 45 mins. Past Medical Family Social History Allergies: Allergies warfarin [From Coumadin] Adverse Reaction (Intermediate, Verified 02/29/24 08:15) gastric bleeding Review of Systems ROS changes noted: see HPI Vital Signs and I&O's Vital Signs: Vital Signs Temperature 97.9 F Temperature 98.6 F Pulse Rate 92 Pulse Rate 98 Pulse Rate 109 Pulse Rate 105 Pulse Rate 101 Pulse Rate 104 Pulse Rate 104 Pulse Rate 101 Pulse Rate 104 Pulse Rate 96 Pulse Rate 104 Pulse Rate 96 Pulse Rate 100 Pulse Rate 101 Pulse Rate 101 Pulse Rate 107 Respiratory Rate 22 Respiratory Rate 22 Respiratory Rate 30 Respiratory Rate 33 Respiratory Rate 36 Respiratory Rate 38 Respiratory Rate 23 Respiratory Rate 35 Respiratory Rate 40 Respiratory Rate 40 Respiratory Rate 35 Respiratory Rate 36 Respiratory Rate 37 Respiratory Rate 34 Respiratory Rate 37 Respiratory Rate 23 Respiratory Rate 24 Respiratory Rate 20 Respiratory Rate 25 Blood Pressure 125/68 Blood Pressure 121/59 Blood Pressure 167/93 Blood Pressure 117/59 Blood Pressure 117/59 Blood Pressure 159/70 Blood Pressure 183/90 Blood Pressure 164/78 Blood Pressure 164/78 Blood Pressure 123/58 Blood Pressure 154/104 Blood Pressure 141/87 O2 Sat by Pulse Oximetry 96 O2 Sat by Pulse Oximetry 95 O2 Sat by Pulse Oximetry 95 O2 Sat by Pulse Oximetry 83 O2 Sat by Pulse Oximetry 82 O2 Sat by Pulse Oximetry 91 O2 Sat by Pulse Oximetry 91 O2 Sat by Pulse Oximetry 90 O2 Sat by Pulse Oximetry 86 O2 Sat by Pulse Oximetry 86 O2 Sat by Pulse Oximetry 84 O2 Sat by Pulse Oximetry 86 O2 Sat by Pulse Oximetry 94 O2 Sat by Pulse Oximetry 94 O2 Sat by Pulse Oximetry 94 O2 Sat by Pulse Oximetry 94 Intake and Output: Intake & Output 03/24/24 03/25/24 03/26/24 03/27/24 23:59 23:59 23:59 23:59 Intake Total 227 / 227 2645 / 2645 993 / 993 Output Total 650 / 650 1650 / 1650 800 / 800 Balance -423 / -423 995 / 995 193 / 193 Physical Exam Oriented: Normal and Other Eyes: Normal Throat: Normal Respiratory: Diminished Cardiovascular: Normal Auscultation: Bowel Sounds: Normal Tenderness: Normal Skin: Decreased Turgur Musculoskeletal: Motor Deficit Psychiatric: Normal Mood Description: Calm Affect: Normal Speech Pattern: Appropriate Laboratory and Diagnostics 03/27/24 05:00 03/27/24 05:00 Labs: 03/25/24 11:46 Blood Blood Culture - Preliminary 03/25/24 11:40 Blood Blood Culture - Preliminary Laboratory WBC 6.9 X10^3/uL (3.6-10.0) 03/27/24 05:00 RBC 3.53 X10^6/uL (4.7-6.0) L 03/27/24 05:00 Hgb 10.9 g/dL (13.5-18.0) L 03/27/24 05:00 Hct 31.9 % (42.0-54.0) L 03/27/24 05:00 MCV 90.4 fL (80.0-100.0) 03/27/24 05:00 MCH 30.9 pg (27.0-34.0) 03/27/24 05:00 MCHC 34.2 g/dL (33.0-35.0) 03/27/24 05:00 RDW 15.3 % (11.6-16.5) 03/27/24 05:00 Plt Count 153 X10^3/uL (150.0-450.0) 03/27/24 05:00 Plt Count Comment Adequate (ADEQUATE) 03/25/24 11:40 MPV 8.2 fL (7.4-11.0) 03/27/24 05:00 Neut % (Auto) 78.4 % (42.0-75.0) H 03/27/24 05:00 Lymph % (Auto) 7.7 % (21.0-51.0) L 03/27/24 05:00 [place] % (Auto) 10.8 % (0.0-13.0) 03/27/24 05:00 Eos % (Auto) 2.3 % (0.9-2.9) 03/27/24 05:00 Baso % (Auto) 0.8 % (0.2-1.0) 03/27/24 05:00 Neut # (Auto) 5.4 x10^3/uL (2.2-4.8) H 03/27/24 05:00 Lymph # (Auto) 0.5 X10^3/uL (1.3-2.9) L 03/27/24 05:00 [place] # (Auto) 0.7 x10^3/uL (0.3-0.8) 03/27/24 05:00 Eos # (Auto) 0.2 x10^3/uL (0.0-0.2) 03/27/24 05:00 Baso # (Auto) 0.1 X10^3/uL (0.0-0.1) 03/27/24 05:00 Absolute Nucleated RBC 0.0 /100WBC 03/27/24 05:00 Total Counted 100 03/25/24 11:40 Neutrophils % (Manual) 96 % (39-76) H 03/25/24 11:40 Lymphocytes % (Manual) 4 % (13-43) L 03/25/24 11:40 Plt Morphology Comment Normal (NORMAL) 03/25/24 11:40 RBC Morphology Normal (NORMAL) 03/25/24 11:40 Sample Site Lrad 03/25/24 13:20 ABG pH 7.430 (7.35-7.45) 03/25/24 13:20 ABG pCO2 79.0 mmHg (35.0-45.0) H* 03/25/24 13:20 ABG pO2 82.0 mmHg (80.0-100.0) 03/25/24 13:20 ABG HCO3 52.4 mmol/L (22-26) H* 03/25/24 13:20 ABG O2 Saturation 96.0 % (90-100) 03/25/24 13:20 ABG Base Excess 23.4 mmol/L (-2.0-2.0) H 03/25/24 13:20 Rodriguez Test Pos 03/25/24 13:20 A-a Gradient 104.0 mmHg 03/25/24 13:20 FiO2 40.0 03/25/24 13:20 Blood Gas Comments Pt amairani well elj kg 03/25/24 13:20 Sodium 146 mmol/L (136-145) H 03/27/24 05:00 Corrected Sodium 147 mmol/L (136-145) H 03/27/24 05:00 Potassium 3.9 mmol/L (3.5-5.1) 03/27/24 05:00 Chloride 104 mmol/L (98-107) 03/27/24 05:00 Carbon Dioxide 41.9 mmol/L (21-32) H 03/27/24 05:00 BUN 13 mg/dL (7-18) 03/27/24 05:00 Creatinine 1.09 mg/dL (0.70-1.30) 03/27/24 05:00 Est GFR (MDRD) Af Amer > 60 (>60) 03/27/24 05:00 Est GFR (MDRD) Non-Af > 60 (>60) 03/27/24 05:00 Glucose 125 mg/dL (65-99) H 03/27/24 05:00 Lactic Acid 1.8 mmol/L (0.4-2.0) 03/25/24 11:40 Calcium 9.2 mg/dL (8.5-10.1) 03/27/24 05:00 Corrected Calcium 10.2 mg/dL (8.5-10.1) H 03/27/24 05:00 Magnesium 1.5 mg/dL (2.0-2.9) L 03/27/24 05:00 Total Bilirubin 1.00 mg/dL (0.2-1.0) 03/27/24 05:00 AST 22 Units/L (15-37) 03/27/24 05:00 ALT 20 Units/L (12-78) 03/27/24 05:00 Alkaline Phosphatase 95 Units/L (46-116) 03/27/24 05:00 Troponin I High Sens 43.2 ng/L (4.0-60.0) 03/25/24 11:40 B-Natriuretic Peptide 675 pg/mL (0-79) H 03/25/24 11:40 Total Protein 6.5 g/dL (6.4-8.2) 03/27/24 05:00 Albumin 2.8 g/dL (3.4-5.0) L 03/27/24 05:00 Globulin 3.7 g/dL (2.5-4.5) 03/27/24 05:00 Albumin/Globulin Ratio 0.8 Ratio (1.1-2.1) L 03/27/24 05:00 Specimen Type Catherized urine 03/25/24 12:16 Urine Color Yellow (YELLOW) 03/25/24 12:16 Urine Appearance Slightly hazy (CLEAR) 03/25/24 12:16 Urine pH 5.0 (5.0 - 8.0) 03/25/24 12:16 Ur Specific [place] 1.025 (1.000-1.030) 03/25/24 12:16 Urine Protein 3+ (NEGATIVE) 03/25/24 12:16 Urine Glucose (UA) Negative (NEGATIVE) 03/25/24 12:16 Urine Ketones Negative (NEGATIVE) 03/25/24 12:16 Urine Blood 2+ (NEGATIVE) 03/25/24 12:16 Urine Nitrite Negative (NEGATIVE) 03/25/24 12:16 Urine Bilirubin Negative (NEGATIVE) 03/25/24 12:16 Urine Urobilinogen 1+ (NORMAL) 03/25/24 12:16 Ur Leukocyte Esterase Negative (NEGATIVE) 03/25/24 12:16 Urine RBC 3-5 /HPF (0-3) A 03/25/24 12:16 Urine WBC 0-2 /HPF (0-5) 03/25/24 12:16 Ur Squamous Epith Cells Few /HPF (NEGATIVE) 03/25/24 12:16 Ur Transition Epith Cell Few /HPF (NEGATIVE) 03/25/24 12:16 Urine Bacteria Trace /HPF (NEGATIVE) 03/25/24 12:16 Hyaline Casts Many /LPF (NEGATIVE) 03/25/24 12:16 Ur Culture Indicated? No/not indicated 03/25/24 12:16 SARS-CoV-2 (PCR) Negative (NEGATIVE) 03/25/24 11:37 Influenza Type A (PCR) Negative (NEGATIVE) 03/25/24 11:37 Influenza Type B (PCR) Negative (NEGATIVE) 03/25/24 11:37 RSV (PCR) Negative (NEGATIVE) 03/25/24 11:37 Blood Type O POSITIVE 03/25/24 22:04 Antibody Screen Negative 03/25/24 22:04 Crossmatch See Detail 03/25/24 22:04 Plan (1) Pneumonia: Status: Acute Qualifiers: Laterality: left Lung location: upper lobe of lung Pneumonia type: due to unspecified organism Qualified Code(s): J18.9 - Pneumonia, unspecified organism (2) Severe anemia: Status: Chronic (3) Acute kidney failure: Status: Acute Qualifiers: Acute renal failure type: unspecified Qualified Code(s): N17.9 - Acute kidney failure, unspecified (4) Hypokalemia: Status: Acute (5) Hypomagnesemia: Status: Acute (6) Lung cancer: Status: Chronic Qualifiers: Laterality: right Lung location: unspecified part of lung Qualified Code(s): C34.91 - Malignant neoplasm of unspecified part of right bronchus or lung (7) Respiratory failure with hypoxia: Status: Chronic Qualifiers: Chronicity: acute on chronic Qualified Code(s): J96.21 - Acute and chronic respiratory failure with hypoxia (8) Atrial fibrillation: Status: Chronic Qualifiers: Atrial fibrillation type: unspecified chronic Qualified Code(s): I48.20 - Chronic atrial fibrillation, unspecified (9) Chronic respiratory failure: Status: Chronic Qualifiers: Respiratory failure complication: hypoxia Qualified Code(s): J96.11 - Chronic respiratory failure with hypoxia
[2024-03-27 09:50] LABS: CREATININE 1.07 mg/dL (0.70-1.30); VANCOMYCIN,TROUGH 16.8 ug/mL (15-20)
[2024-03-27] MEDS ORDERED: MAG-OX TAB PO SCH (10:00)
[2024-03-27] MEDS: MAALOX or MYLANTA PO PRN (16:38)
[2024-03-27] MEDS: NS 250 ML IV 25 ML IV PRN (20:23)
[2024-03-28] MEDS: DUONEB 0.5 MG/3 MG (3 mL) NEB PRN (02:34)
[2024-03-28 05:03] LABS: BASOPHILS # (AUTO) 0.1 X10^3/uL (0.0-0.1); EOSINOPHILS # (AUTO) 0.2 x10^3/uL (0.0-0.2); EOSINOPHILS % (AUTO) 3.8 % (0.9-2.9); HEMATOCRIT 34.2 % (42.0-54.0); HEMOGLOBIN 11.4 g/dL (13.5-18.0); LYMPHOCYTES # (AUTO) 0.3 X10^3/uL (1.3-2.9); MEAN CORPUSCULAR HEMOGLOBIN 30.4 pg (27.0-34.0); MEAN CORPUSCULAR HGB CONC 33.4 g/dL (33.0-35.0); MEAN PLATELET VOLUME 8.9 fL (7.4-11.0); MONOCYTES # (AUTO) 0.5 x10^3/uL (0.3-0.8); MONOCYTES % (AUTO) 8.6 % (0.0-13.0); NEUTROPHILS % (AUTO) 81.6 % (42.0-75.0); PLATELET COUNT 120 X10^3/uL (150.0-450.0); RED BLOOD COUNT 3.76 X10^6/uL (4.7-6.0); RED CELL DISTRIBUTION WIDTH 15.9 % (11.6-16.5); WHITE BLOOD COUNT 6.2 X10^3/uL (3.6-10.0)
[2024-03-28 05:11] LABS: ALANINE AMINOTRANSFERASE 17 Units/L (12-78); ALBUMIN 2.6 g/dL (3.4-5.0); ALKALINE PHOSPHATASE 97 Units/L (46-116); ASPARTATE AMINO TRANSFERASE 33 Units/L (15-37); BLOOD UREA NITROGEN 11 mg/dL (7-18); CALCIUM 9.1 mg/dL (8.5-10.1); CARBON DIOXIDE 33.9 mmol/L (21-32); CHLORIDE 103 mmol/L (98-107); COR CA(FOR HYPOALB) 10.2 mg/dL (8.5-10.1); GLUCOSE 109 mg/dL (65-99); MAGNESIUM 1.7 mg/dL (2.0-2.9); SODIUM 142 mmol/L (136-145); TOTAL PROTEIN 6.5 g/dL (6.4-8.2); eGFR NON BLACK RACES > 60 (>60)
[2024-03-28 06:21] VITALS: O2SAT 92
[2024-03-28] MEDS ORDERED: CONSULT PHARMACY - POTASSIUM & MAGNESIUM XX SCH (07:00)
[2024-03-28 08:58] VITALS: BMI 25.1
[2024-03-28] MEDS: MORPHINE SULFATE INJ 2 MG INJ IVP PRN (10:06)
[2024-03-28] MEDS: MAG-OX TAB PO SCH (10:17)
--- NOTE | 2024-03-28 10:23 | PCM.PROG ---
Progress Note Progress Note for Day of Date of Exam: 03/28/24 Subjective Subjective: Patient is a 78y/o male with a PMH of lung cancer s/p lobectomy, CAD s/p CABG, CHF, HTN, HLD, atrial fibrillation and anemia admitted for pneumonia, acute on chronic respiratory failure, and anemia. He is currently on IV antibiotics and bronchodilators. He is currently on bipap support due to hypercapnia and hypoxia. He does alternate between high flow and bipap. No acute events overnight. Labs/imaging reviewed: -WBC 6.2, hemoglobin 11.4, platelets 120, sodium 142, potassium 5.0, creatinine 1.00, glucose 109 Plan: Continue ICU care for closer monitoring, wean O2 as tolerated. BiPAP prn. Hemoglobin stabilized s/p 2 units packed red blood cells. Monitor H&H. Continue IV antibiotics and bronchodilators. Follow pending cultures. Hold lasix and lisinopril, other home medications have been resumed. Monitor BP. Replace K and mag as per protocol. Will increase morphine frequency due to air hunger. Patient has had recurrent admission and seems to be declining in health due to malignancy. Family member present at bedside, updated treatment plan. Family is awaiting hospice as patient is not a candidate for any aggressive chemo/radiation. He was not able to tolerate chemo and did receive palliative radiation for a lesion in the trachea. Hospice has been contacted to discuss further options. Patient is a DNR. Monitor AM labs/imaging. Time spent for clinical assessment, reviewing labs/imaging, physical exam, decision making and documentation greater than 45 mins. Past Medical Family Social History Allergies: Allergies warfarin [From Coumadin] Adverse Reaction (Intermediate, Verified 02/29/24 08:15) gastric bleeding Review of Systems ROS changes noted: see HPI Vital Signs and I&O's Vital Signs: Vital Signs Temperature 97.9 F Pulse Rate 103 Pulse Rate 110 Pulse Rate 102 Pulse Rate 107 Pulse Rate 120 Respiratory Rate 27 Respiratory Rate 24 Respiratory Rate 29 Respiratory Rate 28 Respiratory Rate 30 Respiratory Rate 29 Respiratory Rate 29 Respiratory Rate 28 Respiratory Rate 25 Blood Pressure 163/81 Blood Pressure 134/73 Blood Pressure 84/57 Blood Pressure 93/69 O2 Sat by Pulse Oximetry 92 O2 Sat by Pulse Oximetry 87 O2 Sat by Pulse Oximetry 97 O2 Sat by Pulse Oximetry 95 O2 Sat by Pulse Oximetry 86 Intake and Output: Intake & Output 12/03/26/24 03/27/24 03/28/24 23:59 23:59 23:59 23:59 Intake Total 227 / 227 2645 / 2645 1967 / 1967 143 / 143 Output Total 650 / 650 1650 / 1650 4000 / 4000 800 / 800 Balance -423 / -423 995 / 995 -2032 / -2032 -657 / -657 Physical Exam Oriented: Other Eyes: Normal Throat: Normal Respiratory: Diminished Cardiovascular: Normal Auscultation: Bowel Sounds: Normal Tenderness: Normal Skin: Decreased Turgur Musculoskeletal: Normal Psychiatric: Normal Mood Description: Calm Affect: Normal Laboratory and Diagnostics 03/28/24 04:26 03/28/24 04:26 Labs: 03/25/24 11:46 Blood Blood Culture - Preliminary 03/25/24 11:40 Blood Blood Culture - Preliminary Laboratory WBC 6.2 X10^3/uL (3.6-10.0) 03/28/24 04:26 RBC 3.76 X10^6/uL (4.7-6.0) L 03/28/24 04:26 Hgb 11.4 g/dL (13.5-18.0) L 03/28/24 04:26 Hct 34.2 % (42.0-54.0) L 03/28/24 04:26 MCV 91.0 fL (80.0-100.0) 03/28/24 04:26 MCH 30.4 pg (27.0-34.0) 03/28/24 04:26 MCHC 33.4 g/dL (33.0-35.0) 03/28/24 04:26 RDW 15.9 % (11.6-16.5) 03/28/24 04:26 Plt Count 120 X10^3/uL (150.0-450.0) L 03/28/24 04:26 Plt Count Comment Adequate (ADEQUATE) 03/25/24 11:40 MPV 8.9 fL (7.4-11.0) 03/28/24 04:26 Neut % (Auto) 81.6 % (42.0-75.0) H 03/28/24 04:26 Lymph % (Auto) 5.0 % (21.0-51.0) L 03/28/24 04:26 [place] % (Auto) 8.6 % (0.0-13.0) 03/28/24 04: Eos % (Auto) 3.8 % (0.9-2.9) H 03/28/24 04: Baso % (Auto) 1.0 % (0.2-1.0) 03/28/24 04:26 Neut # (Auto) 5.0 x10^3/uL (2.2-4.8) H 03/28/24 04:26 Lymph # (Auto) 0.3 X10^3/uL (1.3-2.9) L 03/28/24 04:26 [place] # (Auto) 0.5 x10^3/uL (0.3-0.8) 03/28/24 04: Eos # (Auto) 0.2 x10^3/uL (0.0-0.2) 03/28/24 04: Baso # (Auto) 0.1 X10^3/uL (0.0-0.1) 03/28/24 04: Absolute Nucleated RBC 0.1 /100WBC 03/28/24 04:26 Total Counted 100 03/25/24 11:40 Neutrophils % (Manual) 96 % (39-76) H 03/25/24 11:40 Lymphocytes % (Manual) 4 % (13-43) L 03/25/24 11:40 Plt Morphology Comment Normal (NORMAL) 03/25/24 11:40 RBC Morphology Normal (NORMAL) 03/25/24 11:40 Sample Site Lrad 03/25/24 13:20 ABG pH 7.430 (7.35-7.45) 03/25/24 13:20 ABG pCO2 79.0 mmHg (35.0-45.0) H* 03/25/24 13:20 ABG pO2 82.0 mmHg (80.0-100.0) 03/25/24 13:20 ABG HCO3 52.4 mmol/L (22-26) H* 03/25/24 13:20 ABG O2 Saturation 96.0 % (90-100) 03/25/24 13:20 ABG Base Excess 23.4 mmol/L (-2.0-2.0) H 03/25/24 13:20 Rodriguez Test Pos 03/25/24 13:20 A-a Gradient 104.0 mmHg 03/25/24 13:20 FiO2 40.0 03/25/24 13:20 Blood Gas Comments Pt amairani well elj kg 03/25/24 13:20 Sodium 142 mmol/L (136-145) 03/28/24 04:26 Corrected Sodium TNP 03/28/24 04:26 Potassium 5.0 mmol/L (3.5-5.1) 03/28/24 04:26 Chloride 103 mmol/L (98-107) 03/28/24 04:26 Carbon Dioxide 33.9 mmol/L (21-32) H 03/28/24 04:26 BUN 11 mg/dL (7-18) 03/28/24 04:26 Creatinine 1.00 mg/dL (0.70-1.30) 03/28/24 04:26 Est GFR (MDRD) Af Amer > 60 (>60) 03/28/24 04:26 Est GFR (MDRD) Non-Af > 60 (>60) 03/28/24 04:26 Glucose 109 mg/dL (65-99) H 03/28/24 04:26 Lactic Acid 1.8 mmol/L (0.4-2.0) 03/25/24 11:40 Calcium 9.1 mg/dL (8.5-10.1) 03/28/24 04:26 Corrected Calcium 10.2 mg/dL (8.5-10.1) H 03/28/24 04:26 Magnesium 1.7 mg/dL (2.0-2.9) L 03/28/24 04:26 Total Bilirubin 1.00 mg/dL (0.2-1.0) 03/28/24 04:26 AST 33 Units/L (15-37) 03/28/24 04:26 ALT 17 Units/L (12-78) 03/28/24 04:26 Alkaline Phosphatase 97 Units/L (46-116) 03/28/24 04:26 Troponin I High Sens 43.2 ng/L (4.0-60.0) 03/25/24 11:40 B-Natriuretic Peptide 675 pg/mL (0-79) H 03/25/24 11:40 Total Protein 6.5 g/dL (6.4-8.2) 03/28/24 04:26 Albumin 2.6 g/dL (3.4-5.0) L 03/28/24 04:26 Globulin 3.9 g/dL (2.5-4.5) 03/28/24 04:26 Albumin/Globulin Ratio 0.7 Ratio (1.1-2.1) L 03/28/24 04:26 Specimen Type Catherized urine 03/25/24 12:16 Urine Color Yellow (YELLOW) 03/25/24 12:16 Urine Appearance Slightly hazy (CLEAR) 03/25/24 12:16 Urine pH 5.0 (5.0 - 8.0) 03/25/24 12:16 Ur Specific [place] 1.025 (1.000-1.030) 03/25/24 12:16 Urine Protein 3+ (NEGATIVE) 03/25/24 12:16 Urine Glucose (UA) Negative (NEGATIVE) 03/25/24 12:16 Urine Ketones Negative (NEGATIVE) 03/25/24 12:16 Urine Blood 2+ (NEGATIVE) 03/25/24 12:16 Urine Nitrite Negative (NEGATIVE) 03/25/24 12:16 Urine Bilirubin Negative (NEGATIVE) 03/25/24 12:16 Urine Urobilinogen 1+ (NORMAL) 03/25/24 12:16 Ur Leukocyte Esterase Negative (NEGATIVE) 03/25/24 12:16 Urine RBC 3-5 /HPF (0-3) A 03/25/24 12:16 Urine WBC 0-2 /HPF (0-5) 03/25/24 12:16 Ur Squamous Epith Cells Few /HPF (NEGATIVE) 03/25/24 12:16 Ur Transition Epith Cell Few /HPF (NEGATIVE) 03/25/24 12:16 Urine Bacteria Trace /HPF (NEGATIVE) 03/25/24 12:16 Hyaline Casts Many /LPF (NEGATIVE) 03/25/24 12:16 Ur Culture Indicated? No/not indicated 03/25/24 12:16 Vancomycin Trough 16.8 ug/mL (15-20) 03/27/24 08:59 Digoxin 0.41 ng/mL (0.9-2) L 03/27/24 20:05 SARS-CoV-2 (PCR) Negative (NEGATIVE) 03/25/24 11:37 Influenza Type A (PCR) Negative (NEGATIVE) 03/25/24 11:37 Influenza Type B (PCR) Negative (NEGATIVE) 03/25/24 11:37 RSV (PCR) Negative (NEGATIVE) 03/25/24 11:37 Blood Type O POSITIVE 03/25/24 22:04 Antibody Screen Negative 03/25/24 22:04 Crossmatch See Detail 03/25/24 22:04 Plan (1) Pneumonia: Status: Acute Qualifiers: Laterality: left Lung location: upper lobe of lung Pneumonia type: due to unspecified organism Qualified Code(s): J18.9 - Pneumonia, unspecified organism (2) Severe anemia: Status: Chronic (3) Acute kidney failure: Status: Acute Qualifiers: Acute renal failure type: unspecified Qualified Code(s): N17.9 - Acute kidney failure, unspecified (4) Hypokalemia: Status: Acute (5) Hypomagnesemia: Status: Acute (6) Lung cancer: Status: Chronic Qualifiers: Laterality: right Lung location: unspecified part of lung Qualified Code(s): C34.91 - Malignant neoplasm of unspecified part of right bronchus or lung (7) Respiratory failure with hypoxia: Status: Chronic Qualifiers: Chronicity: acute on chronic Qualified Code(s): J96.21 - Acute and chronic respiratory failure with hypoxia (8) Atrial fibrillation: Status: Chronic Qualifiers: Atrial fibrillation type: unspecified chronic Qualified Code(s): I48.20 - Chronic atrial fibrillation, unspecified (9) Chronic respiratory failure: Status: Chronic Qualifiers: Respiratory failure complication: hypoxia Qualified Code(s): J96.11 - Chronic respiratory failure with hypoxia
[2024-03-28 11:41] VITALS: BP 158/77; PULSE 118; TEMP 98.4
[2024-03-28 15:35] VITALS: RESP 21
--- NOTE | 2024-03-29 09:56 | W.DIS.FURT ---
Summary of Discharge Discharge Summary of Date Date of Exam: 03/28/24 Admission Date Date of Admission: 03/25/24 Admission Diagnosis Patient Problems (Updated 03/26/24 @ 09:49 by Bethany Ramsay MD) Pneumonia involving left lung (Acute) J18.9 Lung cancer (Chronic) C34.90 Respiratory failure with hypoxia (Chronic) J96.91 Anemia (Acute) D64.9 CHF exacerbation (Acute) I50.9 Hospital Course: *Patient discharged home hospice. Patient is a 78y/o male with a PMH of lung cancer s/p lobectomy, CAD s/p CABG, CHF, HTN, HLD, atrial fibrillation and anemia admitted for pneumonia, acute on chronic respiratory failure, and anemia. He is currently on IV antibiotics and bronchodilators. He is currently on bipap support due to hypercapnia and hypoxia. He does alternate between high flow and bipap. No acute events overnight. Labs/imaging reviewed: -WBC 6.2, hemoglobin 11.4, platelets 120, sodium 142, potassium 5.0, creatinine 1.00, glucose 109 Plan: Continue ICU care for closer monitoring, wean O2 as tolerated. BiPAP prn. Hemoglobin stabilized s/p 2 units packed red blood cells. Monitor H&H. Continue IV antibiotics and bronchodilators. Follow pending cultures. Hold lasix and lisinopril, other home medications have been resumed. Monitor BP. Replace K and mag as per protocol. Will increase morphine frequency due to air hunger. Patient has had recurrent admission and seems to be declining in health due to malignancy. Family member present at bedside, updated treatment plan. Family is awaiting hospice as patient is not a candidate for any aggressive chemo/radiation. He was not able to tolerate chemo and did receive palliative radiation for a lesion in the trachea. Hospice has been contacted to discuss further options. Patient is a DNR. Monitor AM labs/imaging. Time spent for clinical assessment, reviewing labs/imaging, physical exam, decision making and documentation greater than 45 mins. Vital Signs: Vital Signs (72 hours) 03/25/24 11:45 03/25/24 11:57 03/25/24 11:57 Temperature Pulse Rate 92 H 70 Pulse Rate [Bilateral Radial] Respiratory Rate 26 H 25 H Blood Pressure 99/60 Blood Pressure [Left Arm] O2 Sat by Pulse Oximetry 100 Oxygen Delivery Method Oxygen Flow Rate FIO2% 03/25/24 12:00 03/25/24 11:45 03/25/24 12:00 Temperature Pulse Rate 67 72 Pulse Rate [Bilateral Radial] Respiratory Rate 20 Blood Pressure Blood Pressure [Left Arm] O2 Sat by Pulse Oximetry 100 97 Oxygen Delivery Method Oxygen Flow Rate FIO2% 40 03/25/24 12:14 03/25/24 12:14 03/25/24 12:15 Temperature Pulse Rate 77 75 Pulse Rate [Bilateral Radial] Respiratory Rate 17 22 Blood Pressure 103/54 Blood Pressure [Left Arm] O2 Sat by Pulse Oximetry 100 100 Oxygen Delivery Method Oxygen Flow Rate FIO2% 03/25/24 12:30 03/25/24 12:45 03/25/24 13:00 Temperature Pulse Rate 76 69 76 Pulse Rate [Bilateral Radial] Respiratory Rate 20 20 19 Blood Pressure Blood Pressure [Left Arm] O2 Sat by Pulse Oximetry 100 100 100 Oxygen Delivery Method Oxygen Flow Rate FIO2% 03/25/24 13:15 03/25/24 13:30 03/25/24 13:45 Temperature Pulse Rate 75 86 76 Pulse Rate [Bilateral Radial] Respiratory Rate 21 21 19 Blood Pressure Blood Pressure [Left Arm] O2 Sat by Pulse Oximetry 99 99 100 Oxygen Delivery Method Oxygen Flow Rate FIO2% 03/25/24 14:00 03/25/24 14:15 03/25/24 14:30 Temperature Pulse Rate 81 78 75 Pulse Rate [Bilateral Radial] Respiratory Rate 18 20 38 H Blood Pressure Blood Pressure [Left Arm] O2 Sat by Pulse Oximetry 100 99 100 Oxygen Delivery Method Oxygen Flow Rate FIO2% 03/25/24 14:45 03/25/24 15:01 03/25/24 15:15 Temperature Pulse Rate 87 88 82 Pulse Rate [Bilateral Radial] Respiratory Rate 27 H 29 H 32 H Blood Pressure Blood Pressure [Left Arm] O2 Sat by Pulse Oximetry 99 99 99 Oxygen Delivery Method Oxygen Flow Rate FIO2% 03/25/24 15:30 03/25/24 15:40 03/25/24 15:40 Temperature Pulse Rate 92 H 92 H Pulse Rate [Bilateral Radial] Respiratory Rate 25 H 26 H Blood Pressure 109/69 Blood Pressure [Left Arm] O2 Sat by Pulse Oximetry 99 99 Oxygen Delivery Method Oxygen Flow Rate FIO2% 03/25/24 15:45 03/25/24 16:00 03/25/24 16:00 Temperature Pulse Rate 100 H 89 Pulse Rate [Bilateral Radial] Respiratory Rate 27 H 28 H Blood Pressure 102/57 Blood Pressure [Left Arm] O2 Sat by Pulse Oximetry 100 98 Oxygen Delivery Method Oxygen Flow Rate FIO2% 03/25/24 16:15 03/25/24 16:30 03/25/24 16:30 Temperature Pulse Rate 94 H 100 H Pulse Rate [Bilateral Radial] Respiratory Rate 30 H 34 H Blood Pressure 106/58 Blood Pressure [Left Arm] O2 Sat by Pulse Oximetry 99 96 Oxygen Delivery Method Oxygen Flow Rate FIO2% 03/25/24 16:45 03/25/24 17:15 03/25/24 17:15 Temperature 98.7 F Pulse Rate 103 H Pulse Rate [Bilateral Radial] 109 H Respiratory Rate 34 H 31 H Blood Pressure Blood Pressure [Left Arm] 109/55 O2 Sat by Pulse Oximetry 99 99 Oxygen Delivery Method Nasal Cannula Nasal Cannula Oxygen Flow Rate 3 FIO2% 03/25/24 18:00 03/25/24 17:20 03/25/24 17:38 Temperature Pulse Rate 97 H 103 H Pulse Rate [Bilateral Radial] Respiratory Rate 31 H 23 Blood Pressure 103/55 106/58 Blood Pressure [Left Arm] O2 Sat by Pulse Oximetry 100 99 Oxygen Delivery Method Nasal Cannula Nasal Cannula Oxygen Flow Rate 3 3 3 FIO2% 32 03/25/24 20:15 03/25/24 20:15 03/25/24 19:00 Temperature 98.2 F Pulse Rate 98 H Pulse Rate [Bilateral Radial] 101 H Respiratory Rate 29 H Blood Pressure Blood Pressure [Left Arm] 116/55 O2 Sat by Pulse Oximetry 100 100 Oxygen Delivery Method Nasal Cannula Nasal Cannula Oxygen Flow Rate 3 3 FIO2% 32 03/25/24 22:14 03/25/24 22:12 03/25/24 19:00 Temperature Pulse Rate 110 H Pulse Rate [Bilateral Radial] Respiratory Rate 34 H Blood Pressure Blood Pressure [Left Arm] O2 Sat by Pulse Oximetry Oxygen Delivery Method Nasal Cannula Oxygen Flow Rate 3 FIO2% 03/25/24 19:00 03/25/24 21:00 03/25/24 23:00 Temperature 98.2 F Pulse Rate 101 H 114 H 91 H Pulse Rate [Bilateral Radial] Respiratory Rate 29 H 28 H 19 Blood Pressure 116/55 101/54 114/65 Blood Pressure [Left Arm] O2 Sat by Pulse Oximetry 100 95 100 Oxygen Delivery Method Oxygen Flow Rate 3 3 3 FIO2% 03/26/24 01:00 03/25/24 23:00 03/25/24 22:00 Temperature 98.1 F Pulse Rate 98 H 91 H 98 H Pulse Rate [Bilateral Radial] Respiratory Rate 25 H 19 31 H Blood Pressure 153/67 114/65 110/55 Blood Pressure [Left Arm] O2 Sat by Pulse Oximetry 97 100 100 Oxygen Delivery Method Nasal Cannula Oxygen Flow Rate 3 3 3 FIO2% 03/25/24 23:12 03/26/24 02:00 03/26/24 03:00 Temperature Pulse Rate 85 85 Pulse Rate [Bilateral Radial] Respiratory Rate 19 25 H 19 Blood Pressure 98/57 99/50 Blood Pressure [Left Arm] O2 Sat by Pulse Oximetry 100 100 Oxygen Delivery Method Oxygen Flow Rate 3 3 FIO2% 03/26/24 04:00 03/26/24 08:23 03/26/24 08:23 Temperature 98.5 F Pulse Rate 80 100 H Pulse Rate [Bilateral Radial] Respiratory Rate 29 H Blood Pressure 107/66 Blood Pressure [Left Arm] O2 Sat by Pulse Oximetry 100 98 Oxygen Delivery Method Nasal Cannula Oxygen Flow Rate 3 3 FIO2% 32 03/26/24 07:01 03/26/24 08:00 03/26/24 07:00 Temperature 97.6 F Pulse Rate 94 H 102 H Pulse Rate [Bilateral Radial] Respiratory Rate 30 H 31 H Blood Pressure 110/61 126/67 Blood Pressure [Left Arm] O2 Sat by Pulse Oximetry 93 L 97 Oxygen Delivery Method Nasal Cannula Oxygen Flow Rate 3 FIO2% 03/26/24 20:25 03/26/24 20:25 03/26/24 21:36 Temperature Pulse Rate 93 H 96 H Pulse Rate [Bilateral Radial] Respiratory Rate Blood Pressure Blood Pressure [Left Arm] O2 Sat by Pulse Oximetry 100 Oxygen Delivery Method Nasal Cannula Oxygen Flow Rate 3 FIO2% 32 03/27/24 00:22 03/27/24 00:30 03/27/24 00:30 Temperature Pulse Rate Pulse Rate [Bilateral Radial] Respiratory Rate 33 H Blood Pressure Blood Pressure [Left Arm] O2 Sat by Pulse Oximetry Oxygen Delivery Method Bi-pap Oxygen Flow Rate FIO2% 40 40 03/26/24 19:00 03/26/24 20:00 03/27/24 00:00 Temperature 98 F Pulse Rate 93 H 101 H Pulse Rate [Bilateral Radial] Respiratory Rate 25 H 22 Blood Pressure 110/74 86/52 Blood Pressure [Left Arm] O2 Sat by Pulse Oximetry 97 98 Oxygen Delivery Method Nasal Cannula Nasal Cannula Nasal Cannula Oxygen Flow Rate 3 3 3 FIO2% 03/27/24 00:26 03/27/24 01:00 03/27/24 00:52 Temperature Pulse Rate 96 H 101 H Pulse Rate [Bilateral Radial] Respiratory Rate 29 H 19 19 Blood Pressure 121/74 132/67 Blood Pressure [Left Arm] O2 Sat by Pulse Oximetry 92 L 95 Oxygen Delivery Method Nasal Cannula Nasal Cannula Oxygen Flow Rate 3 3 FIO2% 03/27/24 05:17 03/27/24 05:17 03/27/24 04:00 Temperature 98.6 F Pulse Rate 96 H Pulse Rate [Bilateral Radial] Respiratory Rate 35 H 23 37 H Blood Pressure 164/78 Blood Pressure [Left Arm] O2 Sat by Pulse Oximetry 86 L Oxygen Delivery Method Heated High Flow NC Bi-pap Oxygen Flow Rate 15 FIO2% 80 03/27/24 05:00 03/27/24 05:47 03/27/24 06:40 Temperature Pulse Rate 104 H Pulse Rate [Bilateral Radial] Respiratory Rate 40 H 38 H Blood Pressure 117/59 Blood Pressure [Left Arm] O2 Sat by Pulse Oximetry 91 L Oxygen Delivery Method Heated High Flow NC Bi-pap Oxygen Flow Rate FIO2% 50 03/27/24 07:00 03/26/24 17:00 03/26/24 17:00 Temperature Pulse Rate Pulse Rate [Bilateral Radial] Respiratory Rate Blood Pressure 121/58 121/58 Blood Pressure [Left Arm] O2 Sat by Pulse Oximetry Oxygen Delivery Method Bi-pap Oxygen Flow Rate FIO2% 50 03/26/24 17:00 03/26/24 18:00 03/26/24 18:04 Temperature Pulse Rate 83 98 H Pulse Rate [Bilateral Radial] Respiratory Rate 16 Blood Pressure 117/57 Blood Pressure [Left Arm] O2 Sat by Pulse Oximetry 99 95 Oxygen Delivery Method Oxygen Flow Rate FIO2% 03/26/24 18:04 03/26/24 19:00 03/26/24 20:00 Temperature Pulse Rate 92 H 105 H Pulse Rate [Bilateral Radial] Respiratory Rate Blood Pressure 110/74 Blood Pressure [Left Arm] O2 Sat by Pulse Oximetry 96 95 Oxygen Delivery Method Oxygen Flow Rate FIO2% 03/26/24 20:00 03/26/24 20:00 03/26/24 21:00 Temperature Pulse Rate 93 H Pulse Rate [Bilateral Radial] Respiratory Rate Blood Pressure 110/74 109/86 Blood Pressure [Left Arm] O2 Sat by Pulse Oximetry 97 Oxygen Delivery Method Oxygen Flow Rate FIO2% 03/26/24 21:00 03/26/24 22:00 03/26/24 22:07 Temperature Pulse Rate 113 H 102 H 108 H Pulse Rate [Bilateral Radial] Respiratory Rate 30 H 19 21 Blood Pressure Blood Pressure [Left Arm] O2 Sat by Pulse Oximetry 94 L 90 L 90 L Oxygen Delivery Method Oxygen Flow Rate FIO2% 03/26/24 22:07 03/26/24 23:00 03/26/24 23:01 Temperature Pulse Rate 97 H Pulse Rate [Bilateral Radial] Respiratory Rate 13 Blood Pressure 123/75 104/54 Blood Pressure [Left Arm] O2 Sat by Pulse Oximetry 96 Oxygen Delivery Method Oxygen Flow Rate FIO2% 03/26/24 23:01 03/27/24 00:00 03/27/24 00:01 Temperature Pulse Rate 100 H 96 H 101 H Pulse Rate [Bilateral Radial] Respiratory Rate 16 17 22 Blood Pressure Blood Pressure [Left Arm] O2 Sat by Pulse Oximetry 97 98 98 Oxygen Delivery Method Oxygen Flow Rate FIO2% 03/27/24 00:01 03/27/24 00:26 03/27/24 00:26 Temperature Pulse Rate 96 H Pulse Rate [Bilateral Radial] Respiratory Rate 29 H Blood Pressure 86/52 121/74 Blood Pressure [Left Arm] O2 Sat by Pulse Oximetry 92 L Oxygen Delivery Method Oxygen Flow Rate FIO2% 03/27/24 01:00 03/27/24 01:01 03/27/24 01:01 Temperature Pulse Rate 100 H 101 H Pulse Rate [Bilateral Radial] Respiratory Rate 19 19 Blood Pressure 132/67 Blood Pressure [Left Arm] O2 Sat by Pulse Oximetry 94 L 95 Oxygen Delivery Method Oxygen Flow Rate FIO2% 03/27/24 02:00 03/27/24 02:00 03/27/24 03:00 Temperature Pulse Rate 107 H 101 H Pulse Rate [Bilateral Radial] Respiratory Rate 25 H 20 Blood Pressure 141/87 Blood Pressure [Left Arm] O2 Sat by Pulse Oximetry 94 L 94 L Oxygen Delivery Method Oxygen Flow Rate FIO2% 03/27/24 03:01 03/27/24 03:01 03/27/24 03:05 Temperature Pulse Rate 101 H Pulse Rate [Bilateral Radial] Respiratory Rate 24 Blood Pressure 154/104 123/58 Blood Pressure [Left Arm] O2 Sat by Pulse Oximetry 94 L Oxygen Delivery Method Oxygen Flow Rate FIO2% 03/27/24 03:05 03/27/24 04:00 03/27/24 04:01 Temperature Pulse Rate 100 H 104 H 96 H Pulse Rate [Bilateral Radial] Respiratory Rate 23 34 H 37 H Blood Pressure Blood Pressure [Left Arm] O2 Sat by Pulse Oximetry 94 L 84 L 86 L Oxygen Delivery Method Oxygen Flow Rate FIO2% 03/27/24 04:01 03/27/24 04:49 03/27/24 04:49 Temperature Pulse Rate 104 H Pulse Rate [Bilateral Radial] Respiratory Rate 36 H Blood Pressure 164/78 183/90 Blood Pressure [Left Arm] O2 Sat by Pulse Oximetry 86 L Oxygen Delivery Method Oxygen Flow Rate FIO2% 03/27/24 04:52 03/27/24 04:52 03/27/24 05:00 Temperature Pulse Rate 101 H 104 H Pulse Rate [Bilateral Radial] Respiratory Rate 35 H 40 H Blood Pressure 159/70 Blood Pressure [Left Arm] O2 Sat by Pulse Oximetry 90 L 91 L Oxygen Delivery Method Oxygen Flow Rate FIO2% 03/27/24 05:00 03/27/24 06:00 03/27/24 06:01 Temperature Pulse Rate 101 H Pulse Rate [Bilateral Radial] Respiratory Rate 36 H Blood Pressure 117/59 167/93 Blood Pressure [Left Arm] O2 Sat by Pulse Oximetry 82 L Oxygen Delivery Method Oxygen Flow Rate FIO2% 03/27/24 06:01 03/27/24 07:00 03/27/24 07:01 Temperature Pulse Rate 105 H 109 H Pulse Rate [Bilateral Radial] Respiratory Rate 33 H 30 H Blood Pressure 121/59 Blood Pressure [Left Arm] O2 Sat by Pulse Oximetry 83 L 95 Oxygen Delivery Method Oxygen Flow Rate FIO2% 03/27/24 07:01 03/27/24 08:00 03/27/24 08:00 Temperature 97.9 F Pulse Rate 98 H 92 H Pulse Rate [Bilateral Radial] Respiratory Rate 22 22 Blood Pressure 125/68 Blood Pressure [Left Arm] O2 Sat by Pulse Oximetry 95 96 Oxygen Delivery Method Bi-pap Oxygen Flow Rate 50 FIO2% 03/27/24 09:04 03/27/24 09:04 03/27/24 15:21 Temperature Pulse Rate Pulse Rate [Bilateral Radial] Respiratory Rate 24 Blood Pressure Blood Pressure [Left Arm] O2 Sat by Pulse Oximetry Oxygen Delivery Method Bi-pap Oxygen Flow Rate FIO2% 50 50 03/27/24 12:00 03/27/24 09:00 03/27/24 09:00 Temperature Pulse Rate 107 H Pulse Rate [Bilateral Radial] Respiratory Rate 35 H Blood Pressure 134/83 Blood Pressure [Left Arm] O2 Sat by Pulse Oximetry 95 Oxygen Delivery Method Nasal Cannula Oxygen Flow Rate 3 FIO2% 32 03/27/24 10:00 03/27/24 10:01 03/27/24 10:01 Temperature Pulse Rate 91 H 92 H Pulse Rate [Bilateral Radial] Respiratory Rate 14 14 Blood Pressure 126/60 Blood Pressure [Left Arm] O2 Sat by Pulse Oximetry 99 99 Oxygen Delivery Method Oxygen Flow Rate FIO2% 03/27/24 11:00 03/27/24 11:00 03/27/24 12:00 Temperature Pulse Rate 89 Pulse Rate [Bilateral Radial] Respiratory Rate 12 Blood Pressure 117/70 125/78 Blood Pressure [Left Arm] O2 Sat by Pulse Oximetry 100 Oxygen Delivery Method Oxygen Flow Rate FIO2% 03/27/24 12:00 03/27/24 13:00 03/27/24 13:01 Temperature 97.9 F Pulse Rate 95 H 107 H Pulse Rate [Bilateral Radial] Respiratory Rate 24 20 Blood Pressure 136/70 Blood Pressure [Left Arm] O2 Sat by Pulse Oximetry 99 94 L Oxygen Delivery Method Nasal Cannula Oxygen Flow Rate 3 FIO2% 03/27/24 13:01 03/27/24 14:00 03/27/24 14:01 Temperature Pulse Rate 102 H 101 H 98 H Pulse Rate [Bilateral Radial] Respiratory Rate 22 17 17 Blood Pressure Blood Pressure [Left Arm] O2 Sat by Pulse Oximetry 94 L 97 97 Oxygen Delivery Method Oxygen Flow Rate FIO2% 03/27/24 14:01 03/27/24 15:00 03/27/24 15:01 Temperature Pulse Rate 100 H Pulse Rate [Bilateral Radial] Respiratory Rate 27 H Blood Pressure 120/59 142/83 Blood Pressure [Left Arm] O2 Sat by Pulse Oximetry 91 L Oxygen Delivery Method Oxygen Flow Rate FIO2% 03/27/24 15:01 03/27/24 16:21 03/27/24 20:37 Temperature 97.6 F Pulse Rate 89 83 Pulse Rate [Bilateral Radial] Respiratory Rate 22 22 Blood Pressure Blood Pressure [Left Arm] O2 Sat by Pulse Oximetry 92 L Oxygen Delivery Method Nasal Cannula Oxygen Flow Rate 4 FIO2% 03/27/24 19:00 03/27/24 19:00 03/27/24 20:00 Temperature 98.2 F Pulse Rate 95 H 117 H Pulse Rate [Bilateral Radial] Respiratory Rate 13 36 H Blood Pressure 127/70 Blood Pressure [Left Arm] O2 Sat by Pulse Oximetry 95 87 L Oxygen Delivery Method Oxygen Flow Rate FIO2% 03/27/24 20:00 03/27/24 21:00 03/27/24 21:01 Temperature Pulse Rate 112 H 110 H Pulse Rate [Bilateral Radial] Respiratory Rate 29 H 25 H Blood Pressure 144/93 Blood Pressure [Left Arm] O2 Sat by Pulse Oximetry 98 98 Oxygen Delivery Method Oxygen Flow Rate FIO2% 03/27/24 21:01 03/27/24 19:00 03/27/24 23:00 Temperature Pulse Rate 90 Pulse Rate [Bilateral Radial] Respiratory Rate 22 Blood Pressure 167/89 Blood Pressure [Left Arm] O2 Sat by Pulse Oximetry 96 Oxygen Delivery Method Nasal Cannula Oxygen Flow Rate 4 FIO2% 03/27/24 23:01 03/27/24 23:01 03/28/24 00:01 Temperature 97.8 F Pulse Rate 97 H 98 H Pulse Rate [Bilateral Radial] Respiratory Rate 21 16 Blood Pressure 139/69 Blood Pressure [Left Arm] O2 Sat by Pulse Oximetry 96 99 Oxygen Delivery Method Oxygen Flow Rate FIO2% 03/28/24 00:04 03/28/24 00:04 03/28/24 01:01 Temperature Pulse Rate 100 H Pulse Rate [Bilateral Radial] Respiratory Rate 28 H Blood Pressure 119/73 110/54 Blood Pressure [Left Arm] O2 Sat by Pulse Oximetry 92 L Oxygen Delivery Method Oxygen Flow Rate FIO2% 03/28/24 01:01 03/28/24 05:52 03/28/24 02:00 Temperature Pulse Rate 84 Pulse Rate [Bilateral Radial] Respiratory Rate 14 29 H Blood Pressure 121/80 Blood Pressure [Left Arm] O2 Sat by Pulse Oximetry 99 Oxygen Delivery Method Oxygen Flow Rate FIO2% 03/28/24 02:00 03/28/24 03:00 03/28/24 03:01 Temperature Pulse Rate 89 107 H Pulse Rate [Bilateral Radial] Respiratory Rate 30 H 25 H Blood Pressure 93/69 Blood Pressure [Left Arm] O2 Sat by Pulse Oximetry 91 L 95 Oxygen Delivery Method Oxygen Flow Rate FIO2% 03/27/24 20:53 03/28/24 02:35 03/28/24 03:00 Temperature Pulse Rate 100 H 120 H Pulse Rate [Bilateral Radial] Respiratory Rate Blood Pressure Blood Pressure [Left Arm] O2 Sat by Pulse Oximetry 86 L 86 L Oxygen Delivery Method Oxygen Flow Rate FIO2% 50 03/28/24 04:00 03/28/24 04:00 03/27/24 20:53 Temperature 97.9 F Pulse Rate 102 H Pulse Rate [Bilateral Radial] Respiratory Rate 28 H Blood Pressure 84/57 Blood Pressure [Left Arm] O2 Sat by Pulse Oximetry 97 Oxygen Delivery Method Nasal Cannula Oxygen Flow Rate 3 FIO2% 32 03/27/24 22:50 03/28/24 04:00 03/28/24 05:02 Temperature Pulse Rate 110 H Pulse Rate [Bilateral Radial] Respiratory Rate 29 H Blood Pressure Blood Pressure [Left Arm] O2 Sat by Pulse Oximetry 87 L Oxygen Delivery Method Nasal Cannula Nasal Cannula Oxygen Flow Rate 4 4 FIO2% 36 36 03/28/24 05:02 03/28/24 06:00 03/28/24 06:01 Temperature Pulse Rate 103 H Pulse Rate [Bilateral Radial] Respiratory Rate 30 H Blood Pressure 134/73 163/81 Blood Pressure [Left Arm] O2 Sat by Pulse Oximetry 92 L Oxygen Delivery Method Oxygen Flow Rate FIO2% 03/28/24 06:21 03/28/24 06:10 03/28/24 07:15 Temperature Pulse Rate Pulse Rate [Bilateral Radial] Respiratory Rate 29 H 28 H Blood Pressure Blood Pressure [Left Arm] O2 Sat by Pulse Oximetry Oxygen Delivery Method Heated High Flow NC Bi-pap Oxygen Flow Rate 15 FIO2% 42 50 03/28/24 07:15 03/28/24 07:30 03/28/24 10:06 Temperature Pulse Rate Pulse Rate [Bilateral Radial] Respiratory Rate 24 27 H Blood Pressure Blood Pressure [Left Arm] O2 Sat by Pulse Oximetry Oxygen Delivery Method Oxygen Flow Rate FIO2% 50 03/28/24 07:35 03/28/24 07:35 03/28/24 07:00 Temperature Pulse Rate Pulse Rate [Bilateral Radial] Respiratory Rate Blood Pressure Blood Pressure [Left Arm] O2 Sat by Pulse Oximetry Oxygen Delivery Method Bi-pap Heated High Flow NC Oxygen Flow Rate FIO2% 50 50 Labs: Laboratory Last Values WBC 6.2 X10^3/uL (3.6-10.0) 03/28/24 04:26 RBC 3.76 X10^6/uL (4.7-6.0) L 03/28/24 04:26 Hgb 11.4 g/dL (13.5-18.0) L 03/28/24 04:26 Hct 34.2 % (42.0-54.0) L 03/28/24 04:26 MCV 91.0 fL (80.0-100.0) 03/28/24 04:26 MCH 30.4 pg (27.0-34.0) 03/28/24 04:26 MCHC 33.4 g/dL (33.0-35.0) 03/28/24 04:26 RDW 15.9 % (11.6-16.5) 03/28/24 04:26 Plt Count 120 X10^3/uL (150.0-450.0) L 03/28/24 04:26 Plt Count Comment Adequate (ADEQUATE) 03/25/24 11:40 MPV 8.9 fL (7.4-11.0) 03/28/24 04:26 Neut % (Auto) 81.6 % (42.0-75.0) H 03/28/24 04:26 Lymph % (Auto) 5.0 % (21.0-51.0) L 03/28/24 04:26 Morton % (Auto) 8.6 % (0.0-13.0) 03/28/24 04:26 Eos % (Auto) 3.8 % (0.9-2.9) H 03/28/24 04:26 Baso % (Auto) 1.0 % (0.2-1.0) 03/28/24 04:26 Neut # (Auto) 5.0 x10^3/uL (2.2-4.8) H 03/28/24 04:26 Lymph # (Auto) 0.3 X10^3/uL (1.3-2.9) L 03/28/24 04:26 Morton # (Auto) 0.5 x10^3/uL (0.3-0.8) 03/28/24 04:26 Eos # (Auto) 0.2 x10^3/uL (0.0-0.2) 03/28/24 04:26 Baso # (Auto) 0.1 X10^3/uL (0.0-0.1) 03/28/24 04:26 Absolute Nucleated RBC 0.1 /100WBC 03/28/24 04:26 Total Counted 100 03/25/24 11:40 Neutrophils % (Manual) 96 % (39-76) H 03/25/24 11:40 Lymphocytes % (Manual) 4 % (13-43) L 03/25/24 11:40 Plt Morphology Comment Normal (NORMAL) 03/25/24 11:40 RBC Morphology Normal (NORMAL) 03/25/24 11:40 Sample Site Lrad 03/25/24 13:20 ABG pH 7.430 (7.35-7.45) 03/25/24 13:20 ABG pCO2 79.0 mmHg (35.0-45.0) H* 03/25/24 13:20 ABG pO2 82.0 mmHg (80.0-100.0) 03/25/24 13:20 ABG HCO3 52.4 mmol/L (22-26) H* 03/25/24 13:20 ABG O2 Saturation 96.0 % (90-100) 03/25/24 13:20 ABG Base Excess 23.4 mmol/L (-2.0-2.0) H 03/25/24 13:20 Rodriguez Test Pos 03/25/24 13:20 A-a Gradient 104.0 mmHg 03/25/24 13:20 FiO2 40.0 03/25/24 13:20 Blood Gas Comments Pt amairani well elj kg 03/25/24 13:20 Sodium 142 mmol/L (136-145) 03/28/24 04:26 Corrected Sodium TNP 03/28/24 04:26 Potassium 5.0 mmol/L (3.5-5.1) 03/28/24 04:26 Chloride 103 mmol/L (98-107) 03/28/24 04:26 Carbon Dioxide 33.9 mmol/L (21-32) H 03/28/24 04:26 BUN 11 mg/dL (7-18) 03/28/24 04:26 Creatinine 1.00 mg/dL (0.70-1.30) 03/28/24 04:26 Est GFR (MDRD) Af Amer > 60 (>60) 03/28/24 04:26 Est GFR (MDRD) Non-Af > 60 (>60) 03/28/24 04:26 Glucose 109 mg/dL (65-99) H 03/28/24 04:26 Lactic Acid 1.8 mmol/L (0.4-2.0) 03/25/24 11:40 Calcium 9.1 mg/dL (8.5-10.1) 03/28/24 04:26 Corrected Calcium 10.2 mg/dL (8.5-10.1) H 03/28/24 04:26 Magnesium 1.7 mg/dL (2.0-2.9) L 03/28/24 04:26 Total Bilirubin 1.00 mg/dL (0.2-1.0) 03/28/24 04:26 AST 33 Units/L (15-37) 03/28/24 04:26 ALT 17 Units/L (12-78) 03/28/24 04:26 Alkaline Phosphatase 97 Units/L (46-116) 03/28/24 04:26 Troponin I High Sens 43.2 ng/L (4.0-60.0) 03/25/24 11:40 B-Natriuretic Peptide 675 pg/mL (0-79) H 03/25/24 11:40 Total Protein 6.5 g/dL (6.4-8.2) 03/28/24 04:26 Albumin 2.6 g/dL (3.4-5.0) L 03/28/24 04:26 Globulin 3.9 g/dL (2.5-4.5) 03/28/24 04:26 Albumin/Globulin Ratio 0.7 Ratio (1.1-2.1) L 03/28/24 04:26 Specimen Type Catherized urine 03/25/24 12:16 Urine Color Yellow (YELLOW) 03/25/24 12:16 Urine Appearance Slightly hazy (CLEAR) 03/25/24 12:16 Urine pH 5.0 (5.0 - 8.0) 03/25/24 12:16 Ur Specific Toney 1.025 (1.000-1.030) 03/25/24 12:16 Urine Protein 3+ (NEGATIVE) 03/25/24 12:16 Urine Glucose (UA) Negative (NEGATIVE) 03/25/24 12:16 Urine Ketones Negative (NEGATIVE) 03/25/24 12:16 Urine Blood 2+ (NEGATIVE) 03/25/24 12:16 Urine Nitrite Negative (NEGATIVE) 03/25/24 12:16 Urine Bilirubin Negative (NEGATIVE) 03/25/24 12:16 Urine Urobilinogen 1+ (NORMAL) 03/25/24 12:16 Ur Leukocyte Esterase Negative (NEGATIVE) 03/25/24 12:16 Urine RBC 3-5 /HPF (0-3) A 03/25/24 12:16 Urine WBC 0-2 /HPF (0-5) 03/25/24 12:16 Ur Squamous Epith Cells Few /HPF (NEGATIVE) 03/25/24 12:16 Ur Transition Epith Cell Few /HPF (NEGATIVE) 03/25/24 12:16 Urine Bacteria Trace /HPF (NEGATIVE) 03/25/24 12:16 Hyaline Casts Many /LPF (NEGATIVE) 03/25/24 12:16 Ur Culture Indicated? No/not indicated 03/25/24 12:16 Vancomycin Trough 16.8 ug/mL (15-20) 03/27/24 08:59 Digoxin 0.41 ng/mL (0.9-2) L 03/27/24 20:05 SARS-CoV-2 (PCR) Negative (NEGATIVE) 03/25/24 11:37 Influenza Type A (PCR) Negative (NEGATIVE) 03/25/24 11:37 Influenza Type B (PCR) Negative (NEGATIVE) 03/25/24 11:37 RSV (PCR) Negative (NEGATIVE) 03/25/24 11:37 Blood Type O POSITIVE 03/25/24 22:04 Antibody Screen Negative 03/25/24 22:04 Crossmatch See Detail 03/25/24 22:04 Reason For Visit: PNEUMONIA, CHF EXACERBATION, RESP FAIL/HYPOXIA Discharge Date Discharge Date: 03/28/24 Discharge Diagnosis All Active Problems (Updated 03/26/24 @ 09:49 by Bethany Ramsay MD) Pneumonia (Acute) Severe anemia (Chronic) Acute kidney failure (Acute) Constipation (Acute) Fatigue (Acute) Pneumonia involving left lung (Acute) Lung cancer (Chronic) Respiratory failure with hypoxia (Chronic) Anemia (Acute) Atrial fibrillation (Chronic) Chronic respiratory failure (Chronic) S/P TAVR (transcatheter aortic valve replacement) (Chronic) Hypokalemia (Acute) Hypomagnesemia (Acute) CHF exacerbation (Acute) Right lower lobe lung mass (Chronic) Pleural effusion, right (Acute) AAA (abdominal aortic aneurysm) (Acute) Atrial fibrillation with RVR (Acute) History of lung cancer (Acute) CAD (coronary artery disease) (Chronic) Neuropathy (Acute) Hypertension (Chronic) Hyperlipidemia (Acute) Congestive heart failure (Chronic) Vertigo (Chronic) GERD (gastroesophageal reflux disease) (Chronic) Plan of Treatment: Continue with present treatment and follow up plan. Pt is to keep follow up appointment as instructed and take medications as ordered. Discharge Medications Discharge Medications: warfarin [From Coumadin] Adverse Reaction (Intermediate, Verified 02/29/24 08:15) gastric bleeding CONTINUE taking the following medications albuterol sulfate 90 mcg/actuation aerosol inhaler 2 puff inhalation PRN PRN 03/25/24 [History] amiodarone 200 mg tablet 200 mg PO BID 03/25/24 [History] apixaban 2.5 mg tablet (Eliquis) 2.5 mg PO BID 03/25/24 [History] metoprolol tartrate 50 mg tablet 50 mg PO BID 03/25/24 [History] pantoprazole 40 mg tablet,delayed release 40 mg PO BID 03/25/24 [History] Discharge Disposition Assessment: Stable at discharge. Discharge Plan Discharge Plan Hospital Course: *Patient discharged home hospice. Patient is a 78y/o male with a PMH of lung cancer s/p lobectomy, CAD s/p CABG, CHF, HTN, HLD, atrial fibrillation and anemia admitted for pneumonia, acute on chronic respiratory failure, and anemia. He is currently on IV antibiotics and bronchodilators. He is currently on bipap support due to hypercapnia and hypoxia. He does alternate between high flow and bipap. No acute events overnight. Labs/imaging reviewed: -WBC 6.2, hemoglobin 11.4, platelets 120, sodium 142, potassium 5.0, creatinine 1.00, glucose 109 Plan: Continue ICU care for closer monitoring, wean O2 as tolerated. BiPAP prn. Hemoglobin stabilized s/p 2 units packed red blood cells. Monitor H&H. Continue IV antibiotics and bronchodilators. Follow pending cultures. Hold lasix and lisinopril, other home medications have been resumed. Monitor BP. Replace K and mag as per protocol. Will increase morphine frequency due to air hunger. Patient has had recurrent admission and seems to be declining in health due to malignancy. Family member present at bedside, updated treatment plan. Family is awaiting hospice as patient is not a candidate for any aggressive chemo/radiation. He was not able to tolerate chemo and did receive palliative radiation for a lesion in the trachea. Hospice has been contacted to discuss further options. Patient is a DNR. Monitor AM labs/imaging. Time spent for clinical assessment, reviewing labs/imaging, physical exam, decision making and documentation greater than 45 mins. Patient Disposition: 50 DISCHARGED TO HOSPICE -HOME Condition: Stable Health Concerns: Post Hospitalization: new medications and changes needed to prevent readmission or further decline. Pt educated and given instructions on all concerns. Care Plan Goals: Problem: Respiratory Complications Goal: Improved Uncomplicated Respiratory Status Instructions: Follow provided instructions. Follow up with primary physician as directed. Contact primary care physician or report to the closest Emergency Room if condition worsens. Plan of Treatment: Continue with present treatment and follow up plan. Pt is to keep follow up appointment as instructed and take medications as ordered. Assessment: Stable at discharge. Prescriptions: No Action magnesium oxide 400 mg magnesium capsule 400 mg PO QDAY 30 Days Qty: 30 0RF rosuvastatin 40 mg tablet 40 mg PO QDAY 30 Days Qty: 30 0RF albuterol sulfate 90 mcg/actuation HFA aerosol inhaler 1 inh inhalation ONCE PRN (Reason: shortness of breath or wheezing) Qty: 6.7 0RF Artificial Tears (cmc) 1 % drops 1 drp ophthalmic (eye) QID PRN (Reason: dry eye(s)) Qty: 15 0RF cholecalciferol (vitamin D3) 50 mcg (2,000 unit) capsule 50 mcg PO QDAY 30 Days Qty: 30 0RF multivitamin Tablet 1 tab PO QDAY 30 Days Qty: 30 0RF vitamin B complex [Vitamins B Complex] Capsule 1 cap PO QDAY 30 Days Qty: 30 0RF Stiolto Respimat 2.5-2.5 mcg/actuation mist 2 puff inhalation QDAY Qty: 4 0RF furosemide 40 mg Tablet 40 mg PO QDAY digoxin 125 mcg (0.125 mg) Tablet 125 mcg PO HS albuterol sulfate [ProAir HFA] 90 mcg/actuation Hfa Aerosol Inhaler 2 puff INHALATION PRN PRN amiodarone 200 mg Tablet 200 mg PO BID pantoprazole 40 mg Tablet,Delayed Release (Dr/Ec) 40 mg PO BID metoprolol tartrate 50 mg Tablet 50 mg PO BID Eliquis 2.5 mg Tablet 2.5 mg PO BID Follow ups/Referrals Follow ups/Referrals: [facility] [Other] Instructions Instructions: and Dying, Palliative Care, End-of-Life Care, Hospice Stand Alone Forms: Find Help Web Site, Post Hospital Follow Up Care
[2024-03-29] MEDS ORDERED: PHARMACY COMMENT IV SCH (17:00)
== END 2024-03-28 15:30 | disposition hospice, home (50) | DRG 193 ==
LOC: ER 11:05 → ICU 16:49
PROVIDERS: ADMIT Internal Medicine; ATTEND Internal Medicine
DX: Z90.2 Acquired absence of lung [part of]; E83.42 Hypomagnesemia; I48.20 Chronic atrial fibrillation, unspecified; R45.1 Restlessness and agitation; Z66 Do not resuscitate; I50.9 Heart failure, unspecified; Z99.81 Dependence on supplemental oxygen; E87.0 Hyperosmolality and hypernatremia; N17.8 Other acute kidney failure; I11.0 Hypertensive heart disease with heart failure; L89.159 Pressure ulcer of sacral region, unspecified stage; R53.1 Weakness; J96.21 Acute and chronic respiratory failure with hypoxia; R94.31 Abnormal electrocardiogram [ECG] [EKG]; D64.89 Other specified anemias; C34.91 Malignant neoplasm of unspecified part of right bronchus or lung; J18.8 Other pneumonia, unspecified organism; E11.65 Type 2 diabetes mellitus with hyperglycemia; Z03.818 Encounter for observation for suspected exposure to other biological agents ruled out